=== PATIENT | male | born 1965 | race African-American/Black ===

== ENCOUNTER 2016-10-07 10:36 | Inpatient (IN) | payer OTHER ==
[~2016-10-07] VITALS: Ht 188 cm; Wt 59.9 kg
[~2016-10-07 10:36] MED LIST: CIPRO250 MG ORAL; DOK100 M1 PO; FLUCONAZOLE100 MG ORAL; LANTUS SOL100 UNIT/1 SUBQ; NOVOLIN R100 UNIT/1 SUBQ; NOVOLOG100 UNITS1 SUBQ; OXYBUTYNIN CHLOR5 GM MC; PROTONIX40 MG ORAL; TAMSULOSIN HCL0.4 MG ORAL
[2016-10-07 11:45] LABS: BASOPHILS % (AUTO) 1.2 % (0.0-2.0); EOSINOPHILS % (AUTO) 0.1 % (0.0-3.0); MEAN CORPUSCULAR HEMOGLOBIN 34.8 PG (27.0-31.0); MEAN CORPUSCULAR HGB CONC 32.9 G/DL (32.0-36.0); MEAN CORPUSCULAR VOLUME 106 FL (80-99); MEAN PLATELET VOLUME 8.2 FL (6.5-10.1); NEUTROPHILS % (AUTO) 77.7 % (45.0-75.0); PLATELET COUNT 153 K/UL (150-450); RED BLOOD COUNT 4.58 M/UL (4.70-6.10); RED CELL DISTRIBUTION WIDTH 11.7 % (11.6-14.8); WHITE BLOOD COUNT 10.4 K/UL (4.8-10.8)
[2016-10-07 11:57] LABS: PROTHROMBIN TIME 10.3 SEC (9.30-11.50)
[2016-10-07 11:59] LABS: ALANINE AMINOTRANSFERASE 25 U/L (3-41); ALBUMIN/GLOBULIN RATIO 1.3 (1.0-2.7); ANION GAP 34 (5-15); ASPARTATE AMINO TRANSFERASE 13 U/L (5-40); CALCIUM 9.7 mg/dL (8.6-10.2); CARBON DIOXIDE 11 mEQ/L (20-30); CHLORIDE 87 mEQ/L (98-107); GLOMERULAR FILTRATION RATE > 60 mL/min (>60); HEMOLYSIS 4; LIPASE 12 U/L (< 60); SODIUM 132 mEQ/L (135-145); TOTAL PROTEIN 7.8 g/dL (6.6-8.7); TROPONIN I < 0.30 ng/mL (<=0.30)
[2016-10-07 12:00] VITALS: BP 117/77
[2016-10-07 12:00] LABS: REFLEX LACTIC ACID YES OR NO YES
--- NOTE | 2016-10-07 12:05 | Diagnostic Imaging Report ---
Indication: Chest Pain Comparison: None A single view chest radiograph was obtained. Findings: Ill-defined right basilar density noted. Pneumonia suspected. Heart size is normal. Bones are osteopenic. Impression: Right basilar pneumonia suspected. Please correlate clinically
[2016-10-07 12:10] LABS: CKMB < 1.5 ng/mL (< 6.7)
[2016-10-07] MEDS ORDERED: Albuterol ud Inhalation HHN ONE (12:15)
[2016-10-07] MEDS ORDERED: Ipratropium 0.02% Inh Soln 2.5ml UD HHN ONE (12:15)
[2016-10-07 12:38] LABS: APPEARANCE,URINE CLEAR; KETONES,URINE 4+ (NEGATIVE); LEUKOCYTE ESTERASE ,URINE NEGATIVE (NEGATIVE); NITRITE,URINE NEGATIVE (NEGATIVE); PH,URINE 5 (4.5-8.0); PROTEIN,URINE 2+ (NEGATIVE); UROBILINOGEN,URINE NORMAL MG/DL (0.0-1.0)
[2016-10-07 12:54] LABS: BACTERIA,URINE OCCASIONAL /HPF; SQUAMOUS EPITHELIAL CELL,UR OCCASIONAL /LPF (NONE/OCC); WBC,URINE 0-2 /HPF (0 - 0)
[2016-10-07 12:55] LABS: MUCUS,URINE OCCASIONAL /LPF (NONE/OCC)
--- NOTE | 2016-10-07 14:26 | Emergency Room Report ---
History of Present Illness General Chief Complaint: Dyspnea/Respdistress Source: Patient Present Illness HPI Patient presents with complaints of cough and congestion General weakness questionable low-grade fevers Symptoms ongoing for the past 4 days Denies any diarrhea however he has had increased nausea and vomiting Also has had elevated blood glucose Patient describes the cough is productive Denies any recent travel Denies any neck pain or photophobia Allergies: Coded Allergies: No Known Allergies (Unverified , 12/17/15) Patient History Past Medical History: see triage record Pertinent Family History: none Reviewed Nursing Documentation: PMH: Agreed, PSxH: Agreed Nursing Documentation-PMH Hx Cardiac Problems: No Hx Hypertension: No Hx Pacemaker: No Hx Asthma: No Hx COPD: No Hx Diabetes: No Hx Cancer: No Hx Gastrointestinal Problems: No Hx Dialysis: No History Of Psychiatric Problem: No Hx Neurological Problems: No Hx Cerebrovascular Accident: No Hx Seizures: No Review of Systems All Other Systems: negative except mentioned in HPI Physical Exam Vital Signs Date Time Temp Pulse Resp B/P Pulse Ox O2 Delivery O2 Flow Rate FiO2 10/07/16 10:35 98.1 113 18 128/80 98 Room Air Sp02 EP Interpretation: reviewed, normal General Appearance: no apparent distress Head: normocephalic, atraumatic Eyes: bilateral eye EOMI, bilateral eye PERRL ENT: hearing grossly normal, TMs + canals normal, uvula midline, dry mucus membranes Neck: full range of motion, supple, no meningismus, no bony tend Respiratory: no respiratory distress, no retraction, no accessory muscle use, crackles - Diffusely, and appears tachypnic Cardiovascular #1: normal peripheral pulses, regular rate, rhythm, no edema, no gallop, no JVD, no murmur Gastrointestinal: normal bowel sounds, non tender, soft, no mass, no organomegaly, non-distended, no guarding, no hernia, no pulsatile mass, no rebound Genitourinary: no CVA tenderness Musculoskeletal: normal inspection Neurologic: oriented x3, responsive, automation qa analyst III-XII nml as tested, motor strength/ tone normal, sensory intact Psychiatric: mood/affect normal Skin: warm/dry, palpation normal, other - poor turgor Lymphatic: normal inspection, no adenopathy Medical Decision Making Diagnostic Impression: Primary Impression: Pneumonia Additional Impressions: Dehydration Hyperglycemia ER Course Patient is a fairly complex patient with multiple differential to consideration including but not limited to cardiac cardiopulmonary and vascular emergencies Patient's x-ray imaging shows a right lower lobe infiltrate patient's glucose remains elevated Patient required acute intervention including hydration and antibiotics At this time admitted for further care Labs Test 10/07/16 11:30 10/07/16 12:20 White Blood Count 10.4 K/UL (4.8-10.8) Red Blood Count 4.58 M/UL (4.70-6.10) Hemoglobin 16.0 G/DL (14.2-18.0) Hematocrit 48.5 % (42.0-52.0) Mean Corpuscular Volume 106 FL (80-99) Mean Corpuscular Hemoglobin 34.8 PG (27.0-31.0) Mean Corpuscular Hemoglobin Concent 32.9 G/DL (32.0-36.0) Red Cell Distribution Width 11.7 % (11.6-14.8) Platelet Count 153 K/UL (150-450) Mean Platelet Volume 8.2 FL (6.5-10.1) Neutrophils (%) (Auto) 77.7 % (45.0-75.0) Lymphocytes (%) (Auto) 6.0 % (20.0-45.0) Monocytes (%) (Auto) 15.0 % (1.0-10.0) Eosinophils (%) (Auto) 0.1 % (0.0-3.0) Basophils (%) (Auto) 1.2 % (0.0-2.0) Prothrombin Time 10.3 SEC (9.30-11.50) Prothromb Time International Ratio 1.0 (0.9-1.1) Activated Partial Thromboplast Time 31 SEC (23-33) Sodium Level 132 mEQ/L (135-145) Potassium Level 4.0 mEQ/L (3.4-4.9) Chloride Level 87 mEQ/L (98-107) Carbon Dioxide Level 11 mEQ/L (20-30) Anion Gap 34 (5-15) Blood Urea Nitrogen 4 mg/dL (7-23) Creatinine 1.0 mg/dL (0.7-1.2) Estimat Glomerular Filtration Rate > 60 mL/min (>60) Glucose Level 384 mg/dL (74-106) Lactic Acid Level 2.10 mmol/L (0.66-2.22) Calcium Level 9.7 mg/dL (8.6-10.2) Total Bilirubin 0.4 mg/dL (0.0-1.2) Aspartate Amino Transf (AST/SGOT) 13 U/L (5-40) Alanine Aminotransferase (ALT/SGPT) 25 U/L (3-41) Alkaline Phosphatase 90 U/L (40-129) Total Creatine Kinase 24 U/L (38-174) Creatine Kinase MB < 1.5 ng/mL (< 6.7) Creatine Kinase MB Relative Index Troponin I < 0.30 ng/mL (<=0.30) Pro-B-Type Natriuretic Peptide 407 pg/mL (0-125) Total Protein 7.8 g/dL (6.6-8.7) Albumin 4.5 g/dL (3.5-5.2) Globulin 3.3 g/dL Albumin/Globulin Ratio 1.3 (1.0-2.7) Lipase 12 U/L (< 60) Urine Color Pale yellow Urine Appearance Clear Urine pH 5 (4.5-8.0) Urine Specific [place] 1.020 (1.005-1.035) Urine Protein 2+ (NEGATIVE) Urine Glucose (UA) 4+ (NEGATIVE) Urine Ketones 4+ (NEGATIVE) Urine Occult Blood 1+ (NEGATIVE) Urine Nitrite Negative (NEGATIVE) Urine Bilirubin Negative (NEGATIVE) Urine Urobilinogen Normal MG/DL (0.0-1.0) Urine Leukocyte Esterase Negative (NEGATIVE) Urine RBC 2-4 /HPF (0 - 0) Urine WBC 0-2 /HPF (0 - 0) Urine Squamous Epithelial Cells Occasional /LPF Urine Bacteria Occasional /HPF (NONE) Urine Mucus Occasional /LPF Rhythm Strip Diag. Results EP Interpretation: yes Rate: 105 Rhythm: no PVC's, no ectopy, other - sinus tach Chest X-Ray Diagnostic Results EP Interpretation: Yes Findings: no effusion, no pneumothorax, other - Right lower lobe infiltrate Number of Views: 1 Last Vital Signs Date Time Temp Pulse Resp B/P Pulse Ox O2 Delivery O2 Flow Rate FiO2 10/07/16 12:00 98.1 103 20 117/77 99 Room Air Status: improved Disposition: ADMITTED INPATIENT Condition: Serious Referrals: SUZAN HARMON,REFERRING (PCP) ALONZO ARNOLD D.O. Oct 07, 2016 14:26
[2016-10-07 15:00] VITALS: BP 114/73
[2016-10-07 17:16] VITALS: BP 110/64
--- NOTE | 2016-10-07 18:49 | Cardiology Report ---
APPROVED REPORT EKG Measurement Heart [id number] Sinus tachycardia Possible Left atrial enlargement Cannot rule out Anterior infarct, age undetermined Abnormal ECG
[2016-10-07] MEDS ORDERED: DuoNeb 0.5-3(2.5)mg/3ml neb HHN PRN (19:45)
[2016-10-07] MEDS ORDERED: Miralax 17gm pkt ORAL PRN (19:45)
[2016-10-07] MEDS ORDERED: Nitroglycerin Subl 0.4mg tab (Bottle Of 25) SL PRN (19:45)
[2016-10-07] MEDS ORDERED: Mylanta II UD 30ml ORAL PRN (19:45)
[2016-10-07 20:00] VITALS: BP 120/81
[2016-10-07] MEDS: Heparin 5000 units/ml inj SUBQ SCH (21:00)
[2016-10-07] MEDS: Promethazine/Codeine 5ml UD ORAL PRN (21:01)
[2016-10-07] MEDS: Cefepime HCl 1 GM in D5W 55 ML IV SCH (21:01)
[2016-10-07] MEDS: NovoLOG Insulin Flexpen SUBQ SCH (21:04)
[2016-10-08] VITALS: BP 113/71
[2016-10-08] MEDS: Promethazine/Codeine 5ml UD ORAL PRN (00:57)
[2016-10-08] MEDS ORDERED: Potassium Chloride 40 MEQ in Sodium Chloride 550 ML IV ONE (02:00)
[2016-10-08 04:00] VITALS: BP 103/67
[2016-10-08] MEDS: NovoLOG Insulin Flexpen SUBQ SCH ×4 (05:58→21:42)
[2016-10-08 07:15] LABS: BASOPHILS % (AUTO) 0.8 % (0.0-2.0); LYMPHOCYTES % (AUTO) 8.2 % (20.0-45.0); MEAN CORPUSCULAR HEMOGLOBIN 34.7 PG (27.0-31.0); MEAN CORPUSCULAR HGB CONC 33.9 G/DL (32.0-36.0); MEAN CORPUSCULAR VOLUME 102 FL (80-99); MEAN PLATELET VOLUME 7.8 FL (6.5-10.1); MONOCYTES % (AUTO) 14.6 % (1.0-10.0); NEUTROPHILS % (AUTO) 76.4 % (45.0-75.0); PLATELET COUNT 133 K/UL (150-450); RED BLOOD COUNT 3.61 M/UL (4.70-6.10)
[2016-10-08 07:46] LABS: ANION GAP 18 (5-15); CALCIUM 8.9 mg/dL (8.6-10.2); CARBON DIOXIDE 17 mEQ/L (20-30); CHLORIDE 92 mEQ/L (98-107); CREATININE 0.7 mg/dL (0.7-1.2); GLOMERULAR FILTRATION RATE > 60 mL/min (>60); HEMOLYSIS 0; PHOSPHORUS 1.3 mg/dL (2.5-4.8); POTASSIUM 2.9 mEQ/L (3.4-4.9); SODIUM 127 mEQ/L (135-145)
[2016-10-08 08:00] VITALS: BP 99/60
[2016-10-08] MEDS: Heparin 5000 units/ml inj SUBQ SCH ×2 (08:10→21:41)
--- NOTE | 2016-10-08 08:59 | Consultation ---
Consult Note Consult Note ID CONSULT: Dict# [id number] Assessment/Plan ASSESSMENT: 51 y/o male with: // RLL PNA - SCx, legionella UAg pending - CXR 10/07: Right basilar pneumonia suspected - h/o right empyema SP VATS // Periodontal disease // Acute leukocytosis - mild, afebrile // Unintentional weigh loss / cachexia r/o HIV, TB, SBE, CA, malabsorption - h/o PPD(-) // Hyponatremia / electrolyte imbalance // Chronic pancreatitis // Tobacco abuse // NKDA // Full Code PLAN: - continue cefepime d# 1, add azithromycin atypical coverage - check HIV, PPD, influenza, tumor markers, consider CT imaging - f/u cultures, legionella UAg - monitor CBC, temperatures - monitor BMP - monitor CXR Thanks! Will follow HANH LUGO Oct 08, 2016 08:59
[2016-10-08] MEDS: Cefepime HCl 1 GM in D5W 55 ML IV SCH ×2 (09:24→21:00)
[2016-10-08] MEDS ORDERED: Azithromycin 250mg tab ORAL ONE (10:00)
[2016-10-08] MEDS ORDERED: PPD Tuberculin Skin Test 5TU IDERMAL ONE (11:00)
--- NOTE | 2016-10-08 11:27 | Consultation ---
DATE OF CONSULTATION: 10/08/2016 INFECTIOUS DISEASE CONSULTATION: REQUESTING PHYSICIAN: Pio Stover M.D. REASON FOR CONSULTATION: Pneumonia. HISTORY OF PRESENT ILLNESS: This is a 51-year-old male admitted on 10/07/2016 with productive cough x4 days. Chest x-ray shows suspected right lower lobe pneumonia. He does have a history of right-sided empyema previously requiring VATS. He has associated unintentional weight loss and is cachectic. He is afebrile with mild leukocytosis with left shift. Lactic acidosis, lipase and liver function tests are within normal limits. Sputum cultures and blood cultures are pending. He has been started on empiric cefepime and ID now consulted to assist in management. PAST MEDICAL HISTORY: 1. Chronic pancreatitis. 2. Hiatal hernia. 3. BPH. 4. Right-sided empyema. PAST SURGICAL HISTORY: VATS on the right side. FAMILY HISTORY: Noncontributory. SOCIAL HISTORY: The patient is an active smoker. ALLERGIES: No known drug allergies. MEDICATIONS: 1. Cefepime. 2. Subcutaneous heparin. 3. DuoNebs. REVIEW OF SYSTEMS: As per history of present illness. Ten systems reviewed. All pertinent positives and negatives noted. PHYSICAL EXAMINATION: VITAL SIGNS: Maximum temperature 98.4, blood pressure 103/67, heart rate in the 70s, respiratory rate 20, and saturating 96% on room air. GENERAL: No apparent distress. Nontoxic appearing. CARDIOVASCULAR: Regular rate and rhythm. No murmurs. HEENT EXAM: No thrush. Poor dentition. PULMONARY: Clear to auscultation bilaterally. ABDOMINAL EXAM: Bowel sounds present. Soft, nondistended, and nontender. EXTREMITIES: No edema. SKIN EXAM: No rash. NEUROLOGICAL EXAM: Alert and oriented x3, nonfocal. LABORATORY DATA: White blood cell count of 11 increased from 10.4 with left shift, hemoglobin 12.5, and platelets 133,000. Sodium 127, potassium 2.9, chloride 92, bicarb 17, BUN 6, creatinine 0.7. Lactic acid 2.1 decreased to 1.3. Lipase and liver function tests within normal limits. Troponin negative x1. BNP 407. MICROBIOLOGY: 1. 10/07/2016 sputum culture pending. 2. 10/07/2016 blood culture pending. IMAGIN10/07/2016 right lower lobe pneumonia suspected. ASSESSMENT: 1. Right lower lobe pneumonia. Sputum culture and Legionella antigens are pending. Chest x-ray shows a suspected right basilar pneumonia. He does have a history of right-sided empyema previously requiring VATS. 2. Periodontal disease. 3. Acute leukocytosis, mild and afebrile. 4. Unintentional weight loss and cachexia, rule out human immunodeficiency, tuberculosis, endocarditis, malignancy, or malabsorption. He has a history of a negative PPDs in the past. 5. Hyponatremia ____/electrolyte imbalance. 6. Chronic pancreatitis. 7. Tobacco abuse. 8. No known drug allergies. 9. Full Code. PLAN: 1. Continue cefepime day #1 and add azithromycin day #1, atypical coverage. 2. Check human immunodeficiency virus PPD influenza and tumor markers. Also consider CT imaging. 3. Follow up cultures and Legionella urine antigen. 4. Monitor CBC and temperatures. 5. Monitor BMP. 6. Monitor chest x-ray. Thank you. We will follow. Kareem Maxwell M.D. DR: INDER JOB#: [id number] CC: Pio Stover M.D.; Fax#: [phone] Garcia M.D; Fax#: [phone]
[2016-10-08 12:00] VITALS: BP 104/69
--- NOTE | 2016-10-08 18:13 | History and Physical ---
History of Present Illness General Date patient seen: Oct 08, 2016 Reason for Hospitalization: Dyspnea/Respdistress Present Illness HPI 51 year old male with hx of copd presents with complaints of cough and congestion low-grade fevers for the past 4 days the cough is productive. He has a history of pneumonia and empyema. Looks chronically ill and cachectic. Allergies: Coded Allergies: No Known Allergies (Unverified , 12/17/15) Medication History Scheduled Fluconazole (Fluconazole), 100 MG ORAL DAILY Insulin Aspart (Novolog Flexpen), 12 UNITS SUBQ NOVOTIAC Insulin Glargine (Lantus), 20 UNIT SUBQ BEDTIME Insulin Regular, Human* (Novolin R*), 0 SUBQ .SLIDING SCALE, (Reported) Pantoprazole* (Protonix*), 40 MG ORAL DAILY Miscellaneous Medications Docusate Sodium (Dok), 100 MG PO, (Reported) Patient History Healthcare decision maker Resuscitation status Full Code Advanced Directive on File Past Medical/Surgical History Past Medical/Surgical History: (1) Pneumonia (2) Abdominal pain (3) Hyperglycemia Review of Systems All Other Systems: negative except mentioned in HPI Physical Exam General Appearance: cachetic Lines, tubes and drains: peripheral, central line HEENT: normocephalic, atraumatic Neck: non-tender, normal alignment Respiratory/Chest: chest wall non-tender, lungs clear Abdomen: normal bowel sounds, non tender Genitourinary/Rectal: normal genital exam, normal rectal exam Extremities: normal range of motion, non-tender, non-pitting 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 Lymphatic: anterior cervical Last 24 Hour Vital Signs Date Time Temp Pulse Resp B/P Pulse Ox O2 Delivery O2 Flow Rate FiO2 10/08/16 16:15 90 18 97 Room Air 10/08/16 16:14 90 18 97 Room Air 10/08/16 12:00 98.2 86 20 104/69 97 Room Air 10/08/16 11:42 89 18 98 Room Air 10/08/16 11:41 89 18 98 Room Air 10/08/16 08:49 89 18 98 Room Air 10/08/16 08:43 88 20 Room Air 21 10/08/16 08:43 88 18 98 Room Air 10/08/16 08:00 98.1 76 20 99/60 96 Room Air 10/08/16 06:54 98.1 10/08/16 04:00 98.4 94 18 103/67 100 Room Air 10/08/16 00:00 98.1 106 18 113/71 97 Room Air 10/07/16 21:49 97 18 Room Air 21 10/07/16 20:00 98.1 96 18 120/81 99 Room Air Intake and Output 10/07/16 10/08/16 19:00 07:00 Intake Total 2150 ml 490 ml Output Total 500 ml Balance 2150 ml -10 ml Intake Oral 0 ml 490 ml IV Total 2150 ml Output Urine Total 500 ml # Voids 2 Laboratory Tests Test 10/08/16 05:35 White Blood Count 11.0 K/UL (4.8-10.8) H Red Blood Count 3.61 M/UL (4.70-6.10) L Hemoglobin 12.5 G/DL (14.2-18.0) L Hematocrit 36.9 % (42.0-52.0) L Mean Corpuscular Volume 102 FL (80-99) H Mean Corpuscular Hemoglobin 34.7 PG (27.0-31.0) H Mean Corpuscular Hemoglobin Concent 33.9 G/DL (32.0-36.0) Red Cell Distribution Width 11.0 % (11.6-14.8) L Platelet Count 133 K/UL (150-450) L Mean Platelet Volume 7.8 FL (6.5-10.1) Neutrophils (%) (Auto) 76.4 % (45.0-75.0) H Lymphocytes (%) (Auto) 8.2 % (20.0-45.0) L Monocytes (%) (Auto) 14.6 % (1.0-10.0) H Eosinophils (%) (Auto) 0.0 % (0.0-3.0) Basophils (%) (Auto) 0.8 % (0.0-2.0) Sodium Level 127 mEQ/L (135-145) L Potassium Level 2.9 mEQ/L (3.4-4.9) L Chloride Level 92 mEQ/L (98-107) L Carbon Dioxide Level 17 mEQ/L (20-30) L Anion Gap 18 (5-15) H Blood Urea Nitrogen 6 mg/dL (7-23) L Creatinine 0.7 mg/dL (0.7-1.2) Estimat Glomerular Filtration Rate > 60 mL/min (>60) Glucose Level 432 mg/dL (74-106) H Calcium Level 8.9 mg/dL (8.6-10.2) Phosphorus Level 1.3 mg/dL (2.5-4.8) L Albumin 3.1 g/dL (3.5-5.2) L Height (Feet): 5 Height (Inches): 8.00 Weight (Pounds): 130 Medications Current Medications Medications (Trade) Dose Ordered Sig/Suzette Route PRN Reason Start Time Stop Time Status Last Admin Dose Admin Acetaminophen (Tylenol) 650 mg Q4H PRN ORAL fever 10/07/16 19:45 11/06/16 19:44 10/08/16 14:29 Al Hydroxide/Mg Hydroxide (Mylanta II) 30 ml Q6H PRN ORAL dyspepsia 10/07/16 19:45 11/06/16 19:44 Albuterol/ Ipratropium 3 ml 3 ml Q4H PRN HHN Shortness of Breath 10/07/16 19:45 10/12/16 19:44 Azithromycin 250 mg 250 mg DAILY ORAL 10/09/16 09:00 10/16/16 08:59 Cefepime HCl/ Dextrose (Maxipime/D5W) 55 ml @ 110 mls/hr EVERY 12 HOURS IV 10/07/16 21:00 10/14/16 20:59 10/08/16 09:24 Dextrose (Dextrose 50%) STAT PRN IV Hypoglycemia 10/07/16 19:45 11/06/16 19:44 Heparin Sodium (Porcine) (Heparin 5000 units/ml) 5,000 units EVERY 12 HOURS SUBQ 10/07/16 21:00 11/06/16 20:59 Insulin Aspart (NovoLOG) BEFORE MEALS AND HS SUBQ 10/07/16 21:00 11/06/16 20:59 10/08/16 17:38 Nitroglycerin (Ntg) 0.4 mg Q5MIN X 3 DOSES PRN SL Prn Chest Pain 10/07/16 19:45 11/06/16 19:44 Ondansetron HCl (Zofran) 4 mg Q6H PRN IVP Nausea & Vomiting 10/07/16 19:45 11/06/16 19:44 Polyethylene Glycol (Miralax) 17 gm DAILYPRN PRN ORAL Constipation 10/07/16 19:45 11/06/16 19:44 Potassium Chloride (KCl 20mEq/100ml Premix) 100 ml @ 50 mls/hr ONCE ONCE IVPB 10/08/16 17:30 10/08/16 19:29 Promethazine HCl/ Codeine (Phenergan with Codeine) 5 ml Q4H PRN ORAL For Cough 10/07/16 19:45 11/06/16 19:44 10/08/16 00:57 Temazepam (Restoril) 15 mg HSPRN PRN ORAL Insomnia 10/07/16 19:45 10/14/16 19:44 Assessment/Plan Problem List: (1) Pneumonia ICD Codes: J18.9 - Pneumonia, unspecified organism SNOMED: 998606086 (2) COPD (chronic obstructive pulmonary disease) ICD Codes: J44.9 - Chronic obstructive pulmonary disease, unspecified SNOMED: 51469076 (3) Cachectic ICD Codes: R64 - Cachexia SNOMED: 758482217 Assessment/Plan respiratory treatment check sputum iv steroids iv antibiotics GISSELLE DALY Oct 08, 2016 18:13
[2016-10-08 20:00] VITALS: BP 91/59
[2016-10-08] MEDS: Norco 5mg/325mg tab ORAL PRN (21:55)
[2016-10-09 00:52] VITALS: BP 102/66
[2016-10-09] MEDS: Levemir Flexpen SUBQ SCH ×2 (01:03→21:01)
[2016-10-09] MEDS ORDERED: Potassium Chloride 40 MEQ in Sodium Chloride 550 ML IV ONE (02:00)
[2016-10-09 04:00] VITALS: BP 98/65
[2016-10-09] MEDS: NovoLOG Insulin Flexpen SUBQ SCH ×4 (06:47→21:02)
[2016-10-09 08:00] VITALS: BP 90/65
[2016-10-09] MEDS: Norco 5mg/325mg tab ORAL PRN ×2 (08:21→21:00)
[2016-10-09] MEDS: Azithromycin 250mg tab ORAL SCH (08:21)
[2016-10-09] MEDS: Cefepime HCl 1 GM in D5W 55 ML IV SCH ×2 (08:21→21:01)
[2016-10-09] MEDS: Heparin 5000 units/ml inj SUBQ SCH ×2 (09:00→20:54)
[2016-10-09 09:58] LABS: PSA TOTAL < 0.1 ng/mL (< 3.5)
[2016-10-09 12:00] VITALS: BP 96/64
--- NOTE | 2016-10-09 13:58 | Consultation ---
Consult Note Consult Note HPI 51 y old- Patient presents with complaints of cough and congestion General weakness questionable low-grade fevers Symptoms ongoing for the past 4 days Denies any diarrhea however he has had increased nausea and vomiting Also has had elevated blood glucose Patient describes the cough is productive Denies any recent travel Denies any neck pain or photophobia . Assessment/Plan status: Proteinuria- HypoNatremia- HypoKalemia- HypoPhosphatemia HyperGlycemia Elevated Cancer Markers ( CEA and CA19-9) Pneumonia COPD Cachexia Plan: K and Na and Phos replacement BS control Monitor renal parameters- Urine studies- EMELINA STOVER Oct 09, 2016 13:58
--- NOTE | 2016-10-09 15:17 | Consultation ---
DATE OF CONSULTATION: 10/08/2016 NOTE: POOR AUDIO QUALITY ENDOCRINOLOGY CONSULTATION: CONSULTING PHYSICIAN: Mat Thomas M.D. REFERRING PHYSICIAN: Pio Stover M.D. Reason For Consultation: Acute 00:28 HISTORY OF PRESENT ILLNESS: I was asked to see this 51-year-old Dr. Pio Stover in Endocrinology consultation for evaluation and management of type 2 diabetes mellitus for acute pneumonia. type 2 diabetic with sliding scale Lantus insulin 20 units nightly. PAST MEDICAL HISTORY: PAST SURGICAL HISTORY: . FAMILY HISTORY: Noncontributory. PHYSICAL EXAMINATION: GENERAL: The patient is in no acute distress. VITAL SIGNS: Blood pressure 91/59, pulse 91, respiratory rate 18 . HEENT: Pupils are equal and reactive to light . NECK : No thyroid gland is palpable . RESPIRATORY: . LABORATORY DATA: Glucose of 196 mg% . ASSESSMENT: 1. distress. 2. Hypertension. 3. Pneumonia. 4. . 5. . PLAN: basal insulin is Levemir 20 mg units nightly NovoLog q.i.d. gabapentin. The patient primary physician. Mat Thomas M.D. DR: Nehemiah JOB#: [id number] CC:
[2016-10-09] MEDS ORDERED: Sodium Phosphate 30 MM in NS 275 ML IVPB ONE (15:30)
[2016-10-09 16:02] VITALS: BP 99/70
--- NOTE | 2016-10-09 16:25 | Pulmonology Progress Note ---
Assessment/Plan Problems: (1) Pneumonia (2) COPD (chronic obstructive pulmonary disease) (3) Cachectic Assessment/Plan continue antibiotics respiratory treatment malignancy work up K supplement Subjective ROS Limited/Unobtainable: No Interval Events: still c.o left chest wall pain Allergies: Coded Allergies: No Known Allergies (Unverified , 12/17/15) Objective Last 24 Hour Vital Signs Date Time Temp Pulse Resp B/P Pulse Ox O2 Delivery O2 Flow Rate FiO2 10/09/16 16:02 97.9 80 19 99/70 100 Room Air 10/09/16 15:00 Room Air 21 10/09/16 15:00 Room Air 10/09/16 12:00 97.7 70 20 96/64 97 Room Air 10/09/16 11:45 83 18 98 Room Air 10/09/16 11:45 81 16 98 Room Air 21 10/09/16 09:20 97.9 10/09/16 08:00 98.4 95 20 90/65 98 Room Air 10/09/16 07:07 84 18 Room Air 10/09/16 07:07 Room Air 10/09/16 07:07 Room Air 21 10/09/16 04:00 97.9 68 19 98/65 98 Room Air 10/09/16 02:27 Room Air 10/09/16 02:27 Room Air 10/09/16 00:52 98.6 81 19 102/66 99 Room Air 10/08/16 23:28 Room Air 10/08/16 23:28 Room Air 10/08/16 20:00 97.7 91 18 91/59 98 Room Air 10/08/16 19:20 82 20 Room Air 21 10/08/16 19:15 83 18 95 Room Air 21 10/08/16 19:15 82 18 95 Room Air 21 Intake and Output 10/08/16 10/09/16 19:00 07:00 Intake Total 720 ml 240 ml Output Total 625 ml 0 ml Balance 95 ml 240 ml Intake Oral 720 ml 240 ml Output Urine Total 625 ml 0 ml # Voids 4 2 # Bowel Movements 2 General Appearance: WD/WN HEENT: normocephalic, atraumatic Respiratory/Chest: chest wall non-tender, lungs clear Cardiovascular: normal peripheral pulses, normal rate Abdomen: normal bowel sounds, soft, non tender Skin: no lesions 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 Lymphatic: no neck adenopathy Musculoskeletal: no effusion Microbiology Date/Time Source Procedure Growth Status 10/07/16 11:15 Blood Blood Culture - Preliminary Gram Negative Bacillus 1 Resulted 10/07/16 11:15 Blood Blood Culture - Preliminary NO GROWTH AFTER 24 HOURS Resulted 10/08/16 02:00 Sputum Gram Stain - Final Resulted 10/08/16 02:00 Sputum Sputum Culture Pending Resulted 10/08/16 22:45 Stool Clostridium difficile Toxin Assay - Final Complete Laboratory Tests 10/09/16 09:15: Carcinoembryonic Antigen 10.4H, CA 19-9 Antigen 87.37H, Prostate Specific Antigen < 0.1, HIV (1&2) Antibody Rapid Negative Current Medications Medications (Trade) Dose Ordered Sig/Suzette Route PRN Reason Start Time Stop Time Status Last Admin Dose Admin Acetaminophen (Tylenol) 650 mg Q4H PRN ORAL fever 10/07/16 19:45 11/06/16 19:44 10/08/16 14:29 Acetaminophen/ Hydrocodone Bitart (Orange 5/325) 1 tab Q4H PRN ORAL Moderate Pain (Pain Scale 4-6) 10/08/16 18:15 10/15/16 18:14 10/09/16 08:21 Albuterol/ Ipratropium 3 ml 3 ml Q4H PRN HHN Shortness of Breath 10/07/16 19:45 10/12/16 19:44 Azithromycin (Zithromax) 250 mg DAILY ORAL 10/09/16 09:00 10/16/16 08:59 10/09/16 08:21 Cefepime HCl/ Dextrose (Maxipime/D5W) 55 ml @ 110 mls/hr EVERY 12 HOURS IV 10/07/16 21:00 10/14/16 20:59 10/09/16 08:21 Dextrose (Dextrose 50%) STAT PRN IV Hypoglycemia 10/07/16 19:45 11/06/16 19:44 Heparin Sodium (Porcine) (Heparin 5000 units/ml) 5,000 units EVERY 12 HOURS SUBQ 10/07/16 21:00 11/06/16 20:59 10/08/16 21:41 Insulin Aspart (NovoLOG) BEFORE MEALS AND HS SUBQ 10/07/16 21:00 11/06/16 20:59 10/09/16 12:04 Insulin Detemir 20 units 20 units BEDTIME SUBQ 10/09/16 00:00 11/08/16 00:00 10/09/16 01:03 Nitroglycerin (Ntg) 0.4 mg Q5MIN X 3 DOSES PRN SL Prn Chest Pain 10/07/16 19:45 11/06/16 19:44 Ondansetron HCl (Zofran) 4 mg Q6H PRN IVP Nausea & Vomiting 10/07/16 19:45 11/06/16 19:44 10/09/16 11:57 Pantoprazole (Protonix) 40 mg EVERY 12 HOURS ORAL 10/09/16 21:00 11/08/16 20:59 Polyethylene Glycol (Miralax) 17 gm DAILYPRN PRN ORAL Constipation 10/07/16 19:45 11/06/16 19:44 Promethazine HCl/ Codeine (Phenergan with Codeine) 5 ml Q4H PRN ORAL For Cough 10/07/16 19:45 11/06/16 19:44 10/08/16 00:57 Sodium Phosphate/ Sodium Chloride (NaPO4/Sodium Chloride) 285 ml @ 47.5 mls/hr ONCE ONCE IVPB 10/09/16 15:30 10/09/16 21:29 10/09/16 16:16 Temazepam (Restoril) 15 mg HSPRN PRN ORAL Insomnia 10/07/16 19:45 10/14/16 19:44 GISSELLE DALY Oct 09, 2016 16:25
[2016-10-09] MEDS ORDERED: Promethazine/Codeine 5ml UD ORAL PRN (16:30)
[2016-10-09] MEDS ORDERED: NovoLOG Insulin Flexpen SUBQ SCH (18:00)
--- NOTE | 2016-10-09 19:03 | Infectious Diseases Prog Note ---
Assessment/Plan Assessment/Plan ASSESSMENT: 51 y/o male with: // RLL PNA - SCx, legionella UAg pending - CXR 10/07: Right basilar pneumonia suspected - h/o right empyema SP VATS // Periodontal disease // Acute leukocytosis - mild, afebrile // HIV : Neg // Blood Cx : GNR // Unintentional weigh loss / cachexia r/o HIV, TB, SBE, CA, malabsorption - h/o PPD(-) // Hyponatremia / electrolyte imbalance // Chronic pancreatitis // Tobacco abuse // NKDA // Full Code PLAN: - continue cefepime , azithromycin d# 2 - check , PPD, influenza, tumor markers, consider CT imaging - f/u cultures, legionella UAg - monitor CBC, temperatures - monitor BMP - monitor CXR Subjective Constitutional: Denies: anorexia, chills, drenching sweats, fatigue, fever, no symptoms, other Allergies: Coded Allergies: No Known Allergies (Unverified , 12/17/15) Objective Vital Signs Last 24 Hour Vital Signs Date Time Temp Pulse Resp B/P Pulse Ox O2 Delivery O2 Flow Rate FiO2 10/09/16 16:02 97.9 80 19 99/70 100 Room Air 10/09/16 15:00 Room Air 21 10/09/16 15:00 Room Air 10/09/16 12:00 97.7 70 20 96/64 97 Room Air 10/09/16 11:45 83 18 98 Room Air 21 10/09/16 11:45 81 16 98 Room Air 10/09/16 09:20 97.9 10/09/16 08:00 98.4 95 20 90/65 98 Room Air 10/09/16 07:07 84 18 Room Air 10/09/16 07:07 Room Air 10/09/16 07:07 Room Air 21 10/09/16 04:00 97.9 68 19 98/65 98 Room Air 10/09/16 02:27 Room Air 10/09/16 02:27 Room Air 10/09/16 00:52 98.6 81 19 102/66 99 Room Air 10/08/16 23:28 Room Air 10/08/16 23:28 Room Air 10/08/16 20:00 97.7 91 18 91/59 98 Room Air 10/08/16 19:20 82 20 Room Air 21 10/08/16 19:15 83 18 95 Room Air 21 10/08/16 19:15 82 18 95 Room Air 21 Height (Feet): 5 Height (Inches): 8.00 Weight (Pounds): 130 HEENT: atraumatic Respiratory/Chest: lungs clear Cardiovascular: normal rate Abdomen: soft, non tender Microbiology Date/Time Source Procedure Growth Status 10/07/16 11:15 Blood Blood Culture - Preliminary Gram Negative Bacillus 1 Resulted 10/07/16 11:15 Blood Blood Culture - Preliminary NO GROWTH AFTER 24 HOURS Resulted 10/08/16 02:00 Sputum Gram Stain - Final Resulted 10/08/16 02:00 Sputum Sputum Culture Pending Resulted 10/08/16 22:45 Stool Clostridium difficile Toxin Assay - Final Complete Laboratory Tests Test 10/09/16 09:15 Carcinoembryonic Antigen 10.4 ng/mL H CA 19-9 Antigen 87.37 U/mL (< 37) H Prostate Specific Antigen < 0.1 ng/mL (< 3.5) HIV (1&2) Antibody Rapid Negative (NEGATIVE) Current Medications Medications (Trade) Dose Ordered Sig/Suzette Route PRN Reason Start Time Stop Time Status Last Admin Dose Admin Acetaminophen (Tylenol) 650 mg Q4H PRN ORAL fever 10/07/16 19:45 11/06/16 19:44 10/08/16 14:29 Acetaminophen/ Hydrocodone Bitart ([place] 5/325) 1 tab Q4H PRN ORAL Moderate Pain (Pain Scale 4-6) 10/08/16 18:15 10/15/16 18:14 10/09/16 08:21 Albuterol/ Ipratropium 3 ml 3 ml Q4H PRN HHN Shortness of Breath 10/07/16 19:45 10/12/16 19:44 Azithromycin (Zithromax) 250 mg DAILY ORAL 10/09/16 09:00 10/16/16 08:59 10/09/16 08:21 Cefepime HCl/ Dextrose (Maxipime/D5W) 55 ml @ 110 mls/hr EVERY 12 HOURS IV 10/07/16 21:00 10/14/16 20:59 10/09/16 08:21 Dextrose (Dextrose 50%) STAT PRN IV Hypoglycemia 10/07/16 19:45 11/06/16 19:44 Heparin Sodium (Porcine) (Heparin 5000 units/ml) 5,000 units EVERY 12 HOURS SUBQ 10/07/16 21:00 11/06/16 20:59 10/08/16 21:41 Insulin Aspart (NovoLOG) BEFORE MEALS AND HS SUBQ 10/07/16 21:00 11/06/16 20:59 10/09/16 18:15 Insulin Aspart (NovoLOG) 5 units NOVOTIAC SUBQ 10/09/16 18:00 11/08/16 17:59 10/09/16 18:15 Insulin Detemir 20 units 20 units BEDTIME SUBQ 10/09/16 00:00 11/08/16 00:00 10/09/16 01:03 Nitroglycerin (Ntg) 0.4 mg Q5MIN X 3 DOSES PRN SL Prn Chest Pain 10/07/16 19:45 11/06/16 19:44 Ondansetron HCl (Zofran) 4 mg Q6H PRN IVP Nausea & Vomiting 10/07/16 19:45 11/06/16 19:44 10/09/16 11:57 Pantoprazole (Protonix) 40 mg EVERY 12 HOURS ORAL 10/09/16 21:00 11/08/16 20:59 Polyethylene Glycol (Miralax) 17 gm DAILYPRN PRN ORAL Constipation 10/07/16 19:45 11/06/16 19:44 Promethazine HCl/ Codeine (Phenergan with Codeine) 5 ml Q4H PRN ORAL For Cough 10/09/16 16:30 11/08/16 16:29 Sodium Phosphate/ Sodium Chloride (NaPO4/Sodium Chloride) 285 ml @ 47.5 mls/hr ONCE ONCE IVPB 10/09/16 15:30 10/09/16 21:29 10/09/16 16:16 Temazepam (Restoril) 15 mg HSPRN PRN ORAL Insomnia 10/07/16 19:45 10/14/16 19:44 EDEN RUIZ M.D. Oct 09, 2016 19:03
[2016-10-09 20:00] VITALS: BP 91/66
[2016-10-10] VITALS: BP 90/59
[2016-10-10 04:00] VITALS: BP 93/57
[2016-10-10] MEDS: NovoLOG Insulin Flexpen SUBQ SCH ×7 (06:30→20:36)
[2016-10-10 07:18] LABS: BASOPHILS % (AUTO) 0.6 % (0.0-2.0); EOSINOPHILS % (AUTO) 0.1 % (0.0-3.0); LYMPHOCYTES % (AUTO) 9.4 % (20.0-45.0); MEAN CORPUSCULAR HEMOGLOBIN 34.8 PG (27.0-31.0); MEAN CORPUSCULAR HGB CONC 35.5 G/DL (32.0-36.0); MEAN CORPUSCULAR VOLUME 98 FL (80-99); MONOCYTES % (AUTO) 8.8 % (1.0-10.0); NEUTROPHILS % (AUTO) 81.1 % (45.0-75.0); PLATELET COUNT 161 K/UL (150-450); RED BLOOD COUNT 3.38 M/UL (4.70-6.10); RED CELL DISTRIBUTION WIDTH 10.7 % (11.6-14.8); WHITE BLOOD COUNT 10.6 K/UL (4.8-10.8)
[2016-10-10 07:43] LABS: ALANINE AMINOTRANSFERASE 17 U/L (3-41); ALBUMIN/GLOBULIN RATIO 0.9 (1.0-2.7); ANION GAP 16 (5-15); ASPARTATE AMINO TRANSFERASE 15 U/L (5-40); CALCIUM 8.5 mg/dL (8.6-10.2); CARBON DIOXIDE 25 mEQ/L (20-30); CHLORIDE 96 mEQ/L (98-107); CHOLESTEROL 75 mg/dL (< 200); CHOLESTEROL/HDL RATIO 2.3 (3.3-4.4); CREATININE 0.5 mg/dL (0.7-1.2); CRP QUANT 10.5 mg/dL (< 0.5); GLOMERULAR FILTRATION RATE > 60 mL/min (>60); HEMOLYSIS 3; LDL CHOLESTEROL (CALC.) 29 mg/dL (60-99); LIPASE 29 U/L (< 60); MAGNESIUM 1.7 mg/dL (1.7-2.5); PHOSPHORUS 2.8 mg/dL (2.5-4.8); SODIUM 137 mEQ/L (135-145); TOTAL PROTEIN 5.9 g/dL (6.6-8.7); URIC ACID 1.6 mg/dL (3.0-7.5)
[2016-10-10 07:56] LABS: POTASSIUM 2.4 mEQ/L (3.4-4.9)
[2016-10-10 08:00] VITALS: BP 108/67
[2016-10-10] MEDS: Cefepime HCl 1 GM in D5W 55 ML IV SCH ×2 (08:22→21:00)
[2016-10-10] MEDS: Heparin 5000 units/ml inj SUBQ SCH ×2 (09:00→20:36)
--- NOTE | 2016-10-10 11:35 | General Progress Note ---
Assessment/Plan Status: unchanged Status Narrative K is 2.6 today- Assessment/Plan status; Proteinuria- HypoNatremia- HypoKalemia- HypoPhosphatemia HyperGlycemia Elevated Cancer Markers ( CEA and CA19-9) Pneumonia COPD Cachexia Plan: K and Na and Phos replacement BS control Monitor renal parameters- Urine studies- GI FU per order Subjective ROS Limited/Unobtainable: No Constitutional: Reports: malaise, weakness Allergies: Coded Allergies: No Known Allergies (Unverified , 12/17/15) Objective Last 24 Hour Vital Signs Date Time Temp Pulse Resp B/P Pulse Ox O2 Delivery O2 Flow Rate FiO2 10/10/16 11:11 Room Air 10/10/16 11:11 Room Air 10/10/16 08:00 97.7 70 20 108/67 98 Room Air 10/10/16 07:43 Room Air 10/10/16 07:42 Room Air 10/10/16 07:40 92 18 Room Air 10/10/16 04:00 97.7 71 18 93/57 94 Room Air 10/10/16 03:37 Room Air 21 10/10/16 03:37 Room Air 10/10/16 00:00 97.9 63 18 90/59 98 Room Air 10/09/16 23:20 Room Air 21 10/09/16 23:20 Room Air 10/09/16 21:59 98.6 10/09/16 20:00 98.6 83 18 91/66 99 Room Air 10/09/16 19:07 82 18 96 Room Air 21 10/09/16 19:07 82 18 96 Room Air 21 10/09/16 19:06 86 20 Room Air 21 10/09/16 16:02 97.9 80 19 99/70 100 Room Air 10/09/16 15:00 Room Air 21 10/09/16 15:00 Room Air 10/09/16 12:00 97.7 70 20 96/64 97 Room Air 10/09/16 11:45 83 18 98 Room Air 21 10/09/16 11:45 81 16 98 Room Air 21 Intake and Output 10/09/16 10/10/16 19:00 07:00 Intake Total 870.0 ml 677.5 ml Balance 870.0 ml 677.5 ml Intake Oral 720 ml 480 ml IV Total 150.0 ml 197.5 ml # Voids 3 4 # Bowel Movements 4 3 Laboratory Tests 10/10/16 06:15: White Blood Count 10.6, Red Blood Count 3.38L, Hemoglobin 11.8L, Hematocrit 33.1L, Mean Corpuscular Volume 98, Mean Corpuscular Hemoglobin 34.8H, Mean Corpuscular Hemoglobin Concent 35.5, Red Cell Distribution Width 10.7L, Platelet Count 161, Mean Platelet Volume 8.0, Neutrophils (%) (Auto) 81.1H, Lymphocytes (%) (Auto) 9.4L, Monocytes (%) (Auto) 8.8, Eosinophils (%) (Auto) 0.1, Basophils (%) (Auto) 0.6, Sodium Level 137, Potassium Level 2.4*L, Chloride Level 96L, Carbon Dioxide Level 25, Anion Gap 16H, Blood Urea Nitrogen 5L, Creatinine 0.5L, Estimat Glomerular Filtration Rate > 60, Glucose Level 72L , Uric Acid 1.6L, Calcium Level 8.5L, Phosphorus Level 2.8, Magnesium Level 1.7 , Total Bilirubin 0.3, Gamma Glutamyl Transpeptidase 36, Aspartate Amino Transf (AST/SGOT) 15, Alanine Aminotransferase (ALT/SGPT) 17, Alkaline Phosphatase 89, Total Creatine Kinase 16L, C-Reactive Protein, Quantitative 10.5H, Pro-B-Type Natriuretic Peptide 163H, Total Protein 5.9L, Albumin 2.9L, Globulin 3.0, Albumin/Globulin Ratio 0.9L, Triglycerides Level 68, Cholesterol Level 75, LDL Cholesterol 29L, HDL Cholesterol 32, Cholesterol/HDL Ratio 2.3L, Lipase 29, Vitamin B12 Level > 2000H, Folate [Pending], Thyroid Stimulating Hormone (TSH) 1.250 10/10/16 08:35: Urine Random Sodium 25 Height (Feet): 5 Height (Inches): 8.00 Weight (Pounds): 130 General Appearance: no apparent distress, lethargic Objective other PE not changed EMELINA STOVER Oct 10, 2016 11:35
--- NOTE | 2016-10-10 11:37 | Geriatric Medicine Prog Note ---
DATE: 10/09/2016 NOTE: "POOR AUDIO QUALITY" SUBJECTIVE: Hyperglycemic tonight, is little bit short of breath, hypotension. OBJECTIVE: VITAL SIGNS: Blood pressure 90/59, pulse 63, respirations 18, and temperature 97.9 degrees. RESPIRATORY: Few rhonchi. CARDIOVASCULAR: Regular . ASSESSMENT AND PLAN: Diabetes mellitus type 2. Increase . Increase Levemir to units nightly. Increase NovoLog to 10 units t.i.d. before meals . Mat Thomas M.D. DRWade GARCIA JOB#: [id number] CC:
--- NOTE | 2016-10-10 11:39 | Infectious Diseases Prog Note ---
Assessment/Plan Assessment/Plan ASSESSMENT: 51 y/o male with: // RLL PNA - SCx, : ( Nl Fl and yeast colonizer ) - CXR 10/07: Right basilar pneumonia suspected - h/o right empyema SP VATS // Periodontal disease // Acute leukocytosis - mild, afebrile // HIV : Neg // Blood Cx : PSA // Diarrhea // CA-19. CEA : elevated // Unintentional weigh loss / cachexia - h/o PPD(-) // Chronic pancreatitis // Tobacco abuse // NKDA // Full Code PLAN: - continue cefepime , azithromycin d# 3 ,add Flagyl d# 1 - C/A/P CT :P - f/u cultures ( stool , Ur ) - monitor CBC, temperatures - monitor BMP - monitor CXR - 2DEcho Subjective Allergies: Coded Allergies: No Known Allergies (Unverified , 12/17/15) Subjective no diarrhea Objective Vital Signs Last 24 Hour Vital Signs Date Time Temp Pulse Resp B/P Pulse Ox O2 Delivery O2 Flow Rate FiO2 10/10/16 11:11 Room Air 10/10/16 11:11 Room Air 10/10/16 08:00 97.7 70 20 108/67 98 Room Air 10/10/16 07:43 Room Air 10/10/16 07:42 Room Air 10/10/16 07:40 92 18 Room Air 10/10/16 04:00 97.7 71 18 93/57 94 Room Air 10/10/16 03:37 Room Air 10/10/16 03:37 Room Air 10/10/16 00:00 97.9 63 18 90/59 98 Room Air 10/09/16 23:20 Room Air 21 10/09/16 23:20 Room Air 10/09/16 21:59 98.6 10/09/16 20:00 98.6 83 18 91/66 99 Room Air 10/09/16 19:07 82 18 96 Room Air 21 10/09/16 19:07 82 18 96 Room Air 21 10/09/16 19:06 86 20 Room Air 21 10/09/16 16:02 97.9 80 19 99/70 100 Room Air 10/09/16 15:00 Room Air 10/09/16 15:00 Room Air 10/09/16 12:00 97.7 70 20 96/64 97 Room Air 10/09/16 11:45 83 18 98 Room Air 21 10/09/16 11:45 81 16 98 Room Air 21 Height (Feet): 5 Height (Inches): 8.00 Weight (Pounds): 130 HEENT: anicteric Respiratory/Chest: normal breath sounds Cardiovascular: regular rhythm Abdomen: no organomegaly Neurologic/Psychiatric: alert Microbiology Date/Time Source Procedure Growth Status 10/08/16 02:00 Sputum Gram Stain - Final Complete 10/08/16 02:00 Sputum Culture - Final Kassandra Albicans Usual Upper Respiratory Jeanette Complete 10/08/16 22:45 Stool Clostridium difficile Toxin Assay - Final Complete Laboratory Tests Test 10/10/16 06:15 10/10/16 08:35 White Blood Count 10.6 K/UL (4.8-10.8) Red Blood Count 3.38 M/UL (4.70-6.10) L Hemoglobin 11.8 G/DL (14.2-18.0) L Hematocrit 33.1 % (42.0-52.0) L Mean Corpuscular Volume 98 FL (80-99) Mean Corpuscular Hemoglobin 34.8 PG (27.0-31.0) H Mean Corpuscular Hemoglobin Concent 35.5 G/DL (32.0-36.0) Red Cell Distribution Width 10.7 % (11.6-14.8) L Platelet Count 161 K/UL (150-450) Mean Platelet Volume 8.0 FL (6.5-10.1) Neutrophils (%) (Auto) 81.1 % (45.0-75.0) H Lymphocytes (%) (Auto) 9.4 % (20.0-45.0) L Monocytes (%) (Auto) 8.8 % (1.0-10.0) Eosinophils (%) (Auto) 0.1 % (0.0-3.0) Basophils (%) (Auto) 0.6 % (0.0-2.0) Sodium Level 137 mEQ/L (135-145) Potassium Level 2.4 mEQ/L (3.4-4.9) *L Chloride Level 96 mEQ/L (98-107) L Carbon Dioxide Level 25 mEQ/L (20-30) Anion Gap 16 (5-15) H Blood Urea Nitrogen 5 mg/dL (7-23) L Creatinine 0.5 mg/dL (0.7-1.2) L Estimat Glomerular Filtration Rate > 60 mL/min (>60) Glucose Level 72 mg/dL (74-106) L Uric Acid 1.6 mg/dL (3.0-7.5) L Calcium Level 8.5 mg/dL (8.6-10.2) L Phosphorus Level 2.8 mg/dL (2.5-4.8) Magnesium Level 1.7 mg/dL (1.7-2.5) Total Bilirubin 0.3 mg/dL (0.0-1.2) Gamma Glutamyl Transpeptidase 36 U/L (8-61) Aspartate Amino Transf (AST/SGOT) 15 U/L (5-40) Alanine Aminotransferase (ALT/SGPT) 17 U/L (3-41) Alkaline Phosphatase 89 U/L (40-129) Total Creatine Kinase 16 U/L (38-174) L C-Reactive Protein, Quantitative 10.5 mg/dL (< 0.5) H Pro-B-Type Natriuretic Peptide 163 pg/mL (0-125) H Total Protein 5.9 g/dL (6.6-8.7) L Albumin 2.9 g/dL (3.5-5.2) L Globulin 3.0 g/dL Albumin/Globulin Ratio 0.9 (1.0-2.7) L Triglycerides Level 68 mg/dL (< 150) Cholesterol Level 75 mg/dL (< 200) LDL Cholesterol 29 mg/dL (60-99) L HDL Cholesterol 32 mg/dL (> 60) Cholesterol/HDL Ratio 2.3 (3.3-4.4) L Lipase 29 U/L (< 60) Vitamin B12 Level > 2000 pg/mL (211-946) H Folate Pending Thyroid Stimulating Hormone (TSH) 1.250 uIU/mL (0.300-4.500) Urine Random Sodium 25 mmol/L Current Medications Medications (Trade) Dose Ordered Sig/Suzette Route PRN Reason Start Time Stop Time Status Last Admin Dose Admin Acetaminophen (Tylenol) 650 mg Q4H PRN ORAL fever 10/07/16 19:45 11/06/16 19:44 10/08/16 14:29 Acetaminophen/ Hydrocodone Bitart ([place] 5/325) 1 tab Q4H PRN ORAL Moderate Pain (Pain Scale 4-6) 10/08/16 18:15 10/15/16 18:14 10/09/16 21:00 Albuterol/ Ipratropium 3 ml 3 ml Q4H PRN HHN Shortness of Breath 10/07/16 19:45 10/12/16 19:44 Azithromycin (Zithromax) 250 mg DAILY ORAL 10/09/16 09:00 10/16/16 08:59 10/09/16 08:21 Cefepime HCl/ Dextrose (Maxipime/D5W) 55 ml @ 110 mls/hr EVERY 12 HOURS IV 10/07/16 21:00 10/14/16 20:59 10/10/16 08:22 Dextrose (Dextrose 50%) STAT PRN IV Hypoglycemia 10/07/16 19:45 11/06/16 19:44 Heparin Sodium (Porcine) (Heparin 5000 units/ml) 5,000 units EVERY 12 HOURS SUBQ 10/07/16 21:00 11/06/16 20:59 10/10/16 09:00 Insulin Aspart (NovoLOG) BEFORE MEALS AND HS SUBQ 10/07/16 21:00 11/06/16 20:59 10/09/16 21:02 Insulin Aspart (NovoLOG) 10 units NOVOTIAC SUBQ 10/10/16 06:30 11/09/16 06:29 Insulin Detemir 30 units 30 units BEDTIME SUBQ 10/10/16 21:00 11/09/16 20:59 Nitroglycerin (Ntg) 0.4 mg Q5MIN X 3 DOSES PRN SL Prn Chest Pain 10/07/16 19:45 11/06/16 19:44 Ondansetron HCl (Zofran) 4 mg Q6H PRN IVP Nausea & Vomiting 10/07/16 19:45 11/06/16 19:44 10/09/16 11:57 Pantoprazole (Protonix) 40 mg EVERY 12 HOURS ORAL 10/09/16 21:00 11/08/16 20:59 10/09/16 21:00 Polyethylene Glycol (Miralax) 17 gm DAILYPRN PRN ORAL Constipation 10/07/16 19:45 11/06/16 19:44 Potassium Chloride (K-Dur) 40 meq TWICE A DAY ORAL 10/10/16 10:00 11/09/16 09:59 UNV Potassium Chloride (KCl 10mEq/100ml Premix) 100 ml @ 100 mls/hr Q1H IVPB 10/10/16 09:30 10/10/16 15:29 10/10/16 09:30 Promethazine HCl/ Codeine (Phenergan with Codeine) 5 ml Q4H PRN ORAL For Cough 10/09/16 16:30 11/08/16 16:29 10/09/16 22:28 Temazepam (Restoril) 15 mg HSPRN PRN ORAL Insomnia 10/07/16 19:45 10/14/16 19:44 EDEN RUIZ M.D. Oct 10, 2016 11:39
[2016-10-10 12:00] VITALS: BP 123/73
--- NOTE | 2016-10-10 12:15 | Consultation ---
Consult Note Consult Note Patient seen and examined today in the morning, full consultation note to follow Clinical findings and weight loss concerning for underlying malignancy At this time, patient to have CT CAP completed with IV contrast, have discussed with RN Thank you for this kind referral, MD Sandoval Kaufman Roman L. Oct 10, 2016 12:15
[2016-10-10] MEDS: metroNIDAZOLE 500mg tab ORAL SCH ×2 (12:53→21:05)
[2016-10-10] MEDS: Azithromycin 250mg tab ORAL SCH (12:54)
--- NOTE | 2016-10-10 13:22 | Pulmonology Progress Note ---
Assessment/Plan Problems: (1) Pneumonia (2) COPD (chronic obstructive pulmonary disease) (3) Cachectic (4) Lung mass (5) Dehydration Assessment/Plan continue antibiotics respiratory treatment malignancy work up K supplement ct guided biopsy of RLL mass Subjective ROS Limited/Unobtainable: No Constitutional: Reports: no symptoms HEENT: Repors: no symptoms Respiratory: Reports: no symptoms Cardiovascular: Reports: no symptoms Allergies: Coded Allergies: No Known Allergies (Unverified , 12/17/15) Objective Last 24 Hour Vital Signs Date Time Temp Pulse Resp B/P Pulse Ox O2 Delivery O2 Flow Rate FiO2 10/10/16 12:00 97.7 66 20 123/73 99 Room Air 10/10/16 11:11 Room Air 10/10/16 11:11 Room Air 10/10/16 08:00 97.7 70 20 108/67 98 Room Air 10/10/16 07:43 Room Air 10/10/16 07:42 Room Air 10/10/16 07:40 92 18 Room Air 10/10/16 04:00 97.7 71 18 93/57 94 Room Air 10/10/16 03:37 Room Air 21 10/10/16 03:37 Room Air 10/10/16 00:00 97.9 63 18 90/59 98 Room Air 10/09/16 23:20 Room Air 21 10/09/16 23:20 Room Air 10/09/16 21:59 98.6 10/09/16 20:00 98.6 83 18 91/66 99 Room Air 10/09/16 19:07 82 18 96 Room Air 21 10/09/16 19:07 82 18 96 Room Air 21 10/09/16 19:06 86 20 Room Air 21 10/09/16 16:02 97.9 80 19 99/70 100 Room Air 10/09/16 15:00 Room Air 21 10/09/16 15:00 Room Air Intake and Output 10/09/16 10/10/16 19:00 07:00 Intake Total 870.0 ml 677.5 ml Balance 870.0 ml 677.5 ml Intake Oral 720 ml 480 ml IV Total 150.0 ml 197.5 ml # Voids 3 4 # Bowel Movements 4 3 Objective sightly better, CT chest done K supplement d/w radiologist Dr. Mauricio will do a ct guided biopsy of RLL mass HEENT: normocephalic, atraumatic Respiratory/Chest: chest wall non-tender, lungs clear Microbiology Date/Time Source Procedure Growth Status 10/10/16 11:35 Nasopharynx Influenza Types A,B Antigen (NEGRO) - Final Complete 10/08/16 02:00 Sputum Gram Stain - Final Complete 10/08/16 02:00 Sputum Culture - Final Kassandra Albicans Usual Upper Respiratory Jeanette Complete 10/08/16 22:45 Stool Clostridium difficile Toxin Assay - Final Complete Laboratory Tests 10/10/16 06:15: White Blood Count 10.6, Red Blood Count 3.38L, Hemoglobin 11.8L, Hematocrit 33.1L, Mean Corpuscular Volume 98, Mean Corpuscular Hemoglobin 34.8H, Mean Corpuscular Hemoglobin Concent 35.5, Red Cell Distribution Width 10.7L, Platelet Count 161, Mean Platelet Volume 8.0, Neutrophils (%) (Auto) 81.1H, Lymphocytes (%) (Auto) 9.4L, Monocytes (%) (Auto) 8.8, Eosinophils (%) (Auto) 0.1, Basophils (%) (Auto) 0.6, Sodium Level 137, Potassium Level 2.4*L, Chloride Level 96L, Carbon Dioxide Level 25, Anion Gap 16H, Blood Urea Nitrogen 5L, Creatinine 0.5L, Estimat Glomerular Filtration Rate > 60, Glucose Level 72L , Uric Acid 1.6L, Calcium Level 8.5L, Phosphorus Level 2.8, Magnesium Level 1.7 , Total Bilirubin 0.3, Gamma Glutamyl Transpeptidase 36, Aspartate Amino Transf (AST/SGOT) 15, Alanine Aminotransferase (ALT/SGPT) 17, Alkaline Phosphatase 89, Total Creatine Kinase 16L, C-Reactive Protein, Quantitative 10.5H, Pro-B-Type Natriuretic Peptide 163H, Total Protein 5.9L, Albumin 2.9L, Globulin 3.0, Albumin/Globulin Ratio 0.9L, Triglycerides Level 68, Cholesterol Level 75, LDL Cholesterol 29L, HDL Cholesterol 32, Cholesterol/HDL Ratio 2.3L, Lipase 29, Vitamin B12 Level > 2000H, Folate [Pending], Thyroid Stimulating Hormone (TSH) 1.250 10/10/16 08:35: Urine Random Sodium 25 Current Medications Medications (Trade) Dose Ordered Sig/Suzette Route PRN Reason Start Time Stop Time Status Last Admin Dose Admin Acetaminophen (Tylenol) 650 mg Q4H PRN ORAL fever 10/07/16 19:45 11/06/16 19:44 10/08/16 14:29 Acetaminophen/ Hydrocodone Bitart ([place] 5/325) 1 tab Q4H PRN ORAL Moderate Pain (Pain Scale 4-6) 10/08/16 18:15 10/15/16 18:14 10/09/16 21:00 Albuterol/ Ipratropium 3 ml 3 ml Q4H PRN HHN Shortness of Breath 10/07/16 19:45 10/12/16 19:44 Azithromycin (Zithromax) 250 mg DAILY ORAL 10/09/16 09:00 10/16/16 08:59 10/10/16 12:54 Cefepime HCl/ Dextrose (Maxipime/D5W) 55 ml @ 110 mls/hr EVERY 12 HOURS IV 10/07/16 21:00 10/14/16 20:59 10/10/16 08:22 Dextrose (Dextrose 50%) STAT PRN IV Hypoglycemia 10/07/16 19:45 11/06/16 19:44 Heparin Sodium (Porcine) (Heparin 5000 units/ml) 5,000 units EVERY 12 HOURS SUBQ 10/07/16 21:00 11/06/16 20:59 10/10/16 09:00 Insulin Aspart (NovoLOG) BEFORE MEALS AND HS SUBQ 10/07/16 21:00 11/06/16 20:59 10/09/16 21:02 Insulin Aspart (NovoLOG) 10 units NOVOTIAC SUBQ 10/10/16 06:30 11/09/16 06:29 Insulin Detemir 30 units 30 units BEDTIME SUBQ 10/10/16 21:00 11/09/16 20:59 Metronidazole (Flagyl) 500 mg Q8HR ORAL 10/10/16 14:00 10/17/16 13:59 10/10/16 12:53 Nitroglycerin (Ntg) 0.4 mg Q5MIN X 3 DOSES PRN SL Prn Chest Pain 10/07/16 19:45 11/06/16 19:44 Ondansetron HCl (Zofran) 4 mg Q6H PRN IVP Nausea & Vomiting 10/07/16 19:45 11/06/16 19:44 10/09/16 11:57 Pantoprazole (Protonix) 40 mg EVERY 12 HOURS ORAL 10/09/16 21:00 11/08/16 20:59 10/10/16 12:53 Polyethylene Glycol (Miralax) 17 gm DAILYPRN PRN ORAL Constipation 10/07/16 19:45 11/06/16 19:44 Potassium Chloride (K-Dur) 40 meq TWICE A DAY ORAL 10/10/16 10:00 11/09/16 09:59 UNV Potassium Chloride (KCl 10mEq/100ml Premix) 100 ml @ 100 mls/hr Q1H IVPB 10/10/16 09:30 10/10/16 15:29 10/10/16 12:53 Promethazine HCl/ Codeine (Phenergan with Codeine) 5 ml Q4H PRN ORAL For Cough 10/09/16 16:30 11/08/16 16:29 10/09/16 22:28 Temazepam (Restoril) 15 mg HSPRN PRN ORAL Insomnia 10/07/16 19:45 10/14/16 19:44 GISSELLE DALY Oct 10, 2016 13:22
[2016-10-10 16:00] VITALS: BP 95/65
--- NOTE | 2016-10-10 16:46 | Diagnostic Imaging Report ---
Indication: Reason rapid 25 pound weight loss, nausea, vomiting, cachexia Technique: Patient ingested oral contrast. IV administration nonionic contrast. Spiral acquisitions obtained through the chest, abdomen, and pelvis. Multiplanar reconstructions were generated. Total dose length product 1112 mGycm. CTDIvol(s) 8, 48, 10, 11 mGy. Radiation dose was minimized using automated exposure control Comparison: 12/17/[address] No prior comparison chest CTs Findings: There is diffuse mild edema of the subcutaneous, mediastinal, and intra-abdominal and pelvic fat. Chest: Multiple patchy and reticular opacities are seen scattered throughout both lungs unclear as to whether infiltrative or masslike.. The largest and densest of these is in the posterior inferior right lower lobe, measures 2.8 cm transverse by 2.9 cm AP. Other areas of opacity are seen within the right middle lobe, left upper and lower lobes, predominantly inferiorly. No congestion is demonstrated. There is a small subpleural bleb in the right upper lobe. No effusions There is an enlarged subcarinal node which measures approximately 2.9 cm long axis dimension. Prominent precarinal node measures 2 cm long axis dimension. There is also left and questionably prevascular space lymphadenopathy. The included thyroid is unremarkable. No axillary or chest wall mass or adenopathy is demonstrated. The esophagus demonstrates some retained contrast, is otherwise unremarkable.. Abdomen pelvis: The liver is mildly enlarged. There is some focal fat in the usual location adjacent to the fissure for the ligamentum teres. No other focal abnormalities demonstrated. The gallbladder and bile ducts are unremarkable. The pancreas is diffusely atrophic, with ectasia of the pancreatic duct and extensive calcification. No definite pancreatic mass is demonstrated. The, adrenals, kidneys appear unremarkable. No retroperitoneal or mesenteric mass or adenopathy. No pelvic mass or adenopathy. There are colonic diverticula, predominantly in the right side of the colon. The appendix is normal. No small bowel distention. No free or loculated intraperitoneal air or fluid. The stomach and duodenum are unremarkable. The bones are unremarkable except for degenerative spondylosis changes and mild lumbar scoliotic deformity. When compared to the prior study, the pancreatic atrophy and calcification, pancreatic ductal dilatation is unchanged. The visualized pulmonary parenchyma on the prior study again the above-described findings. Diverticulosis was evident previously. Impression: Bilateral patchy and reticular borderline masslike opacities. While possibly on the basis of infiltrates, presence of mediastinal lymphadenopathy raises concern that one or more of these represents in neoplastic process. If so, multifocal bronchoalveolar carcinoma can certainly have this appearance. Generalized mild soft tissue edema, nonspecific as regards etiology Mild hepatomegaly Pancreatic atrophy with calcification and ectasia of the pancreatic duct, also previously described Colonic diverticulosis number scoliosis and degenerative spondylosis Findings previously discussed by phone with Dr. Stover The CT scanner at [facility] is accredited by the [place] [employer] and the scans are performed using protocols designed to limit radiation exposure to as low as reasonably achievable to attain images of sufficient resolution adequate for diagnostic evaluation.
--- NOTE | 2016-10-10 17:02 | Diagnostic Imaging Report ---
Indication: Abdominal pain, elevated lipase, abnormal renal function tests Technique: [place]-scale and duplex images of the upper abdomen were obtained Comparison: CT scan performed earlier the same day Findings: . Gallbladder is unremarkable, without stones, wall thickening, nor pericholecystic fluid. It is incompletely distended. Sonographic Kenny's sign is negative. Common bile duct measures 3 mm in diameter. No intrahepatic biliary ductal dilatation. Liver demonstrates normal echogenicity, no focal abnormality. It is enlarged but there is no surface nodularity. Portal vein and hepatic veins are patent.. Pancreas is unremarkable. Spleen is unremarkable. Left kidney measures 13.7 cm in length. Right kidney measures 15 cm length. Both kidneys demonstrate normal echogenicity. There is no hydronephrosis. No focal abnormality. . Non-aneurysmal abdominal aorta. Impression: Negative for gallstones or dilated ducts Hepatomegaly
--- NOTE | 2016-10-10 17:57 | Consultation ---
DATE OF CONSULTATION: 10/10/2016 HEMATOLOGY/ONCOLOGY CONSULTATION CONSULTING PHYSICIAN: Sandoval Sweet M.D. REFERRING PHYSICIAN: Pio Stover M.D. REASON FOR CONSULTATION: Evaluation of weight loss, malnourishment. IDENTIFICATION: Dear Dr. Pio Stover, The patient is a pleasant 51-year-old male who is an active smoker at this time presents to [facility] with cough and congestion. He has been complaining of wheezing as well as generalized fatigue, he has been having low-grade fever over the past four to five days. He does not have any diarrhea or subsequent gastrointestinal symptoms, however he does complain of nausea and vomiting. Upon presentation to the ER, he was noted to have an elevated blood sugar as well as pneumonia. ID service was consulted. The patient is currently on antibiotics and currently he is afebrile, initially had leukocytosis. Given the patient's cachexia and history of active smoking use, it was requested the patient be evaluated for systemic malignancy given an elevated CA 99 as well as CEA tumor marker. Ultrasound of the abdomen has been ordered. PAST MEDICAL HISTORY: Chronic pancreatitis, hiatal hernia, BPH, right-sided empyema. PAST SURGICAL HISTORY: VATS on the right side SOCIAL HISTORY: He is an active smoker. No illicit drugs or alcohol use. FAMILY HISTORY: Noncontributory. MEDICATIONS: Cefepime, heparin, DuoNebs. ALLERGIES: No known drug allergies. REVIEW OF SYSTEMS: Constitutional: No fever, chills, or night sweats. Skin: No rash, lumps, or itching. HEENT: No headache, hearing, or vision changes. Breasts: No lumps, pain, or discharge. Pulmonary: No cough, sputum, or shortness of breath. Cardiovascular: No chest pain, tightness, or palpitations. Gastrointestinal: Nausea and vomiting continues to persist. No diarrhea noted. Genitourinary: No dysuria, frequency, or urgency. Musculoskeletal: No joint swelling, muscle pain, or trauma. Neurologic: No dizziness, fainting, or seizures. PHYSICAL EXAMINATION: GENERAL: He is in no distress. VITAL SIGNS: Temperature 98.3 degrees Fahrenheit, pulse 83, respiratory rate of 18, blood pressure 91/66, and pulse oximetry 97% on room air. PULMONARY: Decreased breath sounds. CARDIOVASCULAR: Regular rate. No S3 or S4. ABDOMEN: Soft, nontender, and nondistended. EXTREMITIES: No cyanosis, clubbing, or edema. The patient is generally cachectic. NEUROLOGIC: Nonfocal. Cranial nerves II through XII are intact. LABORATORY DATA: WBC 11, hemoglobin 12.5, hematocrit 37.0, and platelet count 133,000. IMAGING: Reviewed. Chest x-ray on 10/07/2016 shows right basilar pneumonia and CT scan shows chronic calcific pancreatitis. ASSESSMENT: 1. Cachexia, malnourishment, and weight loss. I have reviewed the medical record. The patient lost approximately 25 pounds in just eight months. The patient was recently admitted on December 2015 with 25-pound weight loss, which is concerning for malignancy and/or systemic infection that is currently not been detected at this time with elevated tumor markers. We will obtains ultrasound of the abdomen as well as CAT scan and imaging with contrast. 2. Elevated tumor markers CEA and CA-99. Concerning for potential gastrointestinal source of malignancy, however if not 3. Anemia secondary to chronic disease. 4. Decreased hemoglobin and hematocrit, rule out gastrointestinal bleed. 5. Thrombocytopenia, potentially concerning for infection. 6. Leukocytosis, mild. 7. Pneumonia been treated with antibiotics. 8. Chronic obstructive pulmonary disease. RECOMMENDATIONS: 1. Given elevated CA 99 and CEA, we will obtain ultrasound of the abdomen. 2. Obtain CAT scan of the chest, abdomen, and pelvis given 25-pound weight loss in just eight months, this is a documented weight loss. 3. Gastrointestinal prophylaxis with pantoprazole. 4. Deep vein thrombosis with heparin. 5. Antibiotics as needed. 6. Followup on Endocrinology, Pulmonary, Nephrology recommendations. 7. Blood sugar control. 8. We will evaluate if the patient has any evidence of iron-deficiency anemia. 9. If nothing found on imaging, consider GI followup and evaluation of lower endoscopy. 10. Continue current care and followup closely. 11. Discussed with staff. Thank you Dr. Pio Stover, for this kind referral. Please do not hesitate to contact me at any time. Kee Nick M.D. DR: KAYLEE JOB#: [id number] CC: DARRELL
[2016-10-10] MEDS: Norco 5mg/325mg tab ORAL PRN (19:21)
[2016-10-10] MEDS ORDERED: SODIUM CHLORIDE IV SCH (20:00)
[2016-10-10] MEDS ORDERED: POTASSIUM CHLORIDE IV SCH (20:00)
[2016-10-10 20:23] VITALS: BP 104/66
[2016-10-10] MEDS ORDERED: Levemir Flexpen SUBQ SCH (21:00)
[2016-10-11] VITALS (7 sets, daily range): BP systolic 94–146; BP diastolic 60–85
[2016-10-11] MEDS: metroNIDAZOLE 500mg tab ORAL SCH ×3 (05:44→21:35)
[2016-10-11] MEDS: NovoLOG Insulin Flexpen SUBQ SCH ×7 (06:38→20:45)
[2016-10-11 07:18] LABS: BASOPHILS % (AUTO) 1.3 % (0.0-2.0); EOSINOPHILS % (AUTO) 0.1 % (0.0-3.0); MEAN CORPUSCULAR HEMOGLOBIN 35.3 PG (27.0-31.0); MEAN CORPUSCULAR HGB CONC 34.8 G/DL (32.0-36.0); MEAN CORPUSCULAR VOLUME 101 FL (80-99); MEAN PLATELET VOLUME 8.1 FL (6.5-10.1); MONOCYTES % (AUTO) 13.1 % (1.0-10.0); NEUTROPHILS % (AUTO) 72.6 % (45.0-75.0); PLATELET COUNT 177 K/UL (150-450); RED BLOOD COUNT 3.44 M/UL (4.70-6.10); RED CELL DISTRIBUTION WIDTH 11.3 % (11.6-14.8); WHITE BLOOD COUNT 7.9 K/UL (4.8-10.8)
[2016-10-11 07:33] LABS: ALANINE AMINOTRANSFERASE 18 U/L (3-41); ANION GAP 17 (5-15); ASPARTATE AMINO TRANSFERASE 16 U/L (5-40); CALCIUM 8.5 mg/dL (8.6-10.2); CARBON DIOXIDE 23 mEQ/L (20-30); CHLORIDE 94 mEQ/L (98-107); CREATININE 0.6 mg/dL (0.7-1.2); CRP QUANT 7.7 mg/dL (< 0.5); GLOMERULAR FILTRATION RATE > 60 mL/min (>60); HEMOLYSIS 0; MAGNESIUM 1.8 mg/dL (1.7-2.5); PHOSPHORUS 3.4 mg/dL (2.5-4.8); POTASSIUM 3.1 mEQ/L (3.4-4.9); SODIUM 134 mEQ/L (135-145); TOTAL PROTEIN 5.8 g/dL (6.6-8.7)
[2016-10-11] MEDS: Azithromycin 250mg tab ORAL SCH (08:51)
[2016-10-11] MEDS: Norco 5mg/325mg tab ORAL PRN ×2 (08:51→17:54)
[2016-10-11] MEDS: Cefepime HCl 1 GM in D5W 55 ML IV SCH ×2 (08:52→20:38)
[2016-10-11] MEDS: Heparin 5000 units/ml inj SUBQ SCH ×2 (08:55→20:45)
--- NOTE | 2016-10-11 09:40 | Infectious Diseases Prog Note ---
Assessment/Plan Assessment/Plan ASSESSMENT: 51 y/o male with: // RLL PNA - SCx, : ( Nl Fl and yeast colonizer ) - CXR 10/07: Right basilar pneumonia suspected - h/o right empyema SP VATS // Periodontal disease // Acute leukocytosis - SP // HIV , Flu : Neg // Blood Cx : PSA // Diarrhea // CT: Bilateral patchy and reticular borderline masslike opacities. and mediastinal lymphadenopathy , concern for neoplastic process. // Deep vein thrombosis // CA-19. CEA : elevated // Unintentional weigh loss / cachexia - h/o PPD(-) // Chronic pancreatitis // Tobacco abuse // NKDA // Full Code PLAN: - continue cefepime d# 4 / 10 , azithromycin d# 4 / 5 , Flagyl d# 2 - f/u cultures ( stool , Ur ) - monitor CBC, temperatures - monitor BMP - monitor CXR - 2DEcho Subjective Constitutional: Denies: anorexia, chills, drenching sweats, fatigue, fever, no symptoms, other Allergies: Coded Allergies: No Known Allergies (Unverified , 12/17/15) Subjective no diarrhea Objective Vital Signs Last 24 Hour Vital Signs Date Time Temp Pulse Resp B/P Pulse Ox O2 Delivery O2 Flow Rate FiO2 10/11/16 07:10 84 18 98 Room Air 21 10/11/16 07:05 83 18 98 Room Air 21 10/11/16 07:05 85 18 Room Air 10/11/16 04:00 97.9 64 19 145/85 97 Room Air 10/11/16 03:33 Room Air 10/11/16 03:33 Room Air 10/11/16 00:33 97.9 63 19 96/60 98 Room Air 10/10/16 23:00 Room Air 10/10/16 23:00 Room Air 10/10/16 20:33 Room Air 10/10/16 20:23 97.9 74 18 104/66 93 Room Air 10/10/16 19:20 85 18 Room Air 10/10/16 19:00 Room Air 10/10/16 16:00 97.7 81 18 95/65 100 Room Air 10/10/16 15:01 Room Air 10/10/16 15:01 Room Air 10/10/16 12:00 97.7 66 20 123/73 99 Room Air 10/10/16 11:11 Room Air 10/10/16 11:11 Room Air Height (Feet): 6 Height (Inches): 2.00 Weight (Pounds): 132 HEENT: atraumatic Respiratory/Chest: normal breath sounds Cardiovascular: regular rhythm Abdomen: soft, non tender Microbiology Date/Time Source Procedure Growth Status 10/10/16 11:35 Nasopharynx Influenza Types A,B Antigen (NEGRO) - Final Complete 10/08/16 22:45 Stool Clostridium difficile Toxin Assay - Final Complete Laboratory Tests Test 10/11/16 06:45 White Blood Count 7.9 K/UL (4.8-10.8) Red Blood Count 3.44 M/UL (4.70-6.10) L Hemoglobin 12.1 G/DL (14.2-18.0) L Hematocrit 34.9 % (42.0-52.0) L Mean Corpuscular Volume 101 FL (80-99) H Mean Corpuscular Hemoglobin 35.3 PG (27.0-31.0) H Mean Corpuscular Hemoglobin Concent 34.8 G/DL (32.0-36.0) Red Cell Distribution Width 11.3 % (11.6-14.8) L Platelet Count 177 K/UL (150-450) Mean Platelet Volume 8.1 FL (6.5-10.1) Neutrophils (%) (Auto) 72.6 % (45.0-75.0) Lymphocytes (%) (Auto) 13.0 % (20.0-45.0) L Monocytes (%) (Auto) 13.1 % (1.0-10.0) H Eosinophils (%) (Auto) 0.1 % (0.0-3.0) Basophils (%) (Auto) 1.3 % (0.0-2.0) Sodium Level 134 mEQ/L (135-145) L Potassium Level 3.1 mEQ/L (3.4-4.9) L Chloride Level 94 mEQ/L (98-107) L Carbon Dioxide Level 23 mEQ/L (20-30) Anion Gap 17 (5-15) H Blood Urea Nitrogen 5 mg/dL (7-23) L Creatinine 0.6 mg/dL (0.7-1.2) L Estimat Glomerular Filtration Rate > 60 mL/min (>60) Glucose Level 446 mg/dL (74-106) #H Calcium Level 8.5 mg/dL (8.6-10.2) L Phosphorus Level 3.4 mg/dL (2.5-4.8) Magnesium Level 1.8 mg/dL (1.7-2.5) Total Bilirubin 0.3 mg/dL (0.0-1.2) Gamma Glutamyl Transpeptidase 34 U/L (8-61) Aspartate Amino Transf (AST/SGOT) 16 U/L (5-40) Alanine Aminotransferase (ALT/SGPT) 18 U/L (3-41) Alkaline Phosphatase 103 U/L (40-129) C-Reactive Protein, Quantitative 7.7 mg/dL (< 0.5) H Pro-B-Type Natriuretic Peptide 330 pg/mL (0-125) H Total Protein 5.8 g/dL (6.6-8.7) L Albumin 2.9 g/dL (3.5-5.2) L Globulin 2.9 g/dL Albumin/Globulin Ratio 1.0 (1.0-2.7) Current Medications Medications (Trade) Dose Ordered Sig/Suzette Route PRN Reason Start Time Stop Time Status Last Admin Dose Admin Acetaminophen (Tylenol) 650 mg Q4H PRN ORAL fever 10/07/16 19:45 11/06/16 19:44 10/08/16 14:29 Acetaminophen/ Hydrocodone Bitart ([place] 5/325) 1 tab Q4H PRN ORAL Moderate Pain (Pain Scale 4-6) 10/08/16 18:15 10/15/16 18:14 10/11/16 08:51 Albuterol/ Ipratropium 3 ml 3 ml Q4H PRN HHN Shortness of Breath 10/07/16 19:45 10/12/16 19:44 Azithromycin (Zithromax) 250 mg DAILY ORAL 10/09/16 09:00 10/16/16 08:59 10/11/16 08:51 Cefepime HCl/ Dextrose (Maxipime/D5W) 55 ml @ 110 mls/hr EVERY 12 HOURS IV 10/07/16 21:00 10/14/16 20:59 10/11/16 08:52 Dextrose (Dextrose 50%) STAT PRN IV Hypoglycemia 10/07/16 19:45 11/06/16 19:44 Heparin Sodium (Porcine) (Heparin 5000 units/ml) 5,000 units EVERY 12 HOURS SUBQ 10/07/16 21:00 11/06/16 20:59 10/11/16 08:55 Insulin Aspart (NovoLOG) BEFORE MEALS AND HS SUBQ 10/07/16 21:00 11/06/16 20:59 10/11/16 06:38 Insulin Aspart (NovoLOG) 10 units NOVOTIAC SUBQ 10/10/16 06:30 11/09/16 06:29 10/11/16 06:38 Insulin Detemir (Levemir) 30 units BEDTIME SUBQ 10/10/16 21:00 11/09/16 20:59 10/10/16 20:35 Metronidazole (Flagyl) 500 mg Q8HR ORAL 10/10/16 14:00 10/17/16 13:59 10/11/16 05:44 Nitroglycerin (Ntg) 0.4 mg Q5MIN X 3 DOSES PRN SL Prn Chest Pain 10/07/16 19:45 11/06/16 19:44 Ondansetron HCl (Zofran) 4 mg Q6H PRN IVP Nausea & Vomiting 10/07/16 19:45 11/06/16 19:44 10/09/16 11:57 Pantoprazole (Protonix) 40 mg EVERY 12 HOURS ORAL 10/09/16 21:00 11/08/16 20:59 10/11/16 08:51 Polyethylene Glycol (Miralax) 17 gm DAILYPRN PRN ORAL Constipation 10/07/16 19:45 11/06/16 19:44 Potassium Chloride (K-Dur) 40 meq Q12HR@0600,1800 ORAL 10/11/16 06:00 11/10/16 05:59 10/11/16 05:44 Promethazine HCl/ Codeine (Phenergan with Codeine) 5 ml Q4H PRN ORAL For Cough 10/09/16 16:30 11/08/16 16:29 10/09/16 22:28 Temazepam (Restoril) 15 mg HSPRN PRN ORAL Insomnia 10/07/16 19:45 10/14/16 19:44 EDEN RUIZ M.D. Oct 11, 2016 09:40
--- NOTE | 2016-10-11 12:47 | Pulmonology Progress Note ---
Assessment/Plan Problems: (1) Pneumonia (2) COPD (chronic obstructive pulmonary disease) (3) Cachectic (4) Lung mass (5) Dehydration Assessment/Plan continue antibiotics respiratory treatment malignancy work up K supplement ct guided biopsy of RLL mass d/w Radiology about biopsy Subjective ROS Limited/Unobtainable: No Constitutional: Reports: no symptoms HEENT: Repors: no symptoms Allergies: Coded Allergies: No Known Allergies (Unverified , 12/17/15) Objective Last 24 Hour Vital Signs Date Time Temp Pulse Resp B/P Pulse Ox O2 Delivery O2 Flow Rate FiO2 10/11/16 11:10 65 18 95 Room Air 21 10/11/16 11:10 67 18 98 Room Air 10/11/16 09:50 97.9 10/11/16 08:00 97.6 68 20 119/71 97 Room Air 10/11/16 07:10 84 18 98 Room Air 10/11/16 07:05 83 18 98 Room Air 10/11/16 07:05 85 18 Room Air 10/11/16 04:00 97.9 64 19 145/85 97 Room Air 10/11/16 03:33 Room Air 10/11/16 03:33 Room Air 10/11/16 00:33 97.9 63 19 96/60 98 Room Air 10/10/16 23:00 Room Air 10/10/16 23:00 Room Air 10/10/16 20:33 Room Air 10/10/16 20:23 97.9 74 18 104/66 93 Room Air 10/10/16 19:20 85 18 Room Air 10/10/16 19:00 Room Air 10/10/16 16:00 97.7 81 18 95/65 100 Room Air 10/10/16 15:01 Room Air 10/10/16 15:01 Room Air Intake and Output 10/10/16 10/11/16 19:00 07:00 Intake Total 915 ml 595 ml Output Total 550 ml 500 ml Balance 365 ml 95 ml Intake Oral 660 ml 240 ml IV Total 255 ml 355 ml Output Urine Total 550 ml 500 ml # Voids 4 3 # Bowel Movements 8 1 Objective sightly better, CT chest done K supplement d/w radiologist Dr. Mauricio will do a ct guided biopsy of RLL mass HEENT: normocephalic Respiratory/Chest: chest wall non-tender, normal breath sounds Cardiovascular: normal peripheral pulses, normal rate Abdomen: normal bowel sounds, soft, non tender Genitourinary: normal external genitalia Extremities: no cyanosis Neurologic/Psychiatric: hand bookbinder II-XII grossly normal Microbiology Date/Time Source Procedure Growth Status 10/10/16 11:35 Nasopharynx Influenza Types A,B Antigen (NEGRO) - Final Complete 10/08/16 22:45 Stool Clostridium difficile Toxin Assay - Final Complete Laboratory Tests 10/11/16 06:45: White Blood Count 7.9, Red Blood Count 3.44L, Hemoglobin 12.1L, Hematocrit 34.9L , Mean Corpuscular Volume 101H, Mean Corpuscular Hemoglobin 35.3H, Mean Corpuscular Hemoglobin Concent 34.8, Red Cell Distribution Width 11.3L, Platelet Count 177, Mean Platelet Volume 8.1, Neutrophils (%) (Auto) 72.6, Lymphocytes (%) (Auto) 13.0L, Monocytes (%) (Auto) 13.1H, Eosinophils (%) (Auto ) 0.1, Basophils (%) (Auto) 1.3, Sodium Level 134L, Potassium Level 3.1L, Chloride Level 94L, Carbon Dioxide Level 23, Anion Gap 17H, Blood Urea Nitrogen 5L, Creatinine 0.6L, Estimat Glomerular Filtration Rate > 60, Glucose Level 446# H, Calcium Level 8.5L, Phosphorus Level 3.4, Magnesium Level 1.8, Total Bilirubin 0.3, Gamma Glutamyl Transpeptidase 34, Aspartate Amino Transf (AST/ SGOT) 16, Alanine Aminotransferase (ALT/SGPT) 18, Alkaline Phosphatase 103, C- Reactive Protein, Quantitative 7.7H, Pro-B-Type Natriuretic Peptide 330H, Total Protein 5.8L, Albumin 2.9L, Globulin 2.9, Albumin/Globulin Ratio 1.0 Current Medications Medications (Trade) Dose Ordered Sig/Suzette Route PRN Reason Start Time Stop Time Status Last Admin Dose Admin Acetaminophen (Tylenol) 650 mg Q4H PRN ORAL fever 10/07/16 19:45 11/06/16 19:44 10/08/16 14:29 Acetaminophen/ Hydrocodone Bitart ([place] 5/325) 1 tab Q4H PRN ORAL Moderate Pain (Pain Scale 4-6) 10/08/16 18:15 10/15/16 18:14 10/11/16 08:51 Albuterol/ Ipratropium 3 ml 3 ml Q4H PRN HHN Shortness of Breath 10/07/16 19:45 10/12/16 19:44 Azithromycin (Zithromax) 250 mg DAILY ORAL 10/09/16 09:00 10/16/16 08:59 10/11/16 08:51 Cefepime HCl/ Dextrose (Maxipime/D5W) 55 ml @ 110 mls/hr EVERY 12 HOURS IV 10/07/16 21:00 10/14/16 20:59 10/11/16 08:52 Dextrose (Dextrose 50%) STAT PRN IV Hypoglycemia 10/07/16 19:45 11/06/16 19:44 Heparin Sodium (Porcine) (Heparin 5000 units/ml) 5,000 units EVERY 12 HOURS SUBQ 10/07/16 21:00 11/06/16 20:59 10/11/16 08:55 Insulin Aspart (NovoLOG) BEFORE MEALS AND HS SUBQ 10/07/16 21:00 11/06/16 20:59 10/11/16 11:30 Insulin Aspart (NovoLOG) 10 units NOVOTIAC SUBQ 10/10/16 06:30 11/09/16 06:29 10/11/16 11:50 Insulin Detemir (Levemir) 30 units BEDTIME SUBQ 10/10/16 21:00 11/09/16 20:59 10/10/16 20:35 Metronidazole (Flagyl) 500 mg Q8HR ORAL 10/10/16 14:00 10/17/16 13:59 10/11/16 12:21 Nitroglycerin (Ntg) 0.4 mg Q5MIN X 3 DOSES PRN SL Prn Chest Pain 10/07/16 19:45 11/06/16 19:44 Ondansetron HCl (Zofran) 4 mg Q6H PRN IVP Nausea & Vomiting 10/07/16 19:45 11/06/16 19:44 10/09/16 11:57 Pantoprazole (Protonix) 40 mg EVERY 12 HOURS ORAL 10/09/16 21:00 11/08/16 20:59 10/11/16 08:51 Polyethylene Glycol (Miralax) 17 gm DAILYPRN PRN ORAL Constipation 10/07/16 19:45 11/06/16 19:44 Potassium Chloride (K-Dur) 40 meq Q12HR@0600,1800 ORAL 10/11/16 06:00 11/10/16 05:59 10/11/16 05:44 Promethazine HCl/ Codeine (Phenergan with Codeine) 5 ml Q4H PRN ORAL For Cough 10/09/16 16:30 11/08/16 16:29 10/09/16 22:28 Temazepam (Restoril) 15 mg HSPRN PRN ORAL Insomnia 10/07/16 19:45 10/14/16 19:44 GISSELLE DALY Oct 11, 2016 12:47
--- NOTE | 2016-10-11 13:09 | Cardiology Report ---
APPROVED REPORT EXAM: Two-dimensional and M-mode echocardiogram with Doppler and color Doppler. INDICATION Endocarditis M-Mode DIMENSIONS IVSd1.0 (0.7-1.1cm)Left Atrium (MM)3.4 (1.6-4.0cm) LVDd3.4 (3.5-5.6cm)Aortic Root3.5 (2.0-3.7cm) PWd.6 (0.7-1.1cm)Aortic Cusp Exc.2.3 (1.5-2.0cm) LVDs2.7 (2.5-4.0cm) PWs2.0 cm Normal left ventricular chamber size, systolic function and wall motion. Left ventricular ejection fraction estimated to be 50-55%. No evidence of ventricular hypertrophy. No evidence of pericardial fat or effusion. All other cardiac chamber sizes are within normal limits. Mild focal aortic valve sclerosis with adequate cusp excursion. Mildly thickened mitral valve leaflets with normal excursion. Mild mitral annulus and aortic root calcification. Pulmonic valve not well visualized. Normal tricuspid valve structure. IVC dilated at 1.9cm with physiologic collapse. A color flow and spectral Doppler study was performed and revealed: No aortic regurgitation. Trace mitral regurgitation. Mitral inflow indicate normal left ventricular diastolic function. Trace tricuspid regurgitation. Tricuspid systolic velocities suggests peak right ventricular systolic pressure of 20 mmHg. No pulmonic regurgitation present.
--- NOTE | 2016-10-11 13:46 | General Progress Note ---
Assessment/Plan Status: stable Assessment/Plan status; Proteinuria- HypoNatremia- HypoKalemia- HypoPhosphatemia HyperGlycemia Elevated Cancer Markers ( CEA and CA19-9) Pneumonia COPD Cachexia Plan: K and Na and Phos replacement BS control Monitor renal parameters- Urine studies- GI FU per order Subjective ROS Limited/Unobtainable: No Constitutional: Reports: malaise Allergies: Coded Allergies: No Known Allergies (Unverified , 12/17/15) Objective Last 24 Hour Vital Signs Date Time Temp Pulse Resp B/P Pulse Ox O2 Delivery O2 Flow Rate FiO2 10/11/16 11:10 65 18 95 Room Air 21 10/11/16 11:10 67 18 98 Room Air 10/11/16 09:50 97.9 10/11/16 08:00 97.6 68 20 119/71 97 Room Air 10/11/16 07:10 84 18 98 Room Air 10/11/16 07:05 83 18 98 Room Air 10/11/16 07:05 85 18 Room Air 10/11/16 04:00 97.9 64 19 145/85 97 Room Air 10/11/16 03:33 Room Air 10/11/16 03:33 Room Air 10/11/16 00:33 97.9 63 19 96/60 98 Room Air 10/10/16 23:00 Room Air 10/10/16 23:00 Room Air 10/10/16 20:33 Room Air 10/10/16 20:23 97.9 74 18 104/66 93 Room Air 10/10/16 19:20 85 18 Room Air 10/10/16 19:00 Room Air 10/10/16 16:00 97.7 81 18 95/65 100 Room Air 10/10/16 15:01 Room Air 10/10/16 15:01 Room Air Intake and Output 10/10/16 10/11/16 19:00 07:00 Intake Total 915 ml 595 ml Output Total 550 ml 500 ml Balance 365 ml 95 ml Intake Oral 660 ml 240 ml IV Total 255 ml 355 ml Output Urine Total 550 ml 500 ml # Voids 4 3 # Bowel Movements 8 1 Laboratory Tests 10/11/16 06:45: White Blood Count 7.9, Red Blood Count 3.44L, Hemoglobin 12.1L, Hematocrit 34.9L , Mean Corpuscular Volume 101H, Mean Corpuscular Hemoglobin 35.3H, Mean Corpuscular Hemoglobin Concent 34.8, Red Cell Distribution Width 11.3L, Platelet Count 177, Mean Platelet Volume 8.1, Neutrophils (%) (Auto) 72.6, Lymphocytes (%) (Auto) 13.0L, Monocytes (%) (Auto) 13.1H, Eosinophils (%) (Auto ) 0.1, Basophils (%) (Auto) 1.3, Sodium Level 134L, Potassium Level 3.1L, Chloride Level 94L, Carbon Dioxide Level 23, Anion Gap 17H, Blood Urea Nitrogen 5L, Creatinine 0.6L, Estimat Glomerular Filtration Rate > 60, Glucose Level 446# H, Calcium Level 8.5L, Phosphorus Level 3.4, Magnesium Level 1.8, Total Bilirubin 0.3, Gamma Glutamyl Transpeptidase 34, Aspartate Amino Transf (AST/ SGOT) 16, Alanine Aminotransferase (ALT/SGPT) 18, Alkaline Phosphatase 103, C- Reactive Protein, Quantitative 7.7H, Pro-B-Type Natriuretic Peptide 330H, Total Protein 5.8L, Albumin 2.9L, Globulin 2.9, Albumin/Globulin Ratio 1.0 Height (Feet): 6 Height (Inches): 2.00 Weight (Pounds): 132 General Appearance: no apparent distress Objective other PE not changed EMELINA STOVER Oct 11, 2016 13:46
[2016-10-11 13:59] LABS: PROTHROMBIN TIME 10.3 SEC (9.30-11.50)
--- NOTE | 2016-10-11 16:10 | General Progress Note ---
Assessment/Plan Status Narrative ASSESSMENT: 1. Bilateral pulmonary masses - concerning for malignancy, pending biopsy 2. Elevated tumor markers CEA and CA-99. Likely related to lung process 3. Anemia secondary to chronic disease. 4. Cachexia, malnourishment, and weight loss. 5. Thrombocytopenia, potentially concerning for infection. 6. Leukocytosis, mild. 7. Pneumonia been treated with abx 8. COPD RECOMMENDATIONS: 1. Pending biopsy of lung 2. CAT scan info reviewed 3. GI ppx with pantoprazole. 4. Deep vein thrombosis with heparin. 5. Antibiotics as needed. 6. Followup on Endocrinology, Pulmonary, Nephrology recs 7. Blood sugar control. 8. Ferritin and iron panel pending 9. Staff Thank you, Kee Nick MD Subjective Constitutional: Reports: no symptoms HEENT: Reports: no symptoms Cardiovascular: Reports: no symptoms Respiratory: Reports: no symptoms Gastrointestinal/Abdominal: Reports: poor appetite Genitourinary: Reports: no symptoms Neurologic/Psychiatric: Reports: no symptoms Endocrine: Reports: no symptoms Hematologic/Lymphatic: Reports: anemia Allergies: Coded Allergies: No Known Allergies (Unverified , 12/17/15) Subjective stable, no events overnight, no fevers or chills noted Objective Last 24 Hour Vital Signs Date Time Temp Pulse Resp B/P Pulse Ox O2 Delivery O2 Flow Rate FiO2 10/11/16 15:20 64 18 98 Room Air 10/11/16 15:20 66 18 96 Room Air 10/11/16 12:00 97.8 86 20 146/77 94 Room Air 10/11/16 11:10 65 18 95 Room Air 10/11/16 11:10 67 18 98 Room Air 10/11/16 09:50 97.9 10/11/16 08:00 97.6 68 20 119/71 97 Room Air 10/11/16 07:10 84 18 98 Room Air 10/11/16 07:05 83 18 98 Room Air 10/11/16 07:05 85 18 Room Air 10/11/16 04:00 97.9 64 19 145/85 97 Room Air 10/11/16 03:33 Room Air 10/11/16 03:33 Room Air 10/11/16 00:33 97.9 63 19 96/60 98 Room Air 10/10/16 23:00 Room Air 10/10/16 23:00 Room Air 10/10/16 20:33 Room Air 10/10/16 20:23 97.9 74 18 104/66 93 Room Air 10/10/16 19:20 85 18 Room Air 10/10/16 19:00 Room Air Intake and Output 10/10/16 10/11/16 19:00 07:00 Intake Total 915 ml 595 ml Output Total 550 ml 500 ml Balance 365 ml 95 ml Intake Oral 660 ml 240 ml IV Total 255 ml 355 ml Output Urine Total 550 ml 500 ml # Voids 4 3 # Bowel Movements 8 1 Laboratory Tests 10/11/16 06:45: White Blood Count 7.9, Red Blood Count 3.44L, Hemoglobin 12.1L, Hematocrit 34.9L , Mean Corpuscular Volume 101H, Mean Corpuscular Hemoglobin 35.3H, Mean Corpuscular Hemoglobin Concent 34.8, Red Cell Distribution Width 11.3L, Platelet Count 177, Mean Platelet Volume 8.1, Neutrophils (%) (Auto) 72.6, Lymphocytes (%) (Auto) 13.0L, Monocytes (%) (Auto) 13.1H, Eosinophils (%) (Auto ) 0.1, Basophils (%) (Auto) 1.3, Sodium Level 134L, Potassium Level 3.1L, Chloride Level 94L, Carbon Dioxide Level 23, Anion Gap 17H, Blood Urea Nitrogen 5L, Creatinine 0.6L, Estimat Glomerular Filtration Rate > 60, Glucose Level 446# H, Calcium Level 8.5L, Phosphorus Level 3.4, Magnesium Level 1.8, Total Bilirubin 0.3, Gamma Glutamyl Transpeptidase 34, Aspartate Amino Transf (AST/ SGOT) 16, Alanine Aminotransferase (ALT/SGPT) 18, Alkaline Phosphatase 103, C- Reactive Protein, Quantitative 7.7H, Pro-B-Type Natriuretic Peptide 330H, Total Protein 5.8L, Albumin 2.9L, Globulin 2.9, Albumin/Globulin Ratio 1.0 10/11/16 13:30: Prothrombin Time 10.3, Prothromb Time International Ratio 1.0 Height (Feet): 6 Height (Inches): 2.00 Weight (Pounds): 132 General Appearance: no apparent distress EENT: TMs normal Neck: supple Cardiovascular: regular rhythm Respiratory/Chest: lungs clear Abdomen: soft Extremities: non-tender Edema: 1+ Leg (L), 1+ Leg (R) Edema: mild edema Neurologic: alert Skin: warm/dry Kee Nick Oct 11, 2016 16:10
[2016-10-11 17:45] LABS: HEMOLYSIS 20; IRON 76 ug/dL (59-158); TOTAL IRON BINDING CAPACITY 163 ug/dL (250-400)
[2016-10-11 17:55] LABS: FERRITIN 428 ng/mL (10-230)
[2016-10-11] MEDS: Levemir Flexpen SUBQ SCH (20:44)
[2016-10-12 04:00] VITALS: BP 103/70
[2016-10-12] MEDS: metroNIDAZOLE 500mg tab ORAL SCH ×3 (05:38→21:33)
[2016-10-12] MEDS: NovoLOG Insulin Flexpen SUBQ SCH ×7 (06:26→20:29)
[2016-10-12 08:00] VITALS: BP 105/72
[2016-10-12] MEDS: Cefepime HCl 1 GM in D5W 55 ML IV SCH ×2 (09:22→21:09)
[2016-10-12] MEDS: Azithromycin 250mg tab ORAL SCH (09:23)
[2016-10-12] MEDS: Heparin 5000 units/ml inj SUBQ SCH ×2 (09:24→20:28)
[2016-10-12] MEDS: Levemir Flexpen SUBQ SCH ×2 (09:25→20:30)
[2016-10-12] MEDS ORDERED: LOMOTIL ORAL PRN (10:15)
--- NOTE | 2016-10-12 10:15 | General Progress Note ---
Assessment/Plan Status: stable - from renal stand Status Narrative watery diarrhea persists \C dif negative on 10/08 Assessment/Plan status; Proteinuria- HypoNatremia- HypoKalemia- HypoPhosphatemia HyperGlycemia Elevated Cancer Markers ( CEA and CA19-9) Pneumonia COPD Cachexia Plan: resume IV NS +KCL K and Na and Phos replacement as needed BS control Monitor renal parameters- Urine studies- GI FU - Lomotil prn per order Subjective ROS Limited/Unobtainable: No Constitutional: Reports: malaise Gastrointestinal/Abdominal: Reports: diarrhea Allergies: Coded Allergies: No Known Allergies (Unverified , 12/17/15) Objective Last 24 Hour Vital Signs Date Time Temp Pulse Resp B/P Pulse Ox O2 Delivery O2 Flow Rate FiO2 10/12/16 08:00 98.2 85 20 105/72 99 Room Air 10/12/16 06:40 72 18 97 Room Air 10/12/16 06:40 76 18 97 Room Air 10/12/16 06:40 72 18 Room Air 10/12/16 04:00 98.2 71 18 103/70 96 Room Air 10/12/16 03:15 Room Air 10/12/16 03:15 Room Air 10/11/16 23:51 98.1 74 18 98/66 99 Room Air 10/11/16 23:18 Room Air 10/11/16 23:18 Room Air 10/11/16 20:00 98.1 81 18 99/68 99 Room Air 10/11/16 19:47 72 18 96 Room Air 10/11/16 19:46 89 18 Room Air 10/11/16 19:46 72 18 96 Room Air 10/11/16 16:00 97.7 67 20 94/65 99 Room Air 10/11/16 15:20 64 18 98 Room Air 21 10/11/16 15:20 66 18 96 Room Air 10/11/16 12:00 97.8 86 20 146/77 94 Room Air 10/11/16 11:10 65 18 95 Room Air 10/11/16 11:10 67 18 98 Room Air 21 Intake and Output 10/11/16 10/12/16 19:00 07:00 Intake Total 360 ml 955 ml Balance 360 ml 955 ml Intake Oral 360 ml 900 ml IV Total 55 ml # Voids 2 4 # Bowel Movements 1 Laboratory Tests 10/11/16 13:30: Prothrombin Time 10.3, Prothromb Time International Ratio 1.0, Iron Level 76, Total Iron Binding Capacity 163L, Percent Iron Saturation 47, Unsaturated Iron Binding 87L, Ferritin 428H Height (Feet): 6 Height (Inches): 2.00 Weight (Pounds): 132 General Appearance: no apparent distress Cardiovascular: regular rhythm Abdomen: soft Objective other PE not changed EMELINA STOVER Oct 12, 2016 10:15
[2016-10-12] MEDS ORDERED: Lomotil 2.5mg tab ORAL ONE (10:30)
--- NOTE | 2016-10-12 10:49 | General Progress Note ---
Assessment/Plan Assessment/Plan ASSESSMENT: 1. Bilateral pulmonary masses/opacities - concerning for malignancy, pending a biopsy 2. Elevated tumor markers CEA and CA-99. Likely related to lung metastatic dz 3. Anemia secondary to chronic disease. Ferritin is elevated 4. Cachexia, malnourishment, and weight loss. 5. Thrombocytopenia, potentially concerning for infection. 6. Leukocytosis, mild. 7. Pneumonia been treated with abx 8. COPD RECOMMENDATIONS: 1. Pending biopsy of lung 2. CAT scan imaging reviewed 3. GI ppx with ppi 4. Deep vein thrombosis with heparin. 5. Antibiotics as needed. 6. Followup on Endocrinology, Pulmonary, Nephrology recs 7. Blood sugar control. 8. Staff Thank you, Lety Nick MD Subjective Constitutional: Reports: no symptoms HEENT: Reports: no symptoms Cardiovascular: Reports: no symptoms Respiratory: Reports: no symptoms Gastrointestinal/Abdominal: Reports: poor appetite Genitourinary: Reports: no symptoms Neurologic/Psychiatric: Reports: no symptoms Endocrine: Reports: no symptoms Hematologic/Lymphatic: Reports: anemia Allergies: Coded Allergies: No Known Allergies (Unverified , 12/17/15) Subjective no hematochezia or hematemesis, no fevers or chills Objective Last 24 Hour Vital Signs Date Time Temp Pulse Resp B/P Pulse Ox O2 Delivery O2 Flow Rate FiO2 10/12/16 08:00 98.2 85 20 105/72 99 Room Air 10/12/16 06:40 72 18 97 Room Air 10/12/16 06:40 76 18 97 Room Air 10/12/16 06:40 72 18 Room Air 10/12/16 04:00 98.2 71 18 103/70 96 Room Air 10/12/16 03:15 Room Air 10/12/16 03:15 Room Air 10/11/16 23:51 98.1 74 18 98/66 99 Room Air 10/11/16 23:18 Room Air 10/11/16 23:18 Room Air 10/11/16 20:00 98.1 81 18 99/68 99 Room Air 10/11/16 19:47 72 18 96 Room Air 10/11/16 19:46 89 18 Room Air 10/11/16 19:46 72 18 96 Room Air 10/11/16 16:00 97.7 67 20 94/65 99 Room Air 10/11/16 15:20 64 18 98 Room Air 21 10/11/16 15:20 66 18 96 Room Air 21 10/11/16 12:00 97.8 86 20 146/77 94 Room Air 10/11/16 11:10 65 18 95 Room Air 21 10/11/16 11:10 67 18 98 Room Air 21 Intake and Output 10/11/16 10/12/16 19:00 07:00 Intake Total 360 ml 955 ml Balance 360 ml 955 ml Intake Oral 360 ml 900 ml IV Total 55 ml # Voids 2 4 # Bowel Movements 1 Laboratory Tests 10/11/16 13:30: Prothrombin Time 10.3, Prothromb Time International Ratio 1.0, Iron Level 76, Total Iron Binding Capacity 163L, Percent Iron Saturation 47, Unsaturated Iron Binding 87L, Ferritin 428H Height (Feet): 6 Height (Inches): 2.00 Weight (Pounds): 132 General Appearance: no apparent distress EENT: TMs normal Neck: supple Cardiovascular: normal rate Respiratory/Chest: normal breath sounds Abdomen: non tender, soft Extremities: non-tender Edema: 1+ Leg (L), 1+ Leg (R) Neurologic: alert Skin: warm/dry LETY NICK Oct 12, 2016 10:49
[2016-10-12 12:00] VITALS: BP 107/70
[2016-10-12] MEDS ORDERED: LOMOTIL ORAL ONE (12:00)
--- NOTE | 2016-10-12 12:30 | Pulmonology Progress Note ---
Assessment/Plan Problems: (1) Pneumonia (2) COPD (chronic obstructive pulmonary disease) (3) Cachectic (4) Lung mass (5) Dehydration Assessment/Plan continue antibiotics respiratory treatment malignancy work up K supplement ct guided biopsy of RLL mass d/w Radiology about biopsy Subjective ROS Limited/Unobtainable: No Interval Events: improving, CT guided biopsy not done Allergies: Coded Allergies: No Known Allergies (Unverified , 12/17/15) Objective Last 24 Hour Vital Signs Date Time Temp Pulse Resp B/P Pulse Ox O2 Delivery O2 Flow Rate FiO2 10/12/16 12:00 98.1 73 20 107/70 99 Room Air 10/12/16 11:25 64 18 95 Room Air 21 10/12/16 11:20 61 18 91 Room Air 21 10/12/16 08:00 98.2 85 20 105/72 99 Room Air 10/12/16 06:40 72 18 97 Room Air 21 10/12/16 06:40 76 18 97 Room Air 21 10/12/16 06:40 72 18 Room Air 10/12/16 04:00 98.2 71 18 103/70 96 Room Air 10/12/16 03:15 Room Air 10/12/16 03:15 Room Air 10/11/16 23:51 98.1 74 18 98/66 99 Room Air 10/11/16 23:18 Room Air 10/11/16 23:18 Room Air 10/11/16 20:00 98.1 81 18 99/68 99 Room Air 10/11/16 19:47 72 18 96 Room Air 21 10/11/16 19:46 89 18 Room Air 10/11/16 19:46 72 18 96 Room Air 21 10/11/16 16:00 97.7 67 20 94/65 99 Room Air 10/11/16 15:20 64 18 98 Room Air 21 10/11/16 15:20 66 18 96 Room Air 21 Intake and Output 10/11/16 10/12/16 19:00 07:00 Intake Total 360 ml 955 ml Balance 360 ml 955 ml Intake Oral 360 ml 900 ml IV Total 55 ml # Voids 2 4 # Bowel Movements 1 Objective sightly better, CT chest done K supplement d/w radiologist Dr. Mauricio will do a ct guided biopsy of RLL mass General Appearance: WD/WN HEENT: normocephalic Respiratory/Chest: chest wall non-tender, lungs clear Cardiovascular: normal peripheral pulses, normal rate Abdomen: normal bowel sounds, soft, non tender Genitourinary: normal external genitalia Skin: no rash Microbiology Date/Time Source Procedure Growth Status 10/10/16 11:35 Nasopharynx Influenza Types A,B Antigen (NEGRO) - Final Complete 10/10/16 23:00 Urine,Clean Catch Urine Culture - Preliminary NO GROWTH AFTER 24 HOURS Resulted Laboratory Tests 10/11/16 13:30: Prothrombin Time 10.3, Prothromb Time International Ratio 1.0, Iron Level 76, Total Iron Binding Capacity 163L, Percent Iron Saturation 47, Unsaturated Iron Binding 87L, Ferritin 428H Current Medications Medications (Trade) Dose Ordered Sig/Suzette Route PRN Reason Start Time Stop Time Status Last Admin Dose Admin Acetaminophen (Tylenol) 650 mg Q4H PRN ORAL fever 10/07/16 19:45 11/06/16 19:44 10/08/16 14:29 Acetaminophen/ Hydrocodone Bitart ([place] 5/325) 1 tab Q4H PRN ORAL Moderate Pain (Pain Scale 4-6) 10/08/16 18:15 10/15/16 18:14 10/11/16 17:54 Albuterol/ Ipratropium 3 ml 3 ml Q4H PRN HHN Shortness of Breath 10/07/16 19:45 10/12/16 19:44 Azithromycin (Zithromax) 250 mg DAILY ORAL 10/09/16 09:00 10/16/16 08:59 10/12/16 09:23 Cefepime HCl/ Dextrose (Maxipime/D5W) 55 ml @ 110 mls/hr EVERY 12 HOURS IV 10/07/16 21:00 10/14/16 20:59 10/12/16 09:22 Dextrose (Dextrose 50%) STAT PRN IV Hypoglycemia 10/07/16 19:45 11/06/16 19:44 Diphenoxylate HCl/ Atropine (Lomotil) 2.5 mg Q4H PRN ORAL Diarrhea 10/12/16 10:30 10/19/16 10:29 Heparin Sodium (Porcine) (Heparin 5000 units/ml) 5,000 units EVERY 12 HOURS SUBQ 10/07/16 21:00 11/06/16 20:59 10/12/16 09:24 Insulin Aspart (NovoLOG) BEFORE MEALS AND HS SUBQ 10/07/16 21:00 11/06/16 20:59 10/11/16 20:45 Insulin Aspart (NovoLOG) 10 units NOVOTIAC SUBQ 10/10/16 06:30 11/09/16 06:29 10/11/16 17:15 Insulin Detemir 30 units 30 units Q12HR SUBQ 10/11/16 21:00 11/10/16 20:59 10/12/16 09:25 Metronidazole (Flagyl) 500 mg Q8HR ORAL 10/10/16 14:00 10/17/16 13:59 10/12/16 05:38 Nitroglycerin (Ntg) 0.4 mg Q5MIN X 3 DOSES PRN SL Prn Chest Pain 10/07/16 19:45 11/06/16 19:44 Ondansetron HCl (Zofran) 4 mg Q6H PRN IVP Nausea & Vomiting 10/07/16 19:45 11/06/16 19:44 10/09/16 11:57 Pantoprazole (Protonix) 40 mg EVERY 12 HOURS ORAL 10/09/16 21:00 11/08/16 20:59 10/12/16 09:23 Polyethylene Glycol (Miralax) 17 gm DAILYPRN PRN ORAL Constipation 10/07/16 19:45 11/06/16 19:44 Potassium Chloride/Sodium Chloride (KCl/Sodium Chloride 1000ml bag) 1,015 ml @ 75 mls/hr [id number] IV 10/12/16 12:00 11/11/16 11:59 Potassium Chloride (K-Dur) 40 meq Q12HR@0600,1800 ORAL 10/11/16 06:00 11/10/16 05:59 10/12/16 05:38 Promethazine HCl/ Codeine (Phenergan with Codeine) 5 ml Q4H PRN ORAL For Cough 10/09/16 16:30 11/08/16 16:29 10/09/16 22:28 Temazepam (Restoril) 15 mg HSPRN PRN ORAL Insomnia 10/07/16 19:45 10/14/16 19:44 GISSELLE DALY Oct 12, 2016 12:30
[2016-10-12] MEDS ORDERED: Tubing IV Secondary IV ONE (13:37)
[2016-10-12] MEDS ORDERED: NS 275ml ONE (13:37)
[2016-10-12] MEDS ORDERED: NS 550ML IV ONE (13:37)
[2016-10-12] MEDS: Norco 5mg/325mg tab ORAL PRN (14:31)
[2016-10-12 16:00] VITALS: BP 104/63
[2016-10-12 20:00] VITALS: BP 100/66
[2016-10-12] MEDS: DuoNeb 0.5-3(2.5)mg/3ml neb HHN SCH (23:59)
[2016-10-13 00:50] VITALS: BP 105/63
[2016-10-13] MEDS: DuoNeb 0.5-3(2.5)mg/3ml neb HHN SCH ×6 (03:00→23:00)
[2016-10-13 04:00] VITALS: BP 109/74
[2016-10-13] MEDS: metroNIDAZOLE 500mg tab ORAL SCH ×3 (05:40→21:15)
[2016-10-13] MEDS: NovoLOG Insulin Flexpen SUBQ SCH ×7 (05:47→21:00)
[2016-10-13 08:20] VITALS: BP 101/67
[2016-10-13] MEDS: Levemir Flexpen SUBQ SCH ×2 (08:38→21:00)
[2016-10-13] MEDS: Heparin 5000 units/ml inj SUBQ SCH ×2 (08:39→21:18)
[2016-10-13] MEDS: Cefepime HCl 1 GM in D5W 55 ML IV SCH ×2 (08:52→21:19)
--- NOTE | 2016-10-13 09:00 | General Progress Note ---
Assessment/Plan Problem List: (1) Diabetes mellitus out of control ICD Codes: E11.65 - Type 2 diabetes mellitus with hyperglycemia SNOMED: 375992708 (2) Lung mass ICD Codes: R91.8 - Other nonspecific abnormal finding of lung field SNOMED: 559075307 (3) Cachectic ICD Codes: R64 - Cachexia SNOMED: 062545487 (4) COPD (chronic obstructive pulmonary disease) ICD Codes: J44.9 - Chronic obstructive pulmonary disease, unspecified SNOMED: 67749504 Assessment/Plan change Levemir to 20 units bid change Novolog to 8 units ac tid check A1c Subjective Allergies: Coded Allergies: No Known Allergies (Unverified , 12/17/15) All Systems: reviewed and negative except above Subjective events noted - interval notes reviewed Objective Last 24 Hour Vital Signs Date Time Temp Pulse Resp B/P Pulse Ox O2 Delivery O2 Flow Rate FiO2 10/13/16 07:05 67 14 99 Room Air 10/13/16 06:57 61 16 100 Room Air 10/13/16 06:57 61 14 Room Air 10/13/16 04:00 98.4 80 21 109/74 95 Room Air 10/13/16 03:06 Room Air 10/13/16 03:05 Room Air 10/13/16 00:50 97.9 96 20 105/63 97 Room Air 10/13/16 00:10 88 14 99 Room Air 10/13/16 00:00 80 16 98 Room Air 10/12/16 20:00 77 16 99 Room Air 10/12/16 20:00 98.5 71 20 100/66 97 Room Air 10/12/16 19:58 77 16 97 Room Air 10/12/16 19:58 77 14 Room Air 10/12/16 16:00 98.4 78 20 104/63 98 Room Air 10/12/16 15:57 66 18 97 Room Air 21 10/12/16 15:50 66 18 94 Room Air 10/12/16 15:30 98.1 10/12/16 12:00 98.1 73 20 107/70 99 Room Air 10/12/16 11:25 64 18 95 Room Air 21 10/12/16 11:20 61 18 91 Room Air 21 Intake and Output 10/12/16 10/13/16 19:00 07:00 Intake Total 1455 ml 1120 ml Output Total 1 ml 0 ml Balance 1454 ml 1120 ml Intake Oral 1080 ml 840 ml IV Total 375 ml 280 ml Output Urine Total 0 ml Emesis 1 ml # Voids 5 3 # Bowel Movements 8 Height (Feet): 6 Height (Inches): 2.00 Weight (Pounds): 132 General Appearance: no apparent distress Neck: normal alignment Cardiovascular: normal peripheral pulses Respiratory/Chest: decreased breath sounds Abdomen: normal bowel sounds Pelvis: normal external exam Edema: no edema noted Arm (L), no edema noted Arm (R), no edema noted Leg (L), no edema noted Leg (R), no edema noted Pedal (L), no edema noted Pedal (R), no edema noted Generalized Objective Current Medications Medications (Trade) Dose Ordered Sig/Suzette Route PRN Reason Start Time Stop Time Status Last Admin Dose Admin Acetaminophen (Tylenol) 650 mg Q4H PRN ORAL fever 10/07/16 19:45 11/06/16 19:44 10/08/16 14:29 Acetaminophen/ Hydrocodone Bitart ([place] 5/325) 1 tab Q4H PRN ORAL Moderate Pain (Pain Scale 4-6) 10/08/16 18:15 10/15/16 18:14 10/12/16 14:31 Albuterol/ Ipratropium (DuoNeb 0.5-3(2.5)mg/3ml) 3 ml Q4HRT HHN 10/12/16 23:00 10/17/16 22:59 10/13/16 06:56 Cefepime HCl/ Dextrose (Maxipime/D5W) 55 ml @ 110 mls/hr EVERY 12 HOURS IV 10/07/16 21:00 10/14/16 20:59 10/13/16 08:52 Dextrose (Dextrose 50%) STAT PRN IV Hypoglycemia 10/07/16 19:45 11/06/16 19:44 10/12/16 17:13 Diphenoxylate HCl/ Atropine (Lomotil) 2.5 mg Q4H PRN ORAL Diarrhea 10/12/16 10:30 10/19/16 10:29 Heparin Sodium (Porcine) (Heparin 5000 units/ml) 5,000 units EVERY 12 HOURS SUBQ 10/07/16 21:00 11/06/16 20:59 10/13/16 08:39 Insulin Aspart (NovoLOG) BEFORE MEALS AND HS SUBQ 10/07/16 21:00 11/06/16 20:59 10/13/16 05:47 Insulin Aspart (NovoLOG) 10 units NOVOTIAC SUBQ 10/10/16 06:30 11/09/16 06:29 10/12/16 12:47 Insulin Detemir 30 units 30 units Q12HR SUBQ 10/11/16 21:00 11/10/16 20:59 10/13/16 08:38 Metronidazole (Flagyl) 500 mg Q8HR ORAL 10/10/16 14:00 10/17/16 13:59 10/13/16 05:40 Nitroglycerin (Ntg) 0.4 mg Q5MIN X 3 DOSES PRN SL Prn Chest Pain 10/07/16 19:45 11/06/16 19:44 Ondansetron HCl (Zofran) 4 mg Q6H PRN IVP Nausea & Vomiting 10/07/16 19:45 11/06/16 19:44 10/12/16 16:56 Pantoprazole (Protonix) 40 mg EVERY 12 HOURS ORAL 10/09/16 21:00 11/08/16 20:59 10/13/16 08:39 Polyethylene Glycol (Miralax) 17 gm DAILYPRN PRN ORAL Constipation 10/07/16 19:45 11/06/16 19:44 Potassium Chloride/Sodium Chloride (KCl/Sodium Chloride 1000ml bag) 1,015 ml @ 75 mls/hr [id number] IV 10/12/16 12:00 11/11/16 11:59 10/13/16 01:44 Potassium Chloride (K-Dur) 40 meq Q12HR@0600,1800 ORAL 10/11/16 06:00 11/10/16 05:59 10/13/16 05:40 Promethazine HCl/ Codeine (Phenergan with Codeine) 5 ml Q4H PRN ORAL For Cough 10/09/16 16:30 11/08/16 16:29 10/09/16 22:28 Temazepam (Restoril) 15 mg HSPRN PRN ORAL Insomnia 10/07/16 19:45 10/14/16 19:44 Item Value Date Time Bedside Blood Glucose 311 mg/dl H 10/13/16 0838 Bedside Blood Glucose 248 mg/dl H 10/13/16 0630 Bedside Blood Glucose 112 mg/dl 10/12/16 2100 Bedside Blood Glucose 117 mg/dl 10/12/16 1828 Bedside Blood Glucose 256 mg/dl H 10/12/16 1247 Bedside Blood Glucose 125 mg/dl H 10/12/16 0925 CIPRIANO SILVER Oct 13, 2016 09:00
[2016-10-13 11:27] LABS: BASOPHILS % (AUTO) 1.4 % (0.0-2.0); EOSINOPHILS % (AUTO) 0.2 % (0.0-3.0); LYMPHOCYTES % (AUTO) 26.2 % (20.0-45.0); MEAN CORPUSCULAR HGB CONC 33.2 G/DL (32.0-36.0); MEAN CORPUSCULAR VOLUME 106 FL (80-99); MEAN PLATELET VOLUME 7.2 FL (6.5-10.1); MONOCYTES % (AUTO) 11.7 % (1.0-10.0); NEUTROPHILS % (AUTO) 60.5 % (45.0-75.0); PLATELET COUNT 221 K/UL (150-450); RED BLOOD COUNT 3.31 M/UL (4.70-6.10); RED CELL DISTRIBUTION WIDTH 11.6 % (11.6-14.8); WHITE BLOOD COUNT 8.6 K/UL (4.8-10.8)
--- NOTE | 2016-10-13 11:33 | General Progress Note ---
Assessment/Plan Assessment/Plan ASSESSMENT: 1. Bilateral pulmonary masses/opacities - concerning for malignancy, pending a ct-guided biopsy 2. Elevated tumor markers CEA and CA-99. Likely related to lung metastatic dz 3. Anemia secondary to chronic disease. Ferritin is elevated 4. Cachexia, malnourishment, and weight loss. 5. Thrombocytopenia, potentially concerning for infection. 6. Leukocytosis, mild. 7. Pneumonia been treated with abx 8. COPD RECOMMENDATIONS: 1. Pending biopsy of lung 2. CAT scan imaging reviewed 3. GI ppx with ppi 4. Deep vein ppx with heparin sq 5. Antibiotics as needed. 6. Followup on Endocrinology, Pulmonary, Nephrology recs 7. Blood sugar control. 8. Staff Thank you, Lety Nick MD Subjective Constitutional: Reports: no symptoms HEENT: Reports: mouth pain Respiratory: Reports: no symptoms Gastrointestinal/Abdominal: Reports: poor appetite Genitourinary: Reports: no symptoms Neurologic/Psychiatric: Reports: no symptoms Endocrine: Reports: no symptoms Hematologic/Lymphatic: Reports: anemia Allergies: Coded Allergies: No Known Allergies (Unverified , 12/17/15) Subjective no hematochezia or hematemesis, did not get bx yet Objective Last 24 Hour Vital Signs Date Time Temp Pulse Resp B/P Pulse Ox O2 Delivery O2 Flow Rate FiO2 10/13/16 08:20 98.6 69 20 101/67 98 Room Air 10/13/16 07:05 67 14 99 Room Air 10/13/16 06:57 61 16 100 Room Air 10/13/16 06:57 61 14 Room Air 10/13/16 04:00 98.4 80 21 109/74 95 Room Air 10/13/16 03:06 Room Air 10/13/16 03:05 Room Air 10/13/16 00:50 97.9 96 20 105/63 97 Room Air 10/13/16 00:10 88 14 99 Room Air 10/13/16 00:00 80 16 98 Room Air 10/12/16 20:00 77 16 99 Room Air 10/12/16 20:00 98.5 71 20 100/66 97 Room Air 10/12/16 19:58 77 16 97 Room Air 10/12/16 19:58 77 14 Room Air 10/12/16 16:00 98.4 78 20 104/63 98 Room Air 10/12/16 15:57 66 18 97 Room Air 21 10/12/16 15:50 66 18 94 Room Air 21 10/12/16 15:30 98.1 10/12/16 12:00 98.1 73 20 107/70 99 Room Air Intake and Output 10/12/16 10/13/16 19:00 07:00 Intake Total 1455 ml 1120 ml Output Total 1 ml 0 ml Balance 1454 ml 1120 ml Intake Oral 1080 ml 840 ml IV Total 375 ml 280 ml Output Urine Total 0 ml Emesis 1 ml # Voids 5 3 # Bowel Movements 8 Laboratory Tests 10/13/16 11:15: White Blood Count 8.6, Red Blood Count 3.31L, Hemoglobin 11.6L, Hematocrit 35.0L , Mean Corpuscular Volume 106H, Mean Corpuscular Hemoglobin 35.0H, Mean Corpuscular Hemoglobin Concent 33.2, Red Cell Distribution Width 11.6, Platelet Count 221, Mean Platelet Volume 7.2, Neutrophils (%) (Auto) 60.5, Lymphocytes (% ) (Auto) 26.2, Monocytes (%) (Auto) 11.7H, Eosinophils (%) (Auto) 0.2, Basophils (%) (Auto) 1.4, Sodium Level [Pending], Potassium Level [Pending], Chloride Level [Pending], Carbon Dioxide Level [Pending], Blood Urea Nitrogen [ Pending], Creatinine [Pending], Estimat Glomerular Filtration Rate [Pending], Glucose Level [Pending], Calcium Level [Pending], Phosphorus Level [Pending], Magnesium Level [Pending], Total Bilirubin [Pending], Aspartate Amino Transf ( AST/SGOT) [Pending], Alanine Aminotransferase (ALT/SGPT) [Pending], Alkaline Phosphatase [Pending], Total Protein [Pending], Albumin [Pending], Globulin [ Pending] Height (Feet): 6 Height (Inches): 2.00 Weight (Pounds): 132 General Appearance: no apparent distress EENT: normal ENT inspection Neck: supple Cardiovascular: regular rhythm Respiratory/Chest: lungs clear Abdomen: no organomegaly Extremities: non-tender Edema: no edema noted Leg (L), no edema noted Leg (R) Neurologic: alert Skin: warm/dry LEYT NICK Oct 13, 2016 11:33
[2016-10-13 11:44] LABS: ANION GAP 18 (5-15); ASPARTATE AMINO TRANSFERASE 18 U/L (5-40); CALCIUM 8.9 mg/dL (8.6-10.2); CARBON DIOXIDE 22 mEQ/L (20-30); CHLORIDE 95 mEQ/L (98-107); CREATININE 0.6 mg/dL (0.7-1.2); GLOMERULAR FILTRATION RATE > 60 mL/min (>60); HEMOLYSIS 4; MAGNESIUM 1.6 mg/dL (1.7-2.5); PHOSPHORUS 3.9 mg/dL (2.5-4.8); SODIUM 135 mEQ/L (135-145); TOTAL PROTEIN 6.4 g/dL (6.6-8.7)
[2016-10-13 11:54] LABS: ALANINE AMINOTRANSFERASE 18 U/L (3-41)
[2016-10-13 12:37] VITALS: BP 111/76
--- NOTE | 2016-10-13 12:57 | Pulmonology Progress Note ---
Assessment/Plan Problems: (1) Pneumonia (2) COPD (chronic obstructive pulmonary disease) (3) Cachectic (4) Lung mass (5) Dehydration Assessment/Plan continue antibiotics respiratory treatment malignancy work up K supplement ct guided biopsy of RLL mass d/w Radiology about biopsy Subjective ROS Limited/Unobtainable: No Constitutional: Reports: no symptoms HEENT: Repors: no symptoms Cardiovascular: Reports: no symptoms Allergies: Coded Allergies: No Known Allergies (Unverified , 12/17/15) Objective Last 24 Hour Vital Signs Date Time Temp Pulse Resp B/P Pulse Ox O2 Delivery O2 Flow Rate FiO2 10/13/16 12:37 98.2 69 20 111/76 100 Room Air 10/13/16 11:46 70 14 99 Room Air 10/13/16 11:39 65 16 100 Room Air 10/13/16 08:20 98.6 69 20 101/67 98 Room Air 10/13/16 07:05 67 14 99 Room Air 10/13/16 06:57 61 16 100 Room Air 10/13/16 06:57 61 14 Room Air 10/13/16 04:00 98.4 80 21 109/74 95 Room Air 10/13/16 03:06 Room Air 10/13/16 03:05 Room Air 10/13/16 00:50 97.9 96 20 105/63 97 Room Air 10/13/16 00:10 88 14 99 Room Air 10/13/16 00:00 80 16 98 Room Air 10/12/16 20:00 77 16 99 Room Air 10/12/16 20:00 98.5 71 20 100/66 97 Room Air 10/12/16 19:58 77 16 97 Room Air 10/12/16 19:58 77 14 Room Air 10/12/16 16:00 98.4 78 20 104/63 98 Room Air 10/12/16 15:57 66 18 97 Room Air 10/12/16 15:50 66 18 94 Room Air 10/12/16 15:30 98.1 Intake and Output 10/12/16 10/13/16 19:00 07:00 Intake Total 1455 ml 1120 ml Output Total 1 ml 0 ml Balance 1454 ml 1120 ml Intake Oral 1080 ml 840 ml IV Total 375 ml 280 ml Output Urine Total 0 ml Emesis 1 ml # Voids 5 3 # Bowel Movements 8 Objective sightly better, CT chest done K supplement d/w radiologist Dr. Mauricio will do a ct guided biopsy of RLL mass HEENT: normocephalic, atraumatic Respiratory/Chest: chest wall non-tender, lungs clear Cardiovascular: normal peripheral pulses, normal rate Abdomen: normal bowel sounds, soft, non tender Extremities: no cyanosis Skin: no rash Microbiology Date/Time Source Procedure Growth Status 10/10/16 23:00 Stool Stool Culture - Preliminary NO SALMONELLA,SHIGELLA,OR CAMPYLOBACT... Resulted 10/10/16 23:00 Urine,Clean Catch Urine Culture - Final NO GROWTH AFTER 48 HOURS Complete Laboratory Tests 10/13/16 11:15: White Blood Count 8.6, Red Blood Count 3.31L, Hemoglobin 11.6L, Hematocrit 35.0L , Mean Corpuscular Volume 106H, Mean Corpuscular Hemoglobin 35.0H, Mean Corpuscular Hemoglobin Concent 33.2, Red Cell Distribution Width 11.6, Platelet Count 221, Mean Platelet Volume 7.2, Neutrophils (%) (Auto) 60.5, Lymphocytes (% ) (Auto) 26.2, Monocytes (%) (Auto) 11.7H, Eosinophils (%) (Auto) 0.2, Basophils (%) (Auto) 1.4, Sodium Level 135, Potassium Level 5.0H, Chloride Level 95L, Carbon Dioxide Level 22, Anion Gap 18H, Blood Urea Nitrogen 5L, Creatinine 0.6L, Estimat Glomerular Filtration Rate > 60, Glucose Level 325H, Calcium Level 8.9, Phosphorus Level 3.9, Magnesium Level 1.6L, Total Bilirubin 0.2, Aspartate Amino Transf (AST/SGOT) 18, Alanine Aminotransferase (ALT/SGPT) 18, Alkaline Phosphatase 136H, Total Protein 6.4L, Albumin 3.2L, Globulin 3.2, Albumin/Globulin Ratio 1.0 Current Medications Medications (Trade) Dose Ordered Sig/Suzette Route PRN Reason Start Time Stop Time Status Last Admin Dose Admin Acetaminophen (Tylenol) 650 mg Q4H PRN ORAL fever 10/07/16 19:45 11/06/16 19:44 10/08/16 14:29 Acetaminophen/ Hydrocodone Bitart ([place] 5/325) 1 tab Q4H PRN ORAL Moderate Pain (Pain Scale 4-6) 10/08/16 18:15 10/15/16 18:14 10/12/16 14:31 Albuterol/ Ipratropium (DuoNeb 0.5-3(2.5)mg/3ml) 3 ml Q4HRT HHN 10/12/16 23:00 10/17/16 22:59 10/13/16 11:38 Cefepime HCl/ Dextrose (Maxipime/D5W) 55 ml @ 110 mls/hr EVERY 12 HOURS IV 10/07/16 21:00 10/14/16 20:59 10/13/16 08:52 Dextrose (Dextrose 50%) STAT PRN IV Hypoglycemia 10/07/16 19:45 11/06/16 19:44 10/12/16 17:13 Diphenoxylate HCl/ Atropine (Lomotil) 2.5 mg Q4H PRN ORAL Diarrhea 10/12/16 10:30 10/19/16 10:29 Heparin Sodium (Porcine) (Heparin 5000 units/ml) 5,000 units EVERY 12 HOURS SUBQ 10/07/16 21:00 11/06/16 20:59 10/13/16 08:39 Insulin Aspart (NovoLOG) BEFORE MEALS AND HS SUBQ 10/07/16 21:00 11/06/16 20:59 10/13/16 12:09 Insulin Aspart (NovoLOG) 8 units NOVOTIAC SUBQ 10/13/16 11:50 11/12/16 11:49 10/13/16 12:08 Insulin Detemir (Levemir) 20 units Q12HR SUBQ 10/13/16 21:00 11/12/16 20:59 Metronidazole (Flagyl) 500 mg Q8HR ORAL 10/10/16 14:00 10/17/16 13:59 10/13/16 05:40 Nitroglycerin (Ntg) 0.4 mg Q5MIN X 3 DOSES PRN SL Prn Chest Pain 10/07/16 19:45 11/06/16 19:44 Ondansetron HCl (Zofran) 4 mg Q6H PRN IVP Nausea & Vomiting 10/07/16 19:45 11/06/16 19:44 10/12/16 16:56 Pantoprazole (Protonix) 40 mg EVERY 12 HOURS ORAL 10/09/16 21:00 11/08/16 20:59 10/13/16 08:39 Polyethylene Glycol (Miralax) 17 gm DAILYPRN PRN ORAL Constipation 10/07/16 19:45 11/06/16 19:44 Potassium Chloride 40 meq 40 meq Q12HR@0600,1800 ORAL 10/11/16 06:00 11/10/16 05:59 10/13/16 05:40 Potassium Chloride/Sodium Chloride (KCl/Sodium Chloride 1000ml bag) 1,015 ml @ 75 mls/hr [id number] IV 10/12/16 12:00 11/11/16 11:59 10/13/16 01:44 Promethazine HCl/ Codeine (Phenergan with Codeine) 5 ml Q4H PRN ORAL For Cough 10/09/16 16:30 11/08/16 16:29 10/09/16 22:28 Temazepam (Restoril) 15 mg HSPRN PRN ORAL Insomnia 10/07/16 19:45 10/14/16 19:44 GISSELLE DALY Oct 13, 2016 12:56
--- NOTE | 2016-10-13 13:05 | General Progress Note ---
Assessment/Plan Status: stable - from renal stand Assessment/Plan status; Proteinuria- HypoNatremia- HypoKalemia- HypoPhosphatemia HyperGlycemia Elevated Cancer Markers ( CEA and CA19-9) Pneumonia COPD Cachexia Plan: resume IV NS +KCL K and Na and Phos replacement as needed BS control Monitor renal parameters- Urine studies- GI FU - Lomotil prn per order Subjective ROS Limited/Unobtainable: No Allergies: Coded Allergies: No Known Allergies (Unverified , 12/17/15) Objective Last 24 Hour Vital Signs Date Time Temp Pulse Resp B/P Pulse Ox O2 Delivery O2 Flow Rate FiO2 10/13/16 12:37 98.2 69 20 111/76 100 Room Air 10/13/16 11:46 70 14 99 Room Air 10/13/16 11:39 65 16 100 Room Air 10/13/16 08:20 98.6 69 20 101/67 98 Room Air 10/13/16 07:05 67 14 99 Room Air 10/13/16 06:57 61 16 100 Room Air 10/13/16 06:57 61 14 Room Air 10/13/16 04:00 98.4 80 21 109/74 95 Room Air 10/13/16 03:06 Room Air 10/13/16 03:05 Room Air 10/13/16 00:50 97.9 96 20 105/63 97 Room Air 10/13/16 00:10 88 14 99 Room Air 10/13/16 00:00 80 16 98 Room Air 10/12/16 20:00 77 16 99 Room Air 10/12/16 20:00 98.5 71 20 100/66 97 Room Air 10/12/16 19:58 77 16 97 Room Air 10/12/16 19:58 77 14 Room Air 10/12/16 16:00 98.4 78 20 104/63 98 Room Air 10/12/16 15:57 66 18 97 Room Air 10/12/16 15:50 66 18 94 Room Air 10/12/16 15:30 98.1 Intake and Output 10/12/16 10/13/16 19:00 07:00 Intake Total 1455 ml 1120 ml Output Total 1 ml 0 ml Balance 1454 ml 1120 ml Intake Oral 1080 ml 840 ml IV Total 375 ml 280 ml Output Urine Total 0 ml Emesis 1 ml # Voids 5 3 # Bowel Movements 8 Laboratory Tests 10/13/16 11:15: White Blood Count 8.6, Red Blood Count 3.31L, Hemoglobin 11.6L, Hematocrit 35.0L , Mean Corpuscular Volume 106H, Mean Corpuscular Hemoglobin 35.0H, Mean Corpuscular Hemoglobin Concent 33.2, Red Cell Distribution Width 11.6, Platelet Count 221, Mean Platelet Volume 7.2, Neutrophils (%) (Auto) 60.5, Lymphocytes (% ) (Auto) 26.2, Monocytes (%) (Auto) 11.7H, Eosinophils (%) (Auto) 0.2, Basophils (%) (Auto) 1.4, Sodium Level 135, Potassium Level 5.0H, Chloride Level 95L, Carbon Dioxide Level 22, Anion Gap 18H, Blood Urea Nitrogen 5L, Creatinine 0.6L, Estimat Glomerular Filtration Rate > 60, Glucose Level 325H, Calcium Level 8.9, Phosphorus Level 3.9, Magnesium Level 1.6L, Total Bilirubin 0.2, Aspartate Amino Transf (AST/SGOT) 18, Alanine Aminotransferase (ALT/SGPT) 18, Alkaline Phosphatase 136H, Total Protein 6.4L, Albumin 3.2L, Globulin 3.2, Albumin/Globulin Ratio 1.0 Height (Feet): 6 Height (Inches): 2.00 Weight (Pounds): 132 General Appearance: no apparent distress Objective other PE not changed EMELINA STOVER Oct 13, 2016 13:05
--- NOTE | 2016-10-13 14:31 | Infectious Diseases Prog Note ---
Assessment/Plan Assessment/Plan ASSESSMENT: 51 y/o male with: // RLL PNA - SCx, : ( Nl Fl and yeast colonizer ) - CXR 10/07: Right basilar pneumonia suspected - h/o right empyema SP VATS // Periodontal disease // Acute leukocytosis - SP // HIV , Flu : Neg // Blood Cx : PSA // Diarrhea // CT: Bilateral patchy and reticular borderline masslike opacities. and mediastinal lymphadenopathy , concern for neoplastic process. // Deep vein thrombosis // CA-19. CEA : elevated // Unintentional weigh loss / cachexia - h/o PPD(-) // Chronic pancreatitis // Tobacco abuse // NKDA // Full Code PLAN: - continue cefepime d# 6 / 10 , Flagyl d# 5 ,DC azithromycin d# 5 / 5 - f/u cultures ( stool ) - monitor CBC, temperatures - monitor BMP - monitor CXR Subjective Constitutional: Denies: anorexia, chills, drenching sweats, fatigue, fever, no symptoms, other Allergies: Coded Allergies: No Known Allergies (Unverified , 12/17/15) Subjective no diarrhea Objective Vital Signs Last 24 Hour Vital Signs Date Time Temp Pulse Resp B/P Pulse Ox O2 Delivery O2 Flow Rate FiO2 10/13/16 12:37 98.2 69 20 111/76 100 Room Air 10/13/16 11:46 70 14 99 Room Air 10/13/16 11:39 65 16 100 Room Air 10/13/16 08:20 98.6 69 20 101/67 98 Room Air 10/13/16 07:05 67 14 99 Room Air 10/13/16 06:57 61 16 100 Room Air 10/13/16 06:57 61 14 Room Air 10/13/16 04:00 98.4 80 21 109/74 95 Room Air 10/13/16 03:06 Room Air 10/13/16 03:05 Room Air 10/13/16 00:50 97.9 96 20 105/63 97 Room Air 10/13/16 00:10 88 14 99 Room Air 10/13/16 00:00 80 16 98 Room Air 21 10/12/16 20:00 77 16 99 Room Air 10/12/16 20:00 98.5 71 20 100/66 97 Room Air 10/12/16 19:58 77 16 97 Room Air 21 10/12/16 19:58 77 14 Room Air 10/12/16 16:00 98.4 78 20 104/63 98 Room Air 10/12/16 15:57 66 18 97 Room Air 21 10/12/16 15:50 66 18 94 Room Air 21 10/12/16 15:30 98.1 Height (Feet): 6 Height (Inches): 2.00 Weight (Pounds): 132 HEENT: atraumatic Respiratory/Chest: lungs clear, normal breath sounds Cardiovascular: normal rate, regular rhythm Abdomen: soft, non tender, no organomegaly Microbiology Date/Time Source Procedure Growth Status 10/10/16 23:00 Stool Stool Culture - Preliminary NO SALMONELLA,SHIGELLA,OR CAMPYLOBACT... Resulted 10/10/16 23:00 Urine,Clean Catch Urine Culture - Final NO GROWTH AFTER 48 HOURS Complete Laboratory Tests Test 10/13/16 11:15 White Blood Count 8.6 K/UL (4.8-10.8) Red Blood Count 3.31 M/UL (4.70-6.10) L Hemoglobin 11.6 G/DL (14.2-18.0) L Hematocrit 35.0 % (42.0-52.0) L Mean Corpuscular Volume 106 FL (80-99) H Mean Corpuscular Hemoglobin 35.0 PG (27.0-31.0) H Mean Corpuscular Hemoglobin Concent 33.2 G/DL (32.0-36.0) Red Cell Distribution Width 11.6 % (11.6-14.8) Platelet Count 221 K/UL (150-450) Mean Platelet Volume 7.2 FL (6.5-10.1) Neutrophils (%) (Auto) 60.5 % (45.0-75.0) Lymphocytes (%) (Auto) 26.2 % (20.0-45.0) Monocytes (%) (Auto) 11.7 % (1.0-10.0) H Eosinophils (%) (Auto) 0.2 % (0.0-3.0) Basophils (%) (Auto) 1.4 % (0.0-2.0) Sodium Level 135 mEQ/L (135-145) Potassium Level 5.0 mEQ/L (3.4-4.9) H Chloride Level 95 mEQ/L (98-107) L Carbon Dioxide Level 22 mEQ/L (20-30) Anion Gap 18 (5-15) H Blood Urea Nitrogen 5 mg/dL (7-23) L Creatinine 0.6 mg/dL (0.7-1.2) L Estimat Glomerular Filtration Rate > 60 mL/min (>60) Glucose Level 325 mg/dL (74-106) H Calcium Level 8.9 mg/dL (8.6-10.2) Phosphorus Level 3.9 mg/dL (2.5-4.8) Magnesium Level 1.6 mg/dL (1.7-2.5) L Total Bilirubin 0.2 mg/dL (0.0-1.2) Aspartate Amino Transf (AST/SGOT) 18 U/L (5-40) Alanine Aminotransferase (ALT/SGPT) 18 U/L (3-41) Alkaline Phosphatase 136 U/L (40-129) H Total Protein 6.4 g/dL (6.6-8.7) L Albumin 3.2 g/dL (3.5-5.2) L Globulin 3.2 g/dL Albumin/Globulin Ratio 1.0 (1.0-2.7) Current Medications Medications (Trade) Dose Ordered Sig/Suzette Route PRN Reason Start Time Stop Time Status Last Admin Dose Admin Acetaminophen (Tylenol) 650 mg Q4H PRN ORAL fever 10/07/16 19:45 11/06/16 19:44 10/08/16 14:29 Acetaminophen/ Hydrocodone Bitart ([place] 5/325) 1 tab Q4H PRN ORAL Moderate Pain (Pain Scale 4-6) 10/08/16 18:15 10/15/16 18:14 10/12/16 14:31 Albuterol/ Ipratropium (DuoNeb 0.5-3(2.5)mg/3ml) 3 ml Q4HRT HHN 10/12/16 23:00 10/17/16 22:59 10/13/16 11:38 Cefepime HCl/ Dextrose (Maxipime/D5W) 55 ml @ 110 mls/hr EVERY 12 HOURS IV 10/07/16 21:00 10/14/16 20:59 10/13/16 08:52 Dextrose (Dextrose 50%) STAT PRN IV Hypoglycemia 10/07/16 19:45 11/06/16 19:44 10/12/16 17:13 Diphenoxylate HCl/ Atropine (Lomotil) 2.5 mg Q4H PRN ORAL Diarrhea 10/12/16 10:30 10/19/16 10:29 Heparin Sodium (Porcine) (Heparin 5000 units/ml) 5,000 units EVERY 12 HOURS SUBQ 10/07/16 21:00 11/06/16 20:59 10/13/16 08:39 Insulin Aspart (NovoLOG) BEFORE MEALS AND HS SUBQ 10/07/16 21:00 11/06/16 20:59 10/13/16 12:09 Insulin Aspart (NovoLOG) 8 units NOVOTIAC SUBQ 10/13/16 11:50 11/12/16 11:49 10/13/16 12:08 Insulin Detemir 20 units 20 units Q12HR SUBQ 10/13/16 21:00 11/12/16 20:59 Magnesium Sulfate (Magnesium Sulfate 1gm/100ml) 100 ml @ 100 mls/hr Q1H IVPB 10/13/16 14:00 10/13/16 15:59 10/13/16 13:45 Metronidazole 500 mg 500 mg Q8HR ORAL 10/10/16 14:00 10/17/16 13:59 10/13/16 13:00 Nitroglycerin (Ntg) 0.4 mg Q5MIN X 3 DOSES PRN SL Prn Chest Pain 10/07/16 19:45 11/06/16 19:44 Ondansetron HCl (Zofran) 4 mg Q6H PRN IVP Nausea & Vomiting 10/07/16 19:45 11/06/16 19:44 10/12/16 16:56 Pantoprazole (Protonix) 40 mg EVERY 12 HOURS ORAL 10/09/16 21:00 11/08/16 20:59 10/13/16 08:39 Polyethylene Glycol (Miralax) 17 gm DAILYPRN PRN ORAL Constipation 10/07/16 19:45 11/06/16 19:44 Potassium Chloride/Sodium Chloride (KCl/Sodium Chloride 1000ml bag) 1,015 ml @ 75 mls/hr [id number] IV 10/12/16 12:00 11/11/16 11:59 10/13/16 01:44 Promethazine HCl/ Codeine (Phenergan with Codeine) 5 ml Q4H PRN ORAL For Cough 10/09/16 16:30 11/08/16 16:29 10/09/16 22:28 Temazepam (Restoril) 15 mg HSPRN PRN ORAL Insomnia 10/07/16 19:45 10/14/16 19:44 EDEN RUIZ M.D. Oct 13, 2016 14:31
[2016-10-13 16:07] VITALS: BP 105/63
[2016-10-13] MEDS: Norco 5mg/325mg tab ORAL PRN (16:14)
[2016-10-13 20:33] VITALS: BP 93/57
[2016-10-14] VITALS: BP 101/65
[2016-10-14] MEDS: DuoNeb 0.5-3(2.5)mg/3ml neb HHN SCH ×6 (03:00→22:48)
[2016-10-14 04:00] VITALS: BP 116/66
[2016-10-14] MEDS: metroNIDAZOLE 500mg tab ORAL SCH ×3 (06:08→21:21)
[2016-10-14] MEDS: Norco 5mg/325mg tab ORAL PRN ×2 (06:11→11:59)
[2016-10-14] MEDS: NovoLOG Insulin Flexpen SUBQ SCH ×8 (06:12→20:48)
--- NOTE | 2016-10-14 07:11 | General Progress Note ---
Assessment/Plan Problem List: (1) Diabetes mellitus out of control ICD Codes: E11.65 - Type 2 diabetes mellitus with hyperglycemia SNOMED: 397477987 (2) Lung mass ICD Codes: R91.8 - Other nonspecific abnormal finding of lung field SNOMED: 928741325 (3) Cachectic ICD Codes: R64 - Cachexia SNOMED: 032204414 (4) COPD (chronic obstructive pulmonary disease) ICD Codes: J44.9 - Chronic obstructive pulmonary disease, unspecified SNOMED: 71852453 Assessment/Plan patient refused Levemir 20 units last night => this morning glucose is elevated A1c is extremely elevated at 14.7% => proves poorly controlled diabetes as OP continue Levemir 20 units bid continue Novolog 8 units ac tid Subjective Allergies: Coded Allergies: No Known Allergies (Unverified , 12/17/15) All Systems: reviewed and negative except above Subjective events noted - interval notes reviewed Objective Last 24 Hour Vital Signs Date Time Temp Pulse Resp B/P Pulse Ox O2 Delivery O2 Flow Rate FiO2 10/14/16 06:41 62 18 100 Room Air 10/14/16 06:36 60 18 96 Room Air 10/14/16 04:00 97.9 69 18 116/66 99 Room Air 10/14/16 03:29 Room Air 10/14/16 03:28 Room Air 10/14/16 00:00 97.9 86 18 101/65 96 Room Air 10/13/16 23:18 Room Air 10/13/16 23:18 Room Air 10/13/16 20:33 97.7 88 18 93/57 98 Room Air 10/13/16 19:28 85 18 99 Room Air 10/13/16 19:09 83 18 96 Room Air 10/13/16 19:09 86 14 Room Air 10/13/16 17:13 97.7 10/13/16 16:07 97.7 73 19 105/63 99 Room Air 10/13/16 15:45 69 18 98 Room Air 10/13/16 15:36 67 18 97 Room Air 10/13/16 12:37 98.2 69 20 111/76 100 Room Air 10/13/16 11:46 70 14 99 Room Air 10/13/16 11:39 65 16 100 Room Air 10/13/16 08:20 98.6 69 20 101/67 98 Room Air Intake and Output 10/13/16 10/14/16 19:00 07:00 Intake Total 730 ml 1845 ml Balance 730 ml 1845 ml Intake Oral 480 ml 1040 ml IV Total 250 ml 805 ml # Voids 2 6 Laboratory Tests 10/13/16 11:15: White Blood Count 8.6, Red Blood Count 3.31L, Hemoglobin 11.6L, Hematocrit 35.0L , Mean Corpuscular Volume 106H, Mean Corpuscular Hemoglobin 35.0H, Mean Corpuscular Hemoglobin Concent 33.2, Red Cell Distribution Width 11.6, Platelet Count 221, Mean Platelet Volume 7.2, Neutrophils (%) (Auto) 60.5, Lymphocytes (% ) (Auto) 26.2, Monocytes (%) (Auto) 11.7H, Eosinophils (%) (Auto) 0.2, Basophils (%) (Auto) 1.4, Sodium Level 135, Potassium Level 5.0H, Chloride Level 95L, Carbon Dioxide Level 22, Anion Gap 18H, Blood Urea Nitrogen 5L, Creatinine 0.6L, Estimat Glomerular Filtration Rate > 60, Glucose Level 325H, Hemoglobin A1c 14.7H, Calcium Level 8.9, Phosphorus Level 3.9, Magnesium Level 1.6L, Total Bilirubin 0.2, Aspartate Amino Transf (AST/SGOT) 18, Alanine Aminotransferase (ALT/SGPT) 18, Alkaline Phosphatase 136H, Total Protein 6.4L, Albumin 3.2L, Globulin 3.2, Albumin/Globulin Ratio 1.0 Height (Feet): 6 Height (Inches): 2.00 Weight (Pounds): 132 General Appearance: no apparent distress EENT: pale conjunctivae Neck: normal alignment Cardiovascular: normal rate Respiratory/Chest: normal breath sounds Abdomen: normal bowel sounds Edema: no edema noted Arm (L), no edema noted Arm (R), no edema noted Leg (L), no edema noted Leg (R), no edema noted Pedal (L), no edema noted Pedal (R), no edema noted Generalized Objective Current Medications Medications (Trade) Dose Ordered Sig/Suzette Route PRN Reason Start Time Stop Time Status Last Admin Dose Admin Acetaminophen (Tylenol) 650 mg Q4H PRN ORAL fever 10/07/16 19:45 11/06/16 19:44 10/08/16 14:29 Acetaminophen/ Hydrocodone Bitart ([place] 5/325) 1 tab Q4H PRN ORAL Moderate Pain (Pain Scale 4-6) 10/08/16 18:15 10/15/16 18:14 10/14/16 06:11 Albuterol/ Ipratropium (DuoNeb 0.5-3(2.5)mg/3ml) 3 ml Q4HRT HHN 10/12/16 23:00 10/17/16 22:59 10/14/16 06:55 Cefepime HCl/ Dextrose (Maxipime/D5W) 55 ml @ 110 mls/hr EVERY 12 HOURS IV 10/07/16 21:00 10/14/16 20:59 10/13/16 21:19 Dextrose (Dextrose 50%) STAT PRN IV Hypoglycemia 10/07/16 19:45 11/06/16 19:44 10/12/16 17:13 Diphenoxylate HCl/ Atropine (Lomotil) 2.5 mg Q4H PRN ORAL Diarrhea 10/12/16 10:30 10/19/16 10:29 Heparin Sodium (Porcine) (Heparin 5000 units/ml) 5,000 units EVERY 12 HOURS SUBQ 10/07/16 21:00 11/06/16 20:59 10/13/16 21:18 Insulin Aspart (NovoLOG) BEFORE MEALS AND HS SUBQ 10/07/16 21:00 11/06/16 20:59 10/14/16 06:16 Insulin Aspart (NovoLOG) 8 units NOVOTIAC SUBQ 10/13/16 11:50 11/12/16 11:49 10/14/16 06:12 Insulin Detemir (Levemir) 20 units Q12HR SUBQ 10/13/16 21:00 11/12/16 20:59 Metronidazole 500 mg 500 mg Q8HR ORAL 10/10/16 14:00 10/17/16 13:59 10/14/16 06:08 Nitroglycerin (Ntg) 0.4 mg Q5MIN X 3 DOSES PRN SL Prn Chest Pain 10/07/16 19:45 11/06/16 19:44 Ondansetron HCl (Zofran) 4 mg Q6H PRN IVP Nausea & Vomiting 10/07/16 19:45 11/06/16 19:44 10/13/16 20:13 Pantoprazole (Protonix) 40 mg EVERY 12 HOURS ORAL 10/09/16 21:00 11/08/16 20:59 10/13/16 21:15 Polyethylene Glycol (Miralax) 17 gm DAILYPRN PRN ORAL Constipation 10/07/16 19:45 11/06/16 19:44 Potassium Chloride/Sodium Chloride (KCl/Sodium Chloride 1000ml bag) 1,015 ml @ 75 mls/hr [id number] IV 10/12/16 12:00 11/11/16 11:59 10/14/16 06:08 Promethazine HCl/ Codeine (Phenergan with Codeine) 5 ml Q4H PRN ORAL For Cough 10/09/16 16:30 11/08/16 16:29 10/09/16 22:28 Temazepam (Restoril) 15 mg HSPRN PRN ORAL Insomnia 10/07/16 19:45 10/14/16 19:44 Item Value Date Time Bedside Blood Glucose 301 mg/dl H 10/14/16 0623 Bedside Blood Glucose 135 mg/dl H 10/13/16 2134 Bedside Blood Glucose 271 mg/dl H 10/13/16 1635 Bedside Blood Glucose 311 mg/dl H 10/13/16 1209 Bedside Blood Glucose 311 mg/dl H 10/13/16 0838 Bedside Blood Glucose 248 mg/dl H 10/13/16 0630 CIPRIANO SILVER Oct 14, 2016 07:11
[2016-10-14 08:19] VITALS: BP 121/74
[2016-10-14] MEDS: Cefepime HCl 1 GM in D5W 55 ML IV SCH ×2 (08:52→21:00)
[2016-10-14] MEDS: Heparin 5000 units/ml inj SUBQ SCH ×2 (08:58→20:38)
[2016-10-14] MEDS: Levemir Flexpen SUBQ SCH ×3 (08:59→20:45)
[2016-10-14] MEDS ORDERED: Lidocaine 1% Plain 30 ml INJ PRN (11:15)
[2016-10-14 11:59] VITALS: BP 96/55
[2016-10-14] MEDS: Lomotil 2.5mg tab ORAL PRN ×2 (11:59→20:36)
--- NOTE | 2016-10-14 13:01 | Brief Operative Note ---
Immediate Post Operative Note Operative Note Chief Complaint: pneumonia Pre-op Diagnosis: lung masses Procedure: CT guided lung bx Post-op Diagnosis: same as pre-op Findings: consistent w/pre-op dx studies Surgeon: Rachel AGUILAR Anesthesia: local Specimen: yes - 4 18 G cores Complications: none Condition: stable Implant(s) used?: No BABAR AGUILAR M.D. Oct 14, 2016 13:01
--- NOTE | 2016-10-14 13:34 | General Progress Note ---
Assessment/Plan Status: stable Assessment/Plan status; Proteinuria- HypoNatremia- HypoKalemia- HypoPhosphatemia HyperGlycemia Elevated Cancer Markers ( CEA and CA19-9) Pneumonia COPD Cachexia Plan: resume IV NS +KCL K and Na and Phos replacement as needed BS control Monitor renal parameters- Urine studies- GI FU - Lomotil prn per order Subjective ROS Limited/Unobtainable: No Constitutional: Reports: malaise Gastrointestinal/Abdominal: Reports: diarrhea Allergies: Coded Allergies: No Known Allergies (Unverified , 12/17/15) Objective Last 24 Hour Vital Signs Date Time Temp Pulse Resp B/P Pulse Ox O2 Delivery O2 Flow Rate FiO2 10/14/16 11:59 97.5 64 20 96/55 100 Room Air 10/14/16 11:12 74 18 100 Room Air 10/14/16 11:06 73 18 96 Room Air 21 10/14/16 08:19 98.0 73 20 121/74 95 Room Air 10/14/16 07:16 97.9 10/14/16 06:41 62 18 100 Room Air 21 10/14/16 06:36 60 18 96 Room Air 21 10/14/16 04:00 97.9 69 18 116/66 99 Room Air 10/14/16 03:29 Room Air 10/14/16 03:28 Room Air 10/14/16 00:00 97.9 86 18 101/65 96 Room Air 10/13/16 23:18 Room Air 10/13/16 23:18 Room Air 10/13/16 20:33 97.7 88 18 93/57 98 Room Air 10/13/16 19:28 85 18 99 Room Air 21 10/13/16 19:09 83 18 96 Room Air 21 10/13/16 19:09 86 14 Room Air 10/13/16 16:07 97.7 73 19 105/63 99 Room Air 10/13/16 15:45 69 18 98 Room Air 10/13/16 15:36 67 18 97 Room Air 21 Intake and Output 10/13/16 10/14/16 19:00 07:00 Intake Total 730 ml 1920 ml Balance 730 ml 1920 ml Intake Oral 480 ml 1040 ml IV Total 250 ml 880 ml # Voids 2 6 Height (Feet): 6 Height (Inches): 2.00 Weight (Pounds): 132 General Appearance: no apparent distress Cardiovascular: regular rhythm Respiratory/Chest: decreased breath sounds Abdomen: soft Objective other PE not changed EMELINA STOVER Oct 14, 2016 13:34
[2016-10-14 16:04] VITALS: BP 127/78
--- NOTE | 2016-10-14 18:37 | Infectious Diseases Prog Note ---
Assessment/Plan Assessment/Plan ASSESSMENT: 51 y/o male with: // RLL PNA - SCx, : ( Nl Fl and yeast colonizer ) - CXR 10/07: Right basilar pneumonia suspected - h/o right empyema SP VATS // Periodontal disease // Acute leukocytosis - SP // HIV , Flu : Neg // Blood Cx : PSA // Diarrhea // CT: Bilateral patchy and reticular borderline masslike opacities. and mediastinal lymphadenopathy , concern for neoplastic process. SP CT guided lung bx 10/14 // Deep vein thrombosis // CA-19. CEA : elevated // Unintentional weigh loss / cachexia - h/o PPD(-) // Chronic pancreatitis // Tobacco abuse // NKDA // Full Code PLAN: - continue cefepime d# 7 / , Flagyl d# 6 , ( 10/13 SP azithromycin d# 5 / ) - f/u cultures ( stool ) - monitor CBC, temperatures - monitor BMP - monitor CXR Subjective Constitutional: Denies: anorexia, chills, drenching sweats, fatigue, fever, no symptoms, other Allergies: Coded Allergies: No Known Allergies (Unverified , 12/17/15) Objective Vital Signs Last 24 Hour Vital Signs Date Time Temp Pulse Resp B/P Pulse Ox O2 Delivery O2 Flow Rate FiO2 10/14/16 16:04 97.9 80 18 127/78 98 Room Air 10/14/16 14:55 76 18 100 Room Air 10/14/16 14:50 74 18 96 Room Air 21 10/14/16 11:59 97.5 64 20 96/55 100 Room Air 10/14/16 11:12 74 18 100 Room Air 21 10/14/16 11:06 73 18 96 Room Air 21 10/14/16 08:19 98.0 73 20 121/74 95 Room Air 10/14/16 07:16 97.9 10/14/16 06:41 62 18 100 Room Air 21 10/14/16 06:36 60 18 96 Room Air 21 10/14/16 04:00 97.9 69 18 116/66 99 Room Air 10/14/16 03:29 Room Air 10/14/16 03:28 Room Air 10/14/16 00:00 97.9 86 18 101/65 96 Room Air 10/13/16 23:18 Room Air 10/13/16 23:18 Room Air 10/13/16 20:33 97.7 88 18 93/57 98 Room Air 10/13/16 19:28 85 18 99 Room Air 21 10/13/16 19:09 83 18 96 Room Air 21 10/13/16 19:09 86 14 Room Air Height (Feet): 6 Height (Inches): 2.00 Weight (Pounds): 132 HEENT: atraumatic Respiratory/Chest: lungs clear, no respiratory distress Cardiovascular: regular rhythm Abdomen: non distended Current Medications Medications (Trade) Dose Ordered Sig/Suzette Route PRN Reason Start Time Stop Time Status Last Admin Dose Admin Acetaminophen (Tylenol) 650 mg Q4H PRN ORAL fever 10/07/16 19:45 11/06/16 19:44 10/08/16 14:29 Acetaminophen/ Hydrocodone Bitart ([place] 5/325) 1 tab Q4H PRN ORAL Moderate Pain (Pain Scale 4-6) 10/08/16 18:15 10/15/16 18:14 10/14/16 11:59 Albuterol/ Ipratropium (DuoNeb 0.5-3(2.5)mg/3ml) 3 ml Q4HRT HHN 10/12/16 23:00 10/17/16 22:59 10/14/16 14:59 Cefepime HCl/ Dextrose (Maxipime/D5W) 55 ml @ 110 mls/hr EVERY 12 HOURS IV 10/07/16 21:00 10/18/16 08:59 10/14/16 08:52 Dextrose (Dextrose 50%) STAT PRN IV Hypoglycemia 10/07/16 19:45 11/06/16 19:44 10/12/16 17:13 Diphenoxylate HCl/ Atropine (Lomotil) 2.5 mg Q4H PRN ORAL Diarrhea 10/12/16 10:30 10/19/16 10:29 10/14/16 11:59 Heparin Sodium (Porcine) (Heparin 5000 units/ml) 5,000 units EVERY 12 HOURS SUBQ 10/07/16 21:00 11/06/16 20:59 10/14/16 08:58 Insulin Aspart (NovoLOG) BEFORE MEALS AND HS SUBQ 10/07/16 21:00 11/06/16 20:59 10/14/16 16:39 Insulin Aspart (NovoLOG) 8 units NOVOTIAC SUBQ 10/13/16 11:50 11/12/16 11:49 10/14/16 16:39 Insulin Detemir (Levemir) 20 units Q12HR SUBQ 10/13/16 21:00 11/12/16 20:59 10/14/16 08:59 Metronidazole 500 mg 500 mg Q8HR ORAL 10/10/16 14:00 10/17/16 13:59 10/14/16 13:39 Nitroglycerin (Ntg) 0.4 mg Q5MIN X 3 DOSES PRN SL Prn Chest Pain 10/07/16 19:45 11/06/16 19:44 Ondansetron HCl (Zofran) 4 mg Q6H PRN IVP Nausea & Vomiting 10/07/16 19:45 11/06/16 19:44 10/13/16 20:13 Pantoprazole (Protonix) 40 mg EVERY 12 HOURS ORAL 10/09/16 21:00 11/08/16 20:59 10/14/16 08:52 Polyethylene Glycol (Miralax) 17 gm DAILYPRN PRN ORAL Constipation 10/07/16 19:45 11/06/16 19:44 Potassium Chloride/Sodium Chloride (KCl/Sodium Chloride 1000ml bag) 1,015 ml @ 75 mls/hr [id number] IV 10/12/16 12:00 11/11/16 11:59 10/14/16 06:08 Promethazine HCl/ Codeine (Phenergan with Codeine) 5 ml Q4H PRN ORAL For Cough 10/09/16 16:30 11/08/16 16:29 10/09/16 22:28 Temazepam (Restoril) 15 mg HSPRN PRN ORAL Insomnia 10/07/16 19:45 10/14/16 19:44 EDEN RUIZ M.D. Oct 14, 2016 18:37
--- NOTE | 2016-10-14 19:10 | General Progress Note ---
Assessment/Plan Assessment/Plan ASSESSMENT: 1. Bilateral pulmonary masses/opacities - concerning for malignancy, s/p ct- guided biopsy 2. Elevated tumor markers CEA and CA-99. Likely related to lung metastatic dz 3. Anemia secondary to chronic disease. Ferritin is elevated 4. Cachexia, malnourishment, and weight loss. 5. Thrombocytopenia, potentially concerning for infection. 6. Leukocytosis, mild. 7. Pneumonia been treated with abx 8. COPD RECOMMENDATIONS: 1. s/p lung biopsy 10/14/16 2. CAT scan imaging reviewed 3. GI ppx with ppi 4. DVT px with heparin sq 5. Antibiotics as needed. 6. Followup on Endocrinology, Pulmonary, Nephrology recs 7. Blood sugar control. 8. Staff Thank you, Kee Nick MD Subjective Constitutional: Reports: no symptoms HEENT: Reports: no symptoms Cardiovascular: Reports: no symptoms Respiratory: Reports: no symptoms Gastrointestinal/Abdominal: Reports: poor appetite Genitourinary: Reports: no symptoms Neurologic/Psychiatric: Reports: no symptoms Endocrine: Reports: no symptoms Hematologic/Lymphatic: Reports: anemia Allergies: Coded Allergies: No Known Allergies (Unverified , 12/17/15) Subjective stable, no events overnight, no fevers reported, is somewhat unhappy in the am, wants to eat breakfast Objective Last 24 Hour Vital Signs Date Time Temp Pulse Resp B/P Pulse Ox O2 Delivery O2 Flow Rate FiO2 10/14/16 16:04 97.9 80 18 127/78 98 Room Air 10/14/16 14:55 76 18 100 Room Air 10/14/16 14:50 74 18 96 Room Air 10/14/16 11:59 97.5 64 20 96/55 100 Room Air 10/14/16 11:12 74 18 100 Room Air 10/14/16 11:06 73 18 96 Room Air 21 10/14/16 08:19 98.0 73 20 121/74 95 Room Air 10/14/16 07:16 97.9 10/14/16 06:41 62 18 100 Room Air 10/14/16 06:36 60 18 96 Room Air 10/14/16 04:00 97.9 69 18 116/66 99 Room Air 10/14/16 03:29 Room Air 10/14/16 03:28 Room Air 10/14/16 00:00 97.9 86 18 101/65 96 Room Air 10/13/16 23:18 Room Air 10/13/16 23:18 Room Air 10/13/16 20:33 97.7 88 18 93/57 98 Room Air 10/13/16 19:28 85 18 99 Room Air 21 10/13/16 19:09 83 18 96 Room Air 21 10/13/16 19:09 86 14 Room Air Intake and Output 10/13/16 10/14/16 19:00 07:00 Intake Total 730 ml 1920 ml Balance 730 ml 1920 ml Intake Oral 480 ml 1040 ml IV Total 250 ml 880 ml # Voids 2 6 Height (Feet): 6 Height (Inches): 2.00 Weight (Pounds): 132 General Appearance: no apparent distress EENT: normal ENT inspection Neck: normal alignment Cardiovascular: normal rate Respiratory/Chest: normal breath sounds Abdomen: soft Extremities: non-tender Edema: no edema noted Leg (L), no edema noted Leg (R) Edema: mild edema Neurologic: abnormal gait Skin: normal pigmentation Kee Nick Oct 14, 2016 19:10
[2016-10-14 20:00] VITALS: BP 121/77
--- NOTE | 2016-10-14 22:52 | Pulmonology Progress Note ---
Assessment/Plan Problems: (1) Pneumonia (2) COPD (chronic obstructive pulmonary disease) (3) Cachectic (4) Lung mass (5) Dehydration Assessment/Plan continue antibiotics respiratory treatment malignancy work up K supplement ct guided biopsy of RLL mass was done , awaiting pathology results Subjective ROS Limited/Unobtainable: No Constitutional: Reports: no symptoms Allergies: Coded Allergies: No Known Allergies (Unverified , 12/17/15) Objective Last 24 Hour Vital Signs Date Time Temp Pulse Resp B/P Pulse Ox O2 Delivery O2 Flow Rate FiO2 10/14/16 20:02 72 18 100 Room Air 21 10/14/16 20:00 97.0 103 19 121/77 98 Room Air 10/14/16 19:58 70 18 97 Room Air 10/14/16 16:04 97.9 80 18 127/78 98 Room Air 10/14/16 14:55 76 18 100 Room Air 21 10/14/16 14:50 74 18 96 Room Air 21 10/14/16 11:59 97.5 64 20 96/55 100 Room Air 10/14/16 11:12 74 18 100 Room Air 21 10/14/16 11:06 73 18 96 Room Air 21 10/14/16 08:19 98.0 73 20 121/74 95 Room Air 10/14/16 07:16 97.9 10/14/16 06:41 62 18 100 Room Air 10/14/16 06:36 60 18 96 Room Air 21 10/14/16 04:00 97.9 69 18 116/66 99 Room Air 10/14/16 03:29 Room Air 10/14/16 03:28 Room Air 10/14/16 00:00 97.9 86 18 101/65 96 Room Air 10/13/16 23:18 Room Air 10/13/16 23:18 Room Air Intake and Output 10/13/16 10/14/16 19:00 07:00 Intake Total 730 ml 1920 ml Balance 730 ml 1920 ml Intake Oral 480 ml 1040 ml IV Total 250 ml 880 ml # Voids 2 6 Objective sightly better, CT chest done K supplement d/w radiologist Dr. Mauricio will do a ct guided biopsy of RLL mass General Appearance: WD/WN HEENT: normocephalic Respiratory/Chest: chest wall non-tender, lungs clear Cardiovascular: normal peripheral pulses, regular rhythm Abdomen: normal bowel sounds Current Medications Medications (Trade) Dose Ordered Sig/Suzette Route PRN Reason Start Time Stop Time Status Last Admin Dose Admin Acetaminophen (Tylenol) 650 mg Q4H PRN ORAL fever 10/07/16 19:45 11/06/16 19:44 10/08/16 14:29 Acetaminophen/ Hydrocodone Bitart ([place] 5/325) 1 tab Q4H PRN ORAL Moderate Pain (Pain Scale 4-6) 10/08/16 18:15 10/15/16 18:14 10/14/16 11:59 Albuterol/ Ipratropium (DuoNeb 0.5-3(2.5)mg/3ml) 3 ml Q4HRT HHN 10/12/16 23:00 10/17/16 22:59 10/14/16 22:48 Cefepime HCl/ Dextrose (Maxipime/D5W) 55 ml @ 110 mls/hr EVERY 12 HOURS IV 10/07/16 21:00 10/18/16 08:59 10/14/16 21:00 Dextrose (Dextrose 50%) STAT PRN IV Hypoglycemia 10/07/16 19:45 11/06/16 19:44 10/12/16 17:13 Diphenoxylate HCl/ Atropine (Lomotil) 2.5 mg Q4H PRN ORAL Diarrhea 10/12/16 10:30 10/19/16 10:29 10/14/16 20:36 Heparin Sodium (Porcine) (Heparin 5000 units/ml) 5,000 units EVERY 12 HOURS SUBQ 10/07/16 21:00 11/06/16 20:59 10/14/16 20:38 Insulin Aspart (NovoLOG) BEFORE MEALS AND HS SUBQ 10/07/16 21:00 11/06/16 20:59 10/14/16 16:39 Insulin Aspart (NovoLOG) 8 units NOVOTIAC SUBQ 10/13/16 11:50 11/12/16 11:49 10/14/16 16:39 Insulin Detemir (Levemir) 20 units Q12HR SUBQ 10/13/16 21:00 11/12/16 20:59 10/14/16 20:45 Metronidazole 500 mg 500 mg Q8HR ORAL 10/10/16 14:00 10/17/16 13:59 10/14/16 21:21 Nitroglycerin (Ntg) 0.4 mg Q5MIN X 3 DOSES PRN SL Prn Chest Pain 10/07/16 19:45 11/06/16 19:44 Ondansetron HCl (Zofran) 4 mg Q6H PRN IVP Nausea & Vomiting 10/07/16 19:45 11/06/16 19:44 10/13/16 20:13 Pantoprazole (Protonix) 40 mg EVERY 12 HOURS ORAL 10/09/16 21:00 11/08/16 20:59 10/14/16 20:36 Polyethylene Glycol (Miralax) 17 gm DAILYPRN PRN ORAL Constipation 10/07/16 19:45 11/06/16 19:44 Potassium Chloride/Sodium Chloride (KCl/Sodium Chloride 1000ml bag) 1,015 ml @ 75 mls/hr [id number] IV 10/12/16 12:00 11/11/16 11:59 10/14/16 06:08 Promethazine HCl/ Codeine (Phenergan with Codeine) 5 ml Q4H PRN ORAL For Cough 10/09/16 16:30 11/08/16 16:29 10/09/16 22:28 GISSELLE DALY Oct 14, 2016 22:52
[2016-10-15] VITALS: BP 105/70
[2016-10-15] MEDS: Lomotil 2.5mg tab ORAL PRN ×3 (02:37→20:02)
[2016-10-15] MEDS: Norco 5mg/325mg tab ORAL PRN ×2 (02:39→06:53)
[2016-10-15] MEDS: DuoNeb 0.5-3(2.5)mg/3ml neb HHN SCH ×6 (03:47→23:15)
[2016-10-15 04:00] VITALS: BP 138/86
[2016-10-15] MEDS: metroNIDAZOLE 500mg tab ORAL SCH (06:00)
[2016-10-15] MEDS: NovoLOG Insulin Flexpen SUBQ SCH ×7 (06:40→20:06)
--- NOTE | 2016-10-15 07:17 | General Progress Note ---
Assessment/Plan Problem List: (1) Diabetes mellitus out of control ICD Codes: E11.65 - Type 2 diabetes mellitus with hyperglycemia SNOMED: 734184823 (2) Lung mass ICD Codes: R91.8 - Other nonspecific abnormal finding of lung field SNOMED: 442106605 (3) Cachectic ICD Codes: R64 - Cachexia SNOMED: 411755678 (4) COPD (chronic obstructive pulmonary disease) ICD Codes: J44.9 - Chronic obstructive pulmonary disease, unspecified SNOMED: 75744895 Assessment/Plan glycemic control improved continue Levemir 20 units bid continue Novolog 8 units ac tid Subjective Allergies: Coded Allergies: No Known Allergies (Unverified , 12/17/15) All Systems: reviewed and negative except above Subjective events noted - interval notes reviewed Objective Last 24 Hour Vital Signs Date Time Temp Pulse Resp B/P Pulse Ox O2 Delivery O2 Flow Rate FiO2 10/15/16 06:30 71 18 99 Room Air 10/15/16 06:25 70 18 99 Room Air 10/15/16 04:00 98.2 69 18 138/86 98 Room Air 10/15/16 03:49 94 20 99 Room Air 10/15/16 03:47 88 20 97 Room Air 10/15/16 00:00 98.4 91 18 105/70 97 Room Air 10/14/16 22:54 87 18 100 Room Air 10/14/16 22:54 91 18 99 Room Air 10/14/16 20:02 72 18 100 Room Air 10/14/16 20:00 97.0 103 19 121/77 98 Room Air 10/14/16 19:58 70 18 97 Room Air 10/14/16 16:04 97.9 80 18 127/78 98 Room Air 10/14/16 14:55 76 18 100 Room Air 10/14/16 14:50 74 18 96 Room Air 10/14/16 11:59 97.5 64 20 96/55 100 Room Air 10/14/16 11:12 74 18 100 Room Air 10/14/16 11:06 73 18 96 Room Air 10/14/16 08:19 98.0 73 20 121/74 95 Room Air Intake and Output 10/14/16 10/15/16 19:00 07:00 Intake Total 1475 ml 1685 ml Balance 1475 ml 1685 ml Intake Oral 1100 ml 1480 ml IV Total 375 ml 205 ml # Voids 4 8 # Bowel Movements 5 Height (Feet): 6 Height (Inches): 2.00 Weight (Pounds): 132 General Appearance: no apparent distress EENT: pale conjunctivae Neck: normal alignment Cardiovascular: normal rate Respiratory/Chest: decreased breath sounds Abdomen: normal bowel sounds Objective Current Medications Medications (Trade) Dose Ordered Sig/Suzette Route PRN Reason Start Time Stop Time Status Last Admin Dose Admin Acetaminophen (Tylenol) 650 mg Q4H PRN ORAL fever 10/07/16 19:45 11/06/16 19:44 10/08/16 14:29 Acetaminophen/ Hydrocodone Bitart ([place] 5/325) 1 tab Q4H PRN ORAL Moderate Pain (Pain Scale 4-6) 10/08/16 18:15 10/15/16 18:14 10/15/16 06:53 Albuterol/ Ipratropium (DuoNeb 0.5-3(2.5)mg/3ml) 3 ml Q4HRT HHN 10/12/16 23:00 10/17/16 22:59 10/15/16 06:52 Cefepime HCl/ Dextrose (Maxipime/D5W) 55 ml @ 110 mls/hr EVERY 12 HOURS IV 10/07/16 21:00 10/18/16 08:59 10/14/16 21:00 Dextrose (Dextrose 50%) STAT PRN IV Hypoglycemia 10/07/16 19:45 11/06/16 19:44 10/12/16 17:13 Diphenoxylate HCl/ Atropine (Lomotil) 2.5 mg Q4H PRN ORAL Diarrhea 10/12/16 10:30 10/19/16 10:29 10/15/16 06:52 Heparin Sodium (Porcine) (Heparin 5000 units/ml) 5,000 units EVERY 12 HOURS SUBQ 10/07/16 21:00 11/06/16 20:59 10/14/16 20:38 Insulin Aspart (NovoLOG) BEFORE MEALS AND HS SUBQ 10/07/16 21:00 11/06/16 20:59 10/15/16 06:41 Insulin Aspart (NovoLOG) 8 units NOVOTIAC SUBQ 10/13/16 11:50 11/12/16 11:49 10/15/16 06:40 Insulin Detemir (Levemir) 20 units Q12HR SUBQ 10/13/16 21:00 11/12/16 20:59 10/14/16 20:45 Metronidazole 500 mg 500 mg Q8HR ORAL 10/10/16 14:00 10/17/16 13:59 10/15/16 06:00 Nitroglycerin (Ntg) 0.4 mg Q5MIN X 3 DOSES PRN SL Prn Chest Pain 10/07/16 19:45 11/06/16 19:44 Ondansetron HCl (Zofran) 4 mg Q6H PRN IVP Nausea & Vomiting 10/07/16 19:45 11/06/16 19:44 10/13/16 20:13 Pantoprazole (Protonix) 40 mg EVERY 12 HOURS ORAL 10/09/16 21:00 11/08/16 20:59 10/14/16 20:36 Polyethylene Glycol (Miralax) 17 gm DAILYPRN PRN ORAL Constipation 10/07/16 19:45 11/06/16 19:44 Potassium Chloride/Sodium Chloride (KCl/Sodium Chloride 1000ml bag) 1,015 ml @ 75 mls/hr [id number] IV 10/12/16 12:00 11/11/16 11:59 10/15/16 01:39 Promethazine HCl/ Codeine (Phenergan with Codeine) 5 ml Q4H PRN ORAL For Cough 10/09/16 16:30 11/08/16 16:29 10/09/16 22:28 Item Value Date Time Bedside Blood Glucose 260 mg/dl H 10/15/16 0641 Bedside Blood Glucose 144 mg/dl H 10/14/16 2100 Bedside Blood Glucose 188 mg/dl H 10/14/16 1639 Bedside Blood Glucose 179 mg/dl H 10/14/16 1144 Bedside Blood Glucose 250 mg/dl H 10/14/16 0859 Bedside Blood Glucose 301 mg/dl H 10/14/16 0623 CIPRIANO SILVER Oct 15, 2016 07:17
[2016-10-15 08:00] VITALS: BP 106/73
[2016-10-15] MEDS: Cefepime HCl 1 GM in D5W 55 ML IV SCH ×2 (08:33→20:02)
[2016-10-15] MEDS: Heparin 5000 units/ml inj SUBQ SCH ×2 (08:34→20:03)
[2016-10-15] MEDS: Levemir Flexpen SUBQ SCH ×2 (08:45→20:05)
--- NOTE | 2016-10-15 10:06 | Infectious Diseases Prog Note ---
Assessment/Plan Assessment/Plan ASSESSMENT: 51 y/o male with: // RLL PNA - SCx, : ( Nl Fl and yeast colonizer ) - CXR 10/07: Right basilar pneumonia suspected - h/o right empyema SP VATS // Periodontal disease // Acute leukocytosis - SP // HIV , Flu : Neg // Blood Cx : PSA // Diarrhea improved on Lomotil Stool Cx: neg // CT: Bilateral patchy and reticular borderline masslike opacities. and mediastinal lymphadenopathy , concern for neoplastic process. SP CT guided lung bx 10/14 // Deep vein thrombosis // CA-19. CEA : elevated // Unintentional weigh loss / cachexia - h/o PPD(-) // Chronic pancreatitis // Tobacco abuse // NKDA // Full Code PLAN: - continue cefepime d# 8 / 10 , DC Flagyl d# 7 ( 10/13 SP azithromycin d# 5 / ) - f/u cultures ( stool ) - monitor CBC, temperatures - monitor BMP - monitor CXR - lung Bx : P Subjective Constitutional: Denies: anorexia, chills, drenching sweats, fatigue, fever, no symptoms, other Allergies: Coded Allergies: No Known Allergies (Unverified , 12/17/15) Objective Vital Signs Last 24 Hour Vital Signs Date Time Temp Pulse Resp B/P Pulse Ox O2 Delivery O2 Flow Rate FiO2 10/15/16 08:00 98.2 75 18 106/73 98 Room Air 10/15/16 06:30 71 18 99 Room Air 10/15/16 06:25 70 18 99 Room Air 10/15/16 04:00 98.2 69 18 138/86 98 Room Air 10/15/16 03:49 94 20 99 Room Air 10/15/16 03:47 88 20 97 Room Air 10/15/16 00:00 98.4 91 18 105/70 97 Room Air 10/14/16 22:54 87 18 100 Room Air 10/14/16 22:54 91 18 99 Room Air 10/14/16 20:02 72 18 100 Room Air 10/14/16 20:00 97.0 103 19 121/77 98 Room Air 10/14/16 19:58 70 18 97 Room Air 10/14/16 16:04 97.9 80 18 127/78 98 Room Air 10/14/16 14:55 76 18 100 Room Air 21 10/14/16 14:50 74 18 96 Room Air 21 10/14/16 11:59 97.5 64 20 96/55 100 Room Air 10/14/16 11:12 74 18 100 Room Air 21 10/14/16 11:06 73 18 96 Room Air 21 Height (Feet): 6 Height (Inches): 2.00 Weight (Pounds): 132 HEENT: anicteric Respiratory/Chest: normal breath sounds Cardiovascular: regular rhythm Abdomen: non distended Current Medications Medications (Trade) Dose Ordered Sig/Suzette Route PRN Reason Start Time Stop Time Status Last Admin Dose Admin Acetaminophen (Tylenol) 650 mg Q4H PRN ORAL fever 10/07/16 19:45 11/06/16 19:44 10/08/16 14:29 Acetaminophen/ Hydrocodone Bitart ([place] 5/325) 1 tab Q4H PRN ORAL Moderate Pain (Pain Scale 4-6) 10/08/16 18:15 10/15/16 18:14 10/15/16 06:53 Albuterol/ Ipratropium (DuoNeb 0.5-3(2.5)mg/3ml) 3 ml Q4HRT HHN 10/12/16 23:00 10/17/16 22:59 10/15/16 06:52 Cefepime HCl/ Dextrose (Maxipime/D5W) 55 ml @ 110 mls/hr EVERY 12 HOURS IV 10/07/16 21:00 10/18/16 08:59 10/15/16 08:33 Dextrose (Dextrose 50%) STAT PRN IV Hypoglycemia 10/07/16 19:45 11/06/16 19:44 10/12/16 17:13 Diphenoxylate HCl/ Atropine (Lomotil) 2.5 mg Q4H PRN ORAL Diarrhea 10/12/16 10:30 10/19/16 10:29 10/15/16 06:52 Heparin Sodium (Porcine) (Heparin 5000 units/ml) 5,000 units EVERY 12 HOURS SUBQ 10/07/16 21:00 11/06/16 20:59 10/15/16 08:34 Insulin Aspart (NovoLOG) BEFORE MEALS AND HS SUBQ 10/07/16 21:00 11/06/16 20:59 10/15/16 06:41 Insulin Aspart (NovoLOG) 8 units NOVOTIAC SUBQ 10/13/16 11:50 11/12/16 11:49 10/15/16 06:40 Insulin Detemir (Levemir) 20 units Q12HR SUBQ 10/13/16 21:00 11/12/16 20:59 10/15/16 08:45 Metronidazole 500 mg 500 mg Q8HR ORAL 10/10/16 14:00 10/17/16 13:59 10/15/16 06:00 Nitroglycerin (Ntg) 0.4 mg Q5MIN X 3 DOSES PRN SL Prn Chest Pain 10/07/16 19:45 11/06/16 19:44 Ondansetron HCl (Zofran) 4 mg Q6H PRN IVP Nausea & Vomiting 10/07/16 19:45 11/06/16 19:44 10/13/16 20:13 Pantoprazole (Protonix) 40 mg EVERY 12 HOURS ORAL 10/09/16 21:00 11/08/16 20:59 10/15/16 08:33 Polyethylene Glycol (Miralax) 17 gm DAILYPRN PRN ORAL Constipation 10/07/16 19:45 11/06/16 19:44 Potassium Chloride/Sodium Chloride (KCl/Sodium Chloride 1000ml bag) 1,015 ml @ 75 mls/hr [id number] IV 10/12/16 12:00 11/11/16 11:59 10/15/16 01:39 Promethazine HCl/ Codeine (Phenergan with Codeine) 5 ml Q4H PRN ORAL For Cough 10/09/16 16:30 11/08/16 16:29 10/09/16 22:28 EDEN RUIZ M.D. Oct 15, 2016 10:06
[2016-10-15 12:17] VITALS: BP 110/69
--- NOTE | 2016-10-15 13:37 | General Progress Note ---
Assessment/Plan Status: stable Assessment/Plan status; Proteinuria- HypoNatremia- HypoKalemia- HypoPhosphatemia HyperGlycemia Elevated Cancer Markers ( CEA and CA19-9) Pneumonia COPD Cachexia Plan: no labs today, will order resume IV NS +KCL K and Na and Phos replacement as needed BS control Monitor renal parameters- Urine studies- GI FU - Lomotil prn per order Subjective ROS Limited/Unobtainable: No Allergies: Coded Allergies: No Known Allergies (Unverified , 12/17/15) Objective Last 24 Hour Vital Signs Date Time Temp Pulse Resp B/P Pulse Ox O2 Delivery O2 Flow Rate FiO2 10/15/16 12:17 98.0 68 18 110/69 97 Room Air 10/15/16 10:41 78 18 99 Room Air 21 10/15/16 10:37 77 18 97 Room Air 21 10/15/16 08:00 98.2 75 18 106/73 98 Room Air 10/15/16 06:30 71 18 99 Room Air 21 10/15/16 06:25 70 18 99 Room Air 21 10/15/16 04:00 98.2 69 18 138/86 98 Room Air 10/15/16 03:49 94 20 99 Room Air 21 10/15/16 03:47 88 20 97 Room Air 21 10/15/16 00:00 98.4 91 18 105/70 97 Room Air 10/14/16 22:54 87 18 100 Room Air 21 10/14/16 22:54 91 18 99 Room Air 21 10/14/16 20:02 72 18 100 Room Air 21 10/14/16 20:00 97.0 103 19 121/77 98 Room Air 10/14/16 19:58 70 18 97 Room Air 21 10/14/16 16:04 97.9 80 18 127/78 98 Room Air 10/14/16 14:55 76 18 100 Room Air 21 10/14/16 14:50 74 18 96 Room Air 21 Intake and Output 10/14/16 10/15/16 19:00 07:00 Intake Total 1475 ml 2210 ml Balance 1475 ml 2210 ml Intake Oral 1100 ml 1480 ml IV Total 375 ml 730 ml # Voids 4 8 # Bowel Movements 5 Height (Feet): 6 Height (Inches): 2.00 Weight (Pounds): 132 General Appearance: no apparent distress Objective other PE not changed FOULADIAN,EMELINA Oct 15, 2016 13:37
[2016-10-15 16:05] VITALS: BP 103/78
[2016-10-15 20:30] VITALS: BP 126/65
--- NOTE | 2016-10-15 21:53 | General Progress Note ---
Assessment/Plan Assessment/Plan ASSESSMENT: 1. Bilateral pulmonary masses/opacities - concerning for malignancy, s/p ct- guided biopsy --> results pending 2. Elevated tumor markers CEA and CA-99. Likely related to lung metastatic dz 3. Anemia secondary to chronic disease. Ferritin is elevated 4. Cachexia, malnourishment, and weight loss. 5. Thrombocytopenia, potentially concerning for infection. 6. Leukocytosis, mild. 7. Pneumonia been treated with abx 8. COPD RECOMMENDATIONS: 1. s/p lung biopsy 10/14/16 --> await results 2. CAT scan imaging reviewed 3. GI ppx with ppi 4. DVT px with heparin sq 5. Antibiotics as needed. 6. Followup on Endocrinology, Pulmonary, Renal recs 7. Blood sugar control. 8. Staff Thank you, Kee Nick MD Subjective Constitutional: Reports: no symptoms HEENT: Reports: no symptoms Cardiovascular: Reports: no symptoms Respiratory: Reports: no symptoms Gastrointestinal/Abdominal: Reports: poor appetite Genitourinary: Reports: no symptoms Neurologic/Psychiatric: Reports: no symptoms Endocrine: Reports: no symptoms Hematologic/Lymphatic: Reports: anemia Allergies: Coded Allergies: No Known Allergies (Unverified , 12/17/15) Subjective stable, no events overnight, no fevers reported, awaiting pathology report still Objective Last 24 Hour Vital Signs Date Time Temp Pulse Resp B/P Pulse Ox O2 Delivery O2 Flow Rate FiO2 10/15/16 20:30 97.5 81 18 126/65 97 Room Air 10/15/16 19:28 79 18 97 Room Air 10/15/16 19:27 87 18 96 Room Air 10/15/16 16:05 97.3 79 19 103/78 95 10/15/16 14:35 72 18 99 Room Air 10/15/16 14:30 70 18 97 Room Air 10/15/16 12:17 98.0 68 18 110/69 97 Room Air 10/15/16 10:41 78 18 99 Room Air 10/15/16 10:37 77 18 97 Room Air 10/15/16 08:00 98.2 75 18 106/73 98 Room Air 10/15/16 06:30 71 18 99 Room Air 10/15/16 06:25 70 18 99 Room Air 10/15/16 04:00 98.2 69 18 138/86 98 Room Air 10/15/16 03:49 94 20 99 Room Air 21 10/15/16 03:47 88 20 97 Room Air 21 10/15/16 00:00 98.4 91 18 105/70 97 Room Air 10/14/16 22:54 87 18 100 Room Air 21 10/14/16 22:54 91 18 99 Room Air 21 Intake and Output 10/14/16 10/15/16 19:00 07:00 Intake Total 1475 ml 2210 ml Balance 1475 ml 2210 ml Intake Oral 1100 ml 1480 ml IV Total 375 ml 730 ml # Voids 4 8 # Bowel Movements 5 Height (Feet): 6 Height (Inches): 2.00 Weight (Pounds): 132 General Appearance: no apparent distress EENT: normal ENT inspection Neck: normal inspection Cardiovascular: regular rhythm Respiratory/Chest: normal breath sounds Abdomen: no organomegaly Extremities: non-tender Edema: 1+ Leg (L), 1+ Leg (R) Edema: mild edema Neurologic: alert Skin: warm/dry Kee Nick Oct 15, 2016 21:53
--- NOTE | 2016-10-15 23:29 | Pulmonology Progress Note ---
Assessment/Plan Problems: (1) Pneumonia (2) COPD (chronic obstructive pulmonary disease) (3) Cachectic (4) Lung mass (5) Dehydration Assessment/Plan continue antibiotics respiratory treatment malignancy work up K supplement ct guided biopsy of RLL mass was done , awaiting pathology results Subjective ROS Limited/Unobtainable: No Constitutional: Reports: no symptoms HEENT: Repors: no symptoms Respiratory: Reports: wheezing Allergies: Coded Allergies: No Known Allergies (Unverified , 12/17/15) Objective Last 24 Hour Vital Signs Date Time Temp Pulse Resp B/P Pulse Ox O2 Delivery O2 Flow Rate FiO2 10/15/16 23:17 84 18 99 Room Air 21 10/15/16 23:17 84 18 99 Room Air 21 10/15/16 20:30 97.5 81 18 126/65 97 Room Air 10/15/16 19:28 79 18 97 Room Air 10/15/16 19:27 87 18 96 Room Air 10/15/16 16:05 97.3 79 19 103/78 95 10/15/16 14:35 72 18 99 Room Air 21 10/15/16 14:30 70 18 97 Room Air 21 10/15/16 12:17 98.0 68 18 110/69 97 Room Air 10/15/16 10:41 78 18 99 Room Air 21 10/15/16 10:37 77 18 97 Room Air 10/15/16 08:00 98.2 75 18 106/73 98 Room Air 10/15/16 06:30 71 18 99 Room Air 10/15/16 06:25 70 18 99 Room Air 21 10/15/16 04:00 98.2 69 18 138/86 98 Room Air 10/15/16 03:49 94 20 99 Room Air 21 10/15/16 03:47 88 20 97 Room Air 21 10/15/16 00:00 98.4 91 18 105/70 97 Room Air Intake and Output 10/14/16 10/15/16 19:00 07:00 Intake Total 1475 ml 2210 ml Balance 1475 ml 2210 ml Intake Oral 1100 ml 1480 ml IV Total 375 ml 730 ml # Voids 4 8 # Bowel Movements 5 Objective sightly better, CT chest done K supplement d/w radiologist Dr. Mauricio will do a ct guided biopsy of RLL mass HEENT: normocephalic Respiratory/Chest: chest wall non-tender, lungs clear Cardiovascular: normal peripheral pulses, normal rate Abdomen: normal bowel sounds, soft, non tender Microbiology Date/Time Source Procedure Growth Status 10/14/16 15:00 Lung Right Gram Stain - Final Resulted 10/14/16 15:00 Lung Right Aerobic Culture Pending Resulted Current Medications Medications (Trade) Dose Ordered Sig/Suzette Route PRN Reason Start Time Stop Time Status Last Admin Dose Admin Acetaminophen (Tylenol) 650 mg Q4H PRN ORAL fever 10/07/16 19:45 11/06/16 19:44 10/08/16 14:29 Albuterol/ Ipratropium (DuoNeb 0.5-3(2.5)mg/3ml) 3 ml Q4HRT HHN 10/12/16 23:00 10/17/16 22:59 10/15/16 23:15 Cefepime HCl/ Dextrose (Maxipime/D5W) 55 ml @ 110 mls/hr EVERY 12 HOURS IV 10/07/16 21:00 10/18/16 08:59 10/15/16 20:02 Dextrose (Dextrose 50%) STAT PRN IV Hypoglycemia 10/07/16 19:45 11/06/16 19:44 10/12/16 17:13 Diphenoxylate HCl/ Atropine (Lomotil) 2.5 mg Q4H PRN ORAL Diarrhea 10/12/16 10:30 10/19/16 10:29 10/15/16 20:02 Heparin Sodium (Porcine) (Heparin 5000 units/ml) 5,000 units EVERY 12 HOURS SUBQ 10/07/16 21:00 11/06/16 20:59 10/15/16 20:03 Insulin Aspart (NovoLOG) BEFORE MEALS AND HS SUBQ 10/07/16 21:00 11/06/16 20:59 10/15/16 20:06 Insulin Aspart (NovoLOG) 8 units NOVOTIAC SUBQ 10/13/16 11:50 11/12/16 11:49 10/15/16 17:30 Insulin Detemir (Levemir) 20 units Q12HR SUBQ 10/13/16 21:00 11/12/16 20:59 10/15/16 20:05 Nitroglycerin (Ntg) 0.4 mg Q5MIN X 3 DOSES PRN SL Prn Chest Pain 10/07/16 19:45 11/06/16 19:44 Ondansetron HCl (Zofran) 4 mg Q6H PRN IVP Nausea & Vomiting 10/07/16 19:45 11/06/16 19:44 10/13/16 20:13 Pantoprazole (Protonix) 40 mg EVERY 12 HOURS ORAL 10/09/16 21:00 11/08/16 20:59 10/15/16 20:02 Polyethylene Glycol (Miralax) 17 gm DAILYPRN PRN ORAL Constipation 10/07/16 19:45 11/06/16 19:44 Promethazine HCl/ Codeine (Phenergan with Codeine) 5 ml Q4H PRN ORAL For Cough 10/09/16 16:30 11/08/16 16:29 10/09/16 22:28 GISSELLE DALY Oct 15, 2016 23:29
[2016-10-16 00:33] VITALS: BP 133/73
[2016-10-16] MEDS: DuoNeb 0.5-3(2.5)mg/3ml neb HHN SCH ×5 (03:00→19:00)
[2016-10-16 04:00] VITALS: BP 114/71
[2016-10-16] MEDS: NovoLOG Insulin Flexpen SUBQ SCH ×6 (07:23→17:18)
[2016-10-16 08:18] VITALS: BP 125/84
[2016-10-16 08:18] LABS: BASOPHILS % (AUTO) 0.5 % (0.0-2.0); EOSINOPHILS % (AUTO) 0.3 % (0.0-3.0); LYMPHOCYTES % (AUTO) 27.1 % (20.0-45.0); MEAN CORPUSCULAR HEMOGLOBIN 36.4 PG (27.0-31.0); MEAN CORPUSCULAR HGB CONC 33.8 G/DL (32.0-36.0); MEAN CORPUSCULAR VOLUME 108 FL (80-99); MEAN PLATELET VOLUME 6.9 FL (6.5-10.1); MONOCYTES % (AUTO) 5.6 % (1.0-10.0); NEUTROPHILS % (AUTO) 66.4 % (45.0-75.0); PLATELET COUNT 275 K/UL (150-450); RED BLOOD COUNT 2.97 M/UL (4.70-6.10); RED CELL DISTRIBUTION WIDTH 12.2 % (11.6-14.8); WHITE BLOOD COUNT 8.6 K/UL (4.8-10.8)
[2016-10-16] MEDS: Cefepime HCl 1 GM in D5W 55 ML IV SCH (08:31)
[2016-10-16 08:37] LABS: ALANINE AMINOTRANSFERASE 17 U/L (3-41); ALBUMIN/GLOBULIN RATIO 0.9 (1.0-2.7); ANION GAP 12 (5-15); ASPARTATE AMINO TRANSFERASE 20 U/L (5-40); CARBON DIOXIDE 29 mEQ/L (20-30); CHLORIDE 95 mEQ/L (98-107); CREATININE 0.7 mg/dL (0.7-1.2); GLOMERULAR FILTRATION RATE > 60 mL/min (>60); HEMOLYSIS 2; MAGNESIUM 1.5 mg/dL (1.7-2.5); PHOSPHORUS 4.5 mg/dL (2.5-4.8); POTASSIUM 4.6 mEQ/L (3.4-4.9); SODIUM 136 mEQ/L (135-145)
[2016-10-16] MEDS: Heparin 5000 units/ml inj SUBQ SCH (08:39)
[2016-10-16] MEDS: Levemir Flexpen SUBQ SCH (08:45)
--- NOTE | 2016-10-16 09:32 | Diagnostic Imaging Report ---
Indication: Status post lung biopsy Technique: One view of the chest Comparison: 10/07/2016 Findings: No pneumothorax is demonstrated. Bilateral parenchymal opacities appear overall similar to the prior study, although that in the left midlung periphery appears somewhat more conspicuous than on the prior exam. The pleural spaces remain clear. Heart size. Impression: No evidence of post biopsy pneumothorax Findings as noted
--- NOTE | 2016-10-16 09:45 | Infectious Diseases Prog Note ---
Assessment/Plan Assessment/Plan ASSESSMENT: 51 y/o male with: // RLL PNA - SCx, : ( Nl Fl and yeast colonizer ) - CXR 10/07: Right basilar pneumonia suspected - h/o right empyema SP VATS // Periodontal disease // Acute leukocytosis - SP // HIV , Flu : Neg // Blood Cx : PSA // Diarrhea improved on Lomotil Stool Cx: neg // CT: Bilateral patchy and reticular borderline masslike opacities. and mediastinal lymphadenopathy , concern for neoplastic process. SP CT guided lung bx 10/14 // Deep vein thrombosis // CA-19. CEA : elevated // Unintentional weigh loss / cachexia - h/o PPD(-) // Chronic pancreatitis // Tobacco abuse // NKDA // Full Code PLAN: - continue cefepime d# 9 / 10 , ( 10/16 SP Flagyl d# 7 ) ( 10/13 SP azithromycin d# 5 / 5 ) - f/u cultures ( stool ) - monitor CBC, temperatures - monitor BMP - monitor CXR - lung Bx : P Subjective Constitutional: Denies: anorexia, chills, drenching sweats, fatigue, fever, no symptoms, other Allergies: Coded Allergies: No Known Allergies (Unverified , 12/17/15) Objective Vital Signs Last 24 Hour Vital Signs Date Time Temp Pulse Resp B/P Pulse Ox O2 Delivery O2 Flow Rate FiO2 10/16/16 08:18 97.4 88 20 125/84 98 Room Air 10/16/16 07:16 72 18 99 Room Air 10/16/16 07:08 65 16 99 Room Air 10/16/16 04:00 98.2 74 19 114/71 95 Room Air 10/16/16 03:14 Room Air 10/16/16 03:13 Room Air 21 10/16/16 00:33 98.2 74 21 133/73 94 Room Air 10/15/16 23:17 84 18 99 Room Air 21 10/15/16 23:17 84 18 99 Room Air 10/15/16 20:30 97.5 81 18 126/65 97 Room Air 10/15/16 19:28 79 18 97 Room Air 21 10/15/16 19:27 87 18 96 Room Air 21 10/15/16 16:05 97.3 79 19 103/78 95 10/15/16 14:35 72 18 99 Room Air 21 10/15/16 14:30 70 18 97 Room Air 21 10/15/16 12:17 98.0 68 18 110/69 97 Room Air 10/15/16 10:41 78 18 99 Room Air 21 10/15/16 10:37 77 18 97 Room Air 21 Height (Feet): 6 Height (Inches): 2.00 Weight (Pounds): 132 HEENT: atraumatic Respiratory/Chest: normal breath sounds Cardiovascular: normal rate Abdomen: non distended Microbiology Date/Time Source Procedure Growth Status 10/14/16 15:00 Lung Right Gram Stain - Final Resulted 10/14/16 15:00 Lung Right Aerobic Culture Pending Resulted Laboratory Tests Test 10/16/16 07:35 White Blood Count 8.6 K/UL (4.8-10.8) Red Blood Count 2.97 M/UL (4.70-6.10) L Hemoglobin 10.8 G/DL (14.2-18.0) L Hematocrit 32.0 % (42.0-52.0) L Mean Corpuscular Volume 108 FL (80-99) H Mean Corpuscular Hemoglobin 36.4 PG (27.0-31.0) H Mean Corpuscular Hemoglobin Concent 33.8 G/DL (32.0-36.0) Red Cell Distribution Width 12.2 % (11.6-14.8) Platelet Count 275 K/UL (150-450) Mean Platelet Volume 6.9 FL (6.5-10.1) Neutrophils (%) (Auto) 66.4 % (45.0-75.0) Lymphocytes (%) (Auto) 27.1 % (20.0-45.0) Monocytes (%) (Auto) 5.6 % (1.0-10.0) Eosinophils (%) (Auto) 0.3 % (0.0-3.0) Basophils (%) (Auto) 0.5 % (0.0-2.0) Sodium Level 136 mEQ/L (135-145) Potassium Level 4.6 mEQ/L (3.4-4.9) Chloride Level 95 mEQ/L (98-107) L Carbon Dioxide Level 29 mEQ/L (20-30) Anion Gap 12 (5-15) Blood Urea Nitrogen 7 mg/dL (7-23) Creatinine 0.7 mg/dL (0.7-1.2) Estimat Glomerular Filtration Rate > 60 mL/min (>60) Glucose Level 271 mg/dL (74-106) H Uric Acid Pending Calcium Level 9.0 mg/dL (8.6-10.2) Phosphorus Level 4.5 mg/dL (2.5-4.8) Magnesium Level 1.5 mg/dL (1.7-2.5) L Total Bilirubin < 0.2 mg/dL (0.0-1.2) Aspartate Amino Transf (AST/SGOT) 20 U/L (5-40) Alanine Aminotransferase (ALT/SGPT) 17 U/L (3-41) Alkaline Phosphatase 125 U/L (40-129) C-Reactive Protein, Quantitative Pending Pro-B-Type Natriuretic Peptide Pending Total Protein 6.0 g/dL (6.6-8.7) L Albumin 2.9 g/dL (3.5-5.2) L Globulin 3.1 g/dL Albumin/Globulin Ratio 0.9 (1.0-2.7) L Current Medications Medications (Trade) Dose Ordered Sig/Suzette Route PRN Reason Start Time Stop Time Status Last Admin Dose Admin Acetaminophen (Tylenol) 650 mg Q4H PRN ORAL fever 10/07/16 19:45 11/06/16 19:44 10/08/16 14:29 Albuterol/ Ipratropium (DuoNeb 0.5-3(2.5)mg/3ml) 3 ml Q4HRT HHN 10/12/16 23:00 10/17/16 22:59 10/16/16 07:08 Cefepime HCl/ Dextrose (Maxipime/D5W) 55 ml @ 110 mls/hr EVERY 12 HOURS IV 10/07/16 21:00 10/18/16 08:59 10/16/16 08:31 Dextrose (Dextrose 50%) STAT PRN IV Hypoglycemia 10/07/16 19:45 11/06/16 19:44 10/12/16 17:13 Diphenoxylate HCl/ Atropine (Lomotil) 2.5 mg Q4H PRN ORAL Diarrhea 10/12/16 10:30 10/19/16 10:29 10/15/16 20:02 Heparin Sodium (Porcine) (Heparin 5000 units/ml) 5,000 units EVERY 12 HOURS SUBQ 10/07/16 21:00 11/06/16 20:59 10/16/16 08:39 Insulin Aspart (NovoLOG) BEFORE MEALS AND HS SUBQ 10/07/16 21:00 11/06/16 20:59 10/16/16 07:24 Insulin Aspart (NovoLOG) 8 units NOVOTIAC SUBQ 10/13/16 11:50 11/12/16 11:49 10/16/16 07:23 Insulin Detemir (Levemir) 20 units Q12HR SUBQ 10/13/16 21:00 11/12/16 20:59 10/16/16 08:45 Nitroglycerin (Ntg) 0.4 mg Q5MIN X 3 DOSES PRN SL Prn Chest Pain 10/07/16 19:45 11/06/16 19:44 Ondansetron HCl (Zofran) 4 mg Q6H PRN IVP Nausea & Vomiting 10/07/16 19:45 11/06/16 19:44 10/13/16 20:13 Pantoprazole (Protonix) 40 mg EVERY 12 HOURS ORAL 10/09/16 21:00 11/08/16 20:59 10/16/16 08:31 Polyethylene Glycol (Miralax) 17 gm DAILYPRN PRN ORAL Constipation 10/07/16 19:45 11/06/16 19:44 Promethazine HCl/ Codeine (Phenergan with Codeine) 5 ml Q4H PRN ORAL For Cough 10/09/16 16:30 11/08/16 16:29 10/09/16 22:28 EDEN RUIZ M.D. Oct 16, 2016 09:45
[2016-10-16 11:35] VITALS: BP 112/74
--- NOTE | 2016-10-16 11:57 | General Progress Note ---
Assessment/Plan Assessment/Plan ASSESSMENT: 1. Bilateral pulmonary masses/opacities - s/p ct-guided biopsy --> discussed with pathologist --> atypical appearing tissue on microscope, per pathologist does not appear to be malignancy, query alveolar proteinosis v atypical infection for which the pathologist will stain biopsy tissue 2. Elevated tumor markers CEA and CA 19.9. Could be 2/2 inflammation, will still f/u on final path report 3. Anemia secondary to chronic disease. Ferritin is elevated 4. Cachexia, malnourishment, and weight loss. 5. Thrombocytopenia, potentially concerning for infection. 6. Leukocytosis, mild. 7. Pneumonia been treated with abx 8. COPD RECOMMENDATIONS: 1. s/p lung biopsy 10/14/16 --> await final tissue results 2. CAT scan imaging reviewed 3. GI ppx with ppi 4. DVT px with heparin sq 5. Antibiotics as needed. 6. Followup on Endocrinology, Pulmonary, Renal recs 7. Staff Thank you, Kee Nick MD Subjective Constitutional: Reports: no symptoms HEENT: Reports: no symptoms Cardiovascular: Reports: no symptoms Respiratory: Reports: no symptoms Gastrointestinal/Abdominal: Reports: poor appetite Genitourinary: Reports: no symptoms Neurologic/Psychiatric: Reports: no symptoms Endocrine: Reports: no symptoms Hematologic/Lymphatic: Reports: anemia Allergies: Coded Allergies: No Known Allergies (Unverified , 12/17/15) Subjective stable, no events overnight, no fevers reported, eating well Objective Last 24 Hour Vital Signs Date Time Temp Pulse Resp B/P Pulse Ox O2 Delivery O2 Flow Rate FiO2 10/16/16 11:38 68 18 100 Room Air 10/16/16 11:35 98.1 78 20 112/74 97 Room Air 10/16/16 11:28 63 16 100 Room Air 10/16/16 08:18 97.4 88 20 125/84 98 Room Air 10/16/16 07:16 72 18 99 Room Air 10/16/16 07:08 65 16 99 Room Air 10/16/16 04:00 98.2 74 19 114/71 95 Room Air 10/16/16 03:14 Room Air 10/16/16 03:13 Room Air 10/16/16 00:33 98.2 74 21 133/73 94 Room Air 10/15/16 23:17 84 18 99 Room Air 10/15/16 23:17 84 18 99 Room Air 21 10/15/16 20:30 97.5 81 18 126/65 97 Room Air 10/15/16 19:28 79 18 97 Room Air 21 10/15/16 19:27 87 18 96 Room Air 21 10/15/16 16:05 97.3 79 19 103/78 95 10/15/16 14:35 72 18 99 Room Air 21 10/15/16 14:30 70 18 97 Room Air 21 10/15/16 12:17 98.0 68 18 110/69 97 Room Air Intake and Output 10/15/16 10/16/16 19:00 07:00 Intake Total 720 ml 600 ml Balance 720 ml 600 ml Intake Oral 720 ml 600 ml # Voids 3 6 # Bowel Movements 2 Laboratory Tests 10/16/16 07:35: White Blood Count 8.6, Red Blood Count 2.97L, Hemoglobin 10.8L, Hematocrit 32.0L , Mean Corpuscular Volume 108H, Mean Corpuscular Hemoglobin 36.4H, Mean Corpuscular Hemoglobin Concent 33.8, Red Cell Distribution Width 12.2, Platelet Count 275, Mean Platelet Volume 6.9, Neutrophils (%) (Auto) 66.4, Lymphocytes (% ) (Auto) 27.1, Monocytes (%) (Auto) 5.6, Eosinophils (%) (Auto) 0.3, Basophils ( %) (Auto) 0.5, Sodium Level 136, Potassium Level 4.6, Chloride Level 95L, Carbon Dioxide Level 29, Anion Gap 12, Blood Urea Nitrogen 7, Creatinine 0.7, Estimat Glomerular Filtration Rate > 60, Glucose Level 271H, Uric Acid [Pending] , Calcium Level 9.0, Phosphorus Level 4.5, Magnesium Level 1.5L, Total Bilirubin < 0.2, Aspartate Amino Transf (AST/SGOT) 20, Alanine Aminotransferase (ALT/SGPT) 17, Alkaline Phosphatase 125, C-Reactive Protein, Quantitative [ Pending], Pro-B-Type Natriuretic Peptide 557H, Total Protein 6.0L, Albumin 2.9L , Globulin 3.1, Albumin/Globulin Ratio 0.9L Height (Feet): 6 Height (Inches): 2.00 Weight (Pounds): 132 General Appearance: no apparent distress EENT: TMs normal Neck: supple Cardiovascular: regular rhythm Respiratory/Chest: normal breath sounds Abdomen: no organomegaly Extremities: non-tender Edema: 1+ Leg (L), 1+ Leg (R) Edema: mild edema Neurologic: no motor/sensory deficits Skin: warm/dry Kee Nick Oct 16, 2016 11:57
--- NOTE | 2016-10-16 13:30 | Pulmonology Progress Note ---
Assessment/Plan Problems: (1) Pneumonia (2) COPD (chronic obstructive pulmonary disease) (3) Cachectic (4) Lung mass (5) Dehydration Assessment/Plan lung biopsy shows no malignancy pt was told to repeat CT chest in a few weeks to make sure that it has totally resolved D/w Lizeth, he thinks that pt got enough antibiotics and can go home without any abx. Subjective ROS Limited/Unobtainable: No Interval Events: no new complains Allergies: Coded Allergies: No Known Allergies (Unverified , 12/17/15) Objective Last 24 Hour Vital Signs Date Time Temp Pulse Resp B/P Pulse Ox O2 Delivery O2 Flow Rate FiO2 10/16/16 11:38 68 18 100 Room Air 21 10/16/16 11:35 98.1 78 20 112/74 97 Room Air 10/16/16 11:28 63 16 100 Room Air 21 10/16/16 08:18 97.4 88 20 125/84 98 Room Air 10/16/16 07:16 72 18 99 Room Air 21 10/16/16 07:08 65 16 99 Room Air 21 10/16/16 04:00 98.2 74 19 114/71 95 Room Air 10/16/16 03:14 Room Air 10/16/16 03:13 Room Air 21 10/16/16 00:33 98.2 74 21 133/73 94 Room Air 10/15/16 23:17 84 18 99 Room Air 21 10/15/16 23:17 84 18 99 Room Air 21 10/15/16 20:30 97.5 81 18 126/65 97 Room Air 10/15/16 19:28 79 18 97 Room Air 21 10/15/16 19:27 87 18 96 Room Air 21 10/15/16 16:05 97.3 79 19 103/78 95 10/15/16 14:35 72 18 99 Room Air 21 10/15/16 14:30 70 18 97 Room Air 21 Intake and Output 10/15/16 10/16/16 19:00 07:00 Intake Total 720 ml 600 ml Balance 720 ml 600 ml Intake Oral 720 ml 600 ml # Voids 3 6 # Bowel Movements 2 Objective sightly better, CT chest done K supplement d/w radiologist Dr. 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, no motor/sensory deficits Microbiology Date/Time Source Procedure Growth Status 10/14/16 15:00 Lung Right Gram Stain - Final Resulted 10/14/16 15:00 Lung Right Aerobic Culture - Preliminary NO GROWTH AFTER 24 HOURS Resulted Laboratory Tests 10/16/16 07:35: White Blood Count 8.6, Red Blood Count 2.97L, Hemoglobin 10.8L, Hematocrit 32.0L , Mean Corpuscular Volume 108H, Mean Corpuscular Hemoglobin 36.4H, Mean Corpuscular Hemoglobin Concent 33.8, Red Cell Distribution Width 12.2, Platelet Count 275, Mean Platelet Volume 6.9, Neutrophils (%) (Auto) 66.4, Lymphocytes (% ) (Auto) 27.1, Monocytes (%) (Auto) 5.6, Eosinophils (%) (Auto) 0.3, Basophils ( %) (Auto) 0.5, Sodium Level 136, Potassium Level 4.6, Chloride Level 95L, Carbon Dioxide Level 29, Anion Gap 12, Blood Urea Nitrogen 7, Creatinine 0.7, Estimat Glomerular Filtration Rate > 60, Glucose Level 271H, Uric Acid [Pending] , Calcium Level 9.0, Phosphorus Level 4.5, Magnesium Level 1.5L, Total Bilirubin < 0.2, Aspartate Amino Transf (AST/SGOT) 20, Alanine Aminotransferase (ALT/SGPT) 17, Alkaline Phosphatase 125, C-Reactive Protein, Quantitative [ Pending], Pro-B-Type Natriuretic Peptide 557H, Total Protein 6.0L, Albumin 2.9L , Globulin 3.1, Albumin/Globulin Ratio 0.9L Current Medications Medications (Trade) Dose Ordered Sig/Suzette Route PRN Reason Start Time Stop Time Status Last Admin Dose Admin Acetaminophen (Tylenol) 650 mg Q4H PRN ORAL fever 10/07/16 19:45 11/06/16 19:44 10/08/16 14:29 Albuterol/ Ipratropium (DuoNeb 0.5-3(2.5)mg/3ml) 3 ml Q4HRT HHN 10/12/16 23:00 10/17/16 22:59 10/16/16 11:28 Cefepime HCl/ Dextrose (Maxipime/D5W) 55 ml @ 110 mls/hr EVERY 12 HOURS IV 10/07/16 21:00 10/18/16 08:59 10/16/16 08:31 Dextrose (Dextrose 50%) STAT PRN IV Hypoglycemia 10/07/16 19:45 11/06/16 19:44 10/12/16 17:13 Diphenoxylate HCl/ Atropine (Lomotil) 2.5 mg Q4H PRN ORAL Diarrhea 10/12/16 10:30 10/19/16 10:29 10/15/16 20:02 Heparin Sodium (Porcine) (Heparin 5000 units/ml) 5,000 units EVERY 12 HOURS SUBQ 10/07/16 21:00 11/06/16 20:59 10/16/16 08:39 Insulin Aspart (NovoLOG) BEFORE MEALS AND HS SUBQ 10/07/16 21:00 11/06/16 20:59 10/16/16 11:43 Insulin Aspart (NovoLOG) 8 units NOVOTIAC SUBQ 10/13/16 11:50 11/12/16 11:49 10/16/16 11:43 Insulin Detemir (Levemir) 20 units Q12HR SUBQ 10/13/16 21:00 11/12/16 20:59 10/16/16 08:45 Nitroglycerin (Ntg) 0.4 mg Q5MIN X 3 DOSES PRN SL Prn Chest Pain 10/07/16 19:45 11/06/16 19:44 Ondansetron HCl (Zofran) 4 mg Q6H PRN IVP Nausea & Vomiting 10/07/16 19:45 11/06/16 19:44 10/13/16 20:13 Pantoprazole (Protonix) 40 mg EVERY 12 HOURS ORAL 10/09/16 21:00 11/08/16 20:59 10/16/16 08:31 Polyethylene Glycol (Miralax) 17 gm DAILYPRN PRN ORAL Constipation 10/07/16 19:45 11/06/16 19:44 Promethazine HCl/ Codeine (Phenergan with Codeine) 5 ml Q4H PRN ORAL For Cough 10/09/16 16:30 11/08/16 16:29 10/09/16 22:28 GISSELLE DALY Oct 16, 2016 13:30
--- NOTE | 2016-10-16 13:35 | General Progress Note ---
Assessment/Plan Status: stable - from renal stand Assessment/Plan status; Proteinuria- HypoNatremia- HypoKalemia- HypoPhosphatemia HyperGlycemia Elevated Cancer Markers ( CEA and CA19-9) Pneumonia COPD Cachexia Plan: mag supplement resume IV NS +KCL K and Na and Phos replacement as needed BS control Monitor renal parameters- Urine studies- GI FU - Lomotil prn per order Subjective ROS Limited/Unobtainable: No Allergies: Coded Allergies: No Known Allergies (Unverified , 12/17/15) Objective Last 24 Hour Vital Signs Date Time Temp Pulse Resp B/P Pulse Ox O2 Delivery O2 Flow Rate FiO2 10/16/16 11:38 68 18 100 Room Air 21 10/16/16 11:35 98.1 78 20 112/74 97 Room Air 10/16/16 11:28 63 16 100 Room Air 21 10/16/16 08:18 97.4 88 20 125/84 98 Room Air 10/16/16 07:16 72 18 99 Room Air 21 10/16/16 07:08 65 16 99 Room Air 21 10/16/16 04:00 98.2 74 19 114/71 95 Room Air 10/16/16 03:14 Room Air 10/16/16 03:13 Room Air 21 10/16/16 00:33 98.2 74 21 133/73 94 Room Air 10/15/16 23:17 84 18 99 Room Air 21 10/15/16 23:17 84 18 99 Room Air 21 10/15/16 20:30 97.5 81 18 126/65 97 Room Air 10/15/16 19:28 79 18 97 Room Air 21 10/15/16 19:27 87 18 96 Room Air 21 10/15/16 16:05 97.3 79 19 103/78 95 10/15/16 14:35 72 18 99 Room Air 21 10/15/16 14:30 70 18 97 Room Air 21 Intake and Output 10/15/16 10/16/16 19:00 07:00 Intake Total 720 ml 600 ml Balance 720 ml 600 ml Intake Oral 720 ml 600 ml # Voids 3 6 # Bowel Movements 2 Laboratory Tests 10/16/16 07:35: White Blood Count 8.6, Red Blood Count 2.97L, Hemoglobin 10.8L, Hematocrit 32.0L , Mean Corpuscular Volume 108H, Mean Corpuscular Hemoglobin 36.4H, Mean Corpuscular Hemoglobin Concent 33.8, Red Cell Distribution Width 12.2, Platelet Count 275, Mean Platelet Volume 6.9, Neutrophils (%) (Auto) 66.4, Lymphocytes (% ) (Auto) 27.1, Monocytes (%) (Auto) 5.6, Eosinophils (%) (Auto) 0.3, Basophils ( %) (Auto) 0.5, Sodium Level 136, Potassium Level 4.6, Chloride Level 95L, Carbon Dioxide Level 29, Anion Gap 12, Blood Urea Nitrogen 7, Creatinine 0.7, Estimat Glomerular Filtration Rate > 60, Glucose Level 271H, Uric Acid [Pending] , Calcium Level 9.0, Phosphorus Level 4.5, Magnesium Level 1.5L, Total Bilirubin < 0.2, Aspartate Amino Transf (AST/SGOT) 20, Alanine Aminotransferase (ALT/SGPT) 17, Alkaline Phosphatase 125, C-Reactive Protein, Quantitative [ Pending], Pro-B-Type Natriuretic Peptide 557H, Total Protein 6.0L, Albumin 2.9L , Globulin 3.1, Albumin/Globulin Ratio 0.9L Height (Feet): 6 Height (Inches): 2.00 Weight (Pounds): 132 General Appearance: no apparent distress Abdomen: soft Objective other PE not changed EMELINA STOVER Oct 16, 2016 13:35
[2016-10-16 14:00] LABS: CRP QUANT 1.7 mg/dL (< 0.5); URIC ACID 2.8 mg/dL (3.0-7.5)
[2016-10-16 15:57] VITALS: BP 116/80
--- NOTE | 2016-10-17 12:08 | Discharge Summary ---
Discharge Summary Hospital Course Date of Admission Oct 07, 2016 at 13:12 Date of Discharge Oct 16, 2016 at 20:35 Admitting Diagnosis PNEUMONIA HPI Felipe Bailey is a 51 year old male who was admitted on Oct 07, 2016 at 13:12 for Pneumonia Hospital Course [id number] Discharge Discharge Disposition Patient was discharged to Home (01) Discharge Diagnoses: Eva Mark NP Oct 17, 2016 12:08
--- NOTE | 2016-10-17 23:48 | Discharge Summary 2 SIG ---
DATE OF ADMISSION: 10/07/2016 DATE OF DISCHARGE: 10/16/2016 CONSULTANTS: 1. Mike Patterson M.D. 2. Pio Stover M.D. 3. Odilon Nick M.D. 4. Sebastien Stanley M.D. 5. Kee Dixon M.D. BRIEF HOSPITAL COURSE: The patient is a 51-year-old male, who presented to ED complaining of cough with congestion, generalized weakness and questionable low-grade fever. Symptoms has been ongoing for the past four days with increased nausea and vomiting. Denies diarrhea. Cough was productive. There is no history of recent travel. No neck pain or photophobia. On evaluation at ED, chest x-ray showed right lower lobe infiltrate. Glucose was elevated and had electrolyte imbalance. Dr. Stanley was consulted for antibiotic management. The patient has leukocytosis with left shift and was initially started on empiric cefepime. He was pancultured and was given azithromycin. Sputum culture showed growth of normal opal with yeast colonizer. CT showed bilateral patchy and reticular borderline mass with mediastinal lymphadenopathy concerned for neoplastic process. Dr. Stover was consulted. The patient underwent CT-guided biopsy of the right lower lung mass. Dr. Nick was also consulted. The biopsy result showed atypical appearing tissue on microscope and per pathologist does not appear to be malignancy, possible alveolar proteinosis or atypical infection. He also had elevated tumor marker CEA and CA-19-9, which could be secondary to inflammation. The pathology report is still pending. His blood glucose was monitored. Glycemic control improved with Levemir 20 units b.i.d. and NovoLog 8 units a.c. t.i.d. He was given Mobic supplements, IV hydration with NS and potassium. Sodium, potassium and phosphate were repleted. He was eventually discharged home. FINAL DIAGNOSES: 1. Pneumonia. 2. Chronic obstructive pulmonary disease. 3. Hyponatremia. 4. Hypokalemia. 5. Diabetes mellitus out of control with possible diabetic nephropathy. 6. Cachexia with severe protein-calorie malnutrition. 7. Elevated tumor markers. 8. Dehydration. 9. Lung mass. 10. Anemia secondary to chronic disease. 11. Thrombocytopenia. 12. Diarrhea improved on Lomotil, negative Clostridium difficile. Pio Stover M.D. I have been assigned to dictate discharge summary on this account and I was not involved in the patient's management. Eva Mark N.P. DR: TERESA JOB#: [id number] CC: DARRELL
--- NOTE | 2016-11-01 09:36 | Diagnostic Imaging Report ---
Indication: Lung mass Technique: Prior imaging studies reviewed. Right lower lobe mask selected as target lesion. Informed consent obtained prior to commencing the procedure. Procedure timeout performed. Localizing slices obtained. Intended puncture site what is sterilely prepped and draped. Local anesthesia with 1% lidocaine. A 17-gauge guide needle was directed into the periphery of the target lesion, satisfactory positioning confirmed by CT slices. Total 4 core specimens obtained using coaxially inserted 18-gauge automated biopsy gun. 3 specimens were submitted in formalin for histology, and one submitted for microbial analysis. A followup scan was obtained, demonstrating no evidence of hemorrhage or pneumothorax. The patient tolerated the procedure well, without immediate complication. Total dose length product 551 mGycm. CTDIvol(s) 12, 13x3 mGy Comparison: Reference to prior CT scan 10/10/2012 Findings: As above Impression: Apparently successful biopsy right lower lobe lung mass, as described Pathology report is available, demonstrating findings consistent with pneumonia, no evidence of malignancy. This is concordant with the imaging findings. However, further followup imaging is recommended to exclude the possibility of sampling error
== END 2016-10-16 20:35 | disposition home or self-care (01) | DRG 139 ==
LOC: ENRESERVDT → ENRESERVTM → EDBD 10:36 → EMR 11:55 → 3E 13:12 → EDBEDREQ 15:55
PROC: 0BBK3ZX Excision of Right Lung, Percutaneous Approach, Diagnostic (ICD-10-PCS; principal; 2016-10-14)
DX: J18.9 Pneumonia, unspecified organism (principal); J84.01 Alveolar proteinosis; R64 Cachexia; R78.81 Bacteremia; I82.409 Acute embolism and thrombosis of unspecified deep veins of unspecified lower extremity; K86.1 Other chronic pancreatitis; E11.21 Type 2 diabetes mellitus with diabetic nephropathy; E86.0 Dehydration; E87.1 Hypo-osmolality and hyponatremia; J44.9 Chronic obstructive pulmonary disease, unspecified; D64.9 Anemia, unspecified; K44.9 Diaphragmatic hernia without obstruction or gangrene; N40.0 Benign prostatic hyperplasia without lower urinary tract symptoms; E87.6 Hypokalemia; R91.8 Other nonspecific abnormal finding of lung field; B96.5 Pseudomonas (aeruginosa) (mallei) (pseudomallei) as the cause of diseases classified elsewhere; R63.4 Abnormal weight loss; Z68.1 Body mass index [BMI] 19.9 or less, adult; R59.0 Localized enlarged lymph nodes; D63.8 Anemia in other chronic diseases classified elsewhere; R97.8 Other abnormal tumor markers; D69.6 Thrombocytopenia, unspecified; R19.7 Diarrhea, unspecified; E11.65 Type 2 diabetes mellitus with hyperglycemia; Z72.0 Tobacco use; K05.6 Periodontal disease, unspecified
CPT/HCPCS: 36415; 71010; 71260; 74177; 76700; 80053; 80061; 80069; 81003; 82378; 82550; 82553; 82607; 82728; 82746; 82962; 82977; 83036; 83540; 83550; 83605; 83690; 83735; 83880; 84100; 84153; 84300; 84443; 84484; 84550; 85025; 85610; 85730; 86140; 86301; 86580; 86703; 86710; 87040; 87045; 87070; 87086; 87181; 87205; 87493; 93005; 93306; 94640; 94664; J1815; J2405; J7620; J8499; S5561

== ENCOUNTER 2017-03-22 23:26 | Inpatient (IN) | payer OTHER ==
[~2017-03-22] VITALS: Ht 185.4 cm; Wt 55.5 kg
[~2017-03-22 23:26] MED LIST changes: +HUMALOG100 UNIT/4 SUBQ
[2017-03-22 23:31] VITALS: BP 111/68
[2017-03-23] VITALS (20 sets, daily range): BP systolic 110–125; BP diastolic 61–107
[2017-03-23 00:01] LABS: APPEARANCE,URINE CLEAR; BASOPHILS % (AUTO) 1.3 % (0.0-2.0); EOSINOPHILS % (AUTO) 0.2 % (0.0-3.0); KETONES,URINE 1+ (NEGATIVE); LEUKOCYTE ESTERASE ,URINE NEGATIVE (NEGATIVE); LYMPHOCYTES % (AUTO) 36.5 % (20.0-45.0); MEAN CORPUSCULAR HEMOGLOBIN 35.1 PG (27.0-31.0); MEAN CORPUSCULAR HGB CONC 34.8 G/DL (32.0-36.0); MEAN CORPUSCULAR VOLUME 101 FL (80-99); MEAN PLATELET VOLUME 7.6 FL (6.5-10.1); MONOCYTES % (AUTO) 7.5 % (1.0-10.0); NEUTROPHILS % (AUTO) 54.5 % (45.0-75.0); NITRITE,URINE NEGATIVE (NEGATIVE); PH,URINE 6 (4.5-8.0); PLATELET COUNT 168 K/UL (150-450); PROTEIN,URINE NEGATIVE (NEGATIVE); RED BLOOD COUNT 3.69 M/UL (4.70-6.10); RED CELL DISTRIBUTION WIDTH 10.9 % (11.6-14.8); UROBILINOGEN,URINE NORMAL MG/DL (0.0-1.0); WHITE BLOOD COUNT 5.3 K/UL (4.8-10.8)
[2017-03-23 00:01] LABS: O2 CONTENT VENOUS < 64.0
[2017-03-23 00:18] LABS: ALANINE AMINOTRANSFERASE 30 U/L (3-41); ANION GAP 22 (5-15); ASPARTATE AMINO TRANSFERASE 33 U/L (5-40); CALCIUM 9.2 mg/dL (8.6-10.2); CARBON DIOXIDE 16 mEQ/L (20-30); CHLORIDE 90 mEQ/L (98-107); CREATININE 1.1 mg/dL (0.7-1.2); GLOMERULAR FILTRATION RATE > 60 mL/min (>60); HEMOLYSIS 47; MAGNESIUM 1.8 mg/dL (1.7-2.5); POTASSIUM 3.8 mEQ/L (3.4-4.9); SODIUM 128 mEQ/L (135-145); TOTAL PROTEIN 6.6 g/dL (6.6-8.7)
[2017-03-23] MEDS ORDERED: Dicyclomine HCl 10mg/5ml oral soln ORAL ONE (01:45)
--- NOTE | 2017-03-23 03:20 | Emergency Room Report ---
History of Present Illness General Chief Complaint: General Complaint Source: Patient Present Illness HPI Patient's 51-year-old male presented after increased generalized abdominal pain as well as high blood sugar. The patient reportedly had been having diarrheal stools for the past 6 months. He reports having prior history of type diabetes and takes Lantus insulin as well as regular insulin. He reports taking 20 units at night as well as 20 to the day. Lantus and sliding scale regular insulin. The patient reports having a blood sugar greater than detectable on his glucometer. He denies any fever. Any bloody stools. Patient states he thinks he has Crohn's disease Allergies: Coded Allergies: No Known Allergies (Unverified , 12/17/15) Patient History Past Medical History: see triage record Reviewed Nursing Documentation: PMH: Agreed, PSxH: Agreed Nursing Documentation-PMH Hx Cardiac Problems: No Hx Hypertension: No Hx Pacemaker: No Hx Asthma: No Hx COPD: No Hx Diabetes: Yes Hx Cancer: No Hx Gastrointestinal Problems: No Hx Dialysis: No Hx Neurological Problems: No Hx Cerebrovascular Accident: No Hx Seizures: No Hx Peripheral Neuropathy: Yes Hx Neurologic Surgery: No Review of Systems All Other Systems: negative except mentioned in HPI Physical Exam Vital Signs Date Time Temp Pulse Resp B/P Pulse Ox O2 Delivery O2 Flow Rate FiO2 03/22/17 22:55 99.0 102 16 110/80 98 Room Air Sp02 EP Interpretation: reviewed, normal General Appearance: normal inspection, well appearing, no apparent distress, alert, thin, Chronically Ill Head: atraumatic ENT: normal ENT inspection, hearing grossly normal, normal voice Neck: normal inspection, full range of motion, supple, no bony tend Respiratory: normal inspection, lungs clear, normal breath sounds, no respiratory distress, no retraction, no wheezing Cardiovascular #1: regular rate, rhythm, no edema Gastrointestinal: normal inspection, normal bowel sounds, non tender, soft, no guarding, no hernia Genitourinary: no CVA tenderness Musculoskeletal: normal inspection, back normal, normal range of motion Neurologic: normal inspection, alert, oriented x3, responsive, medical customer service representative III-XII nml as tested, speech normal Psychiatric: normal inspection, judgement/insight normal, mood/affect normal Skin: normal inspection, normal color, no rash Procedures Critical Care Time Critical Care Time Patient had a critical medical condition which untreated could potentially result in life or limb threatening injury. Total critical care time excluding procedures approximately 45 minutes. Medical Decision Making Diagnostic Impression: Primary Impression: DKA (diabetic ketoacidoses) ER Course Patient presented for abdominal pain. Differential diagnoses included ischemic bowel, diabetic ketoacidosis, appendicitis, perforated viscus, abdominal aortic aneurysm, inferior myocardial infarction, viral gastroenteritis. Because of complexity of patient's case laboratory testing and imaging studies were ordered. EKG interpreted by me showed sinus tachycardia with a rate of 104 QTC was noted before 54. The J-point elevation is noted on the septal leads. Patient was given IV fluids as well as IV insulin and insulin drip. Dr. Stover was contacted for inpatient management due to complexity of medical condition. Labs Test 03/22/17 23:31 03/22/17 23:53 White Blood Count 5.3 K/UL (4.8-10.8) Red Blood Count 3.69 M/UL (4.70-6.10) Hemoglobin 13.0 G/DL (14.2-18.0) Hematocrit 37.3 % (42.0-52.0) Mean Corpuscular Volume 101 FL (80-99) Mean Corpuscular Hemoglobin 35.1 PG (27.0-31.0) Mean Corpuscular Hemoglobin Concent 34.8 G/DL (32.0-36.0) Red Cell Distribution Width 10.9 % (11.6-14.8) Platelet Count 168 K/UL (150-450) Mean Platelet Volume 7.6 FL (6.5-10.1) Neutrophils (%) (Auto) 54.5 % (45.0-75.0) Lymphocytes (%) (Auto) 36.5 % (20.0-45.0) Monocytes (%) (Auto) 7.5 % (1.0-10.0) Eosinophils (%) (Auto) 0.2 % (0.0-3.0) Basophils (%) (Auto) 1.3 % (0.0-2.0) Urine Color Yellow Urine Appearance Clear Urine pH 6 (4.5-8.0) Urine Specific [place] 1.010 (1.005-1.035) Urine Protein Negative (NEGATIVE) Urine Glucose (UA) 4+ (NEGATIVE) Urine Ketones 1+ (NEGATIVE) Urine Occult Blood Negative (NEGATIVE) Urine Nitrite Negative (NEGATIVE) Urine Bilirubin Negative (NEGATIVE) Urine Urobilinogen Normal MG/DL (0.0-1.0) Urine Leukocyte Esterase Negative (NEGATIVE) Sodium Level 128 mEQ/L (135-145) Potassium Level 3.8 mEQ/L (3.4-4.9) Chloride Level 90 mEQ/L (98-107) Carbon Dioxide Level 16 mEQ/L (20-30) Anion Gap 22 (5-15) Blood Urea Nitrogen 10 mg/dL (7-23) Creatinine 1.1 mg/dL (0.7-1.2) Estimat Glomerular Filtration Rate > 60 mL/min (>60) Glucose Level 732 mg/dL (74-106) Calcium Level 9.2 mg/dL (8.6-10.2) Magnesium Level 1.8 mg/dL (1.7-2.5) Total Bilirubin 0.3 mg/dL (0.0-1.2) Aspartate Amino Transf (AST/SGOT) 33 U/L (5-40) Alanine Aminotransferase (ALT/SGPT) 30 U/L (3-41) Alkaline Phosphatase 168 U/L (40-129) Total Protein 6.6 g/dL (6.6-8.7) Albumin 4.4 g/dL (3.5-5.2) Globulin 2.2 g/dL Albumin/Globulin Ratio 2.0 (1.0-2.7) Acetone Level Negative (NEGATIVE) Venous Bld O2 Saturation (Measured) < 64.0 Methemoglobin 0.6 EKG Diagnostic Results Rate: tachycardiac Rhythm: NSR ST Segments: no acute changes Rhythm Strip Diag. Results EP Interpretation: yes Rhythm: NSR, no PVC's, no ectopy Last Vital Signs Date Time Temp Pulse Resp B/P Pulse Ox O2 Delivery O2 Flow Rate FiO2 03/23/17 01:30 99.0 88 16 110/88 98 Room Air Status: unchanged Disposition: ADMITTED INPATIENT Condition: Critical Referrals: NOT CHOSEN IPA/,REFERRING (PCP) Yuniel Jimenez Mar 23, 2017 03:20
[2017-03-23] MEDS ORDERED: Insulin Rate Change 1 Each MISC PRN (04:00)
[2017-03-23 05:23] LABS: EOSINOPHILS % (AUTO) 0.6 % (0.0-3.0); LYMPHOCYTES % (AUTO) 40.6 % (20.0-45.0); MEAN CORPUSCULAR HGB CONC 34.7 G/DL (32.0-36.0); MEAN CORPUSCULAR VOLUME 101 FL (80-99); MEAN PLATELET VOLUME 7.8 FL (6.5-10.1); NEUTROPHILS % (AUTO) 52.8 % (45.0-75.0); PLATELET COUNT 174 K/UL (150-450); RED BLOOD COUNT 3.32 M/UL (4.70-6.10); RED CELL DISTRIBUTION WIDTH 10.9 % (11.6-14.8); WHITE BLOOD COUNT 4.9 K/UL (4.8-10.8)
[2017-03-23 05:33] LABS: ANION GAP 20 (5-15); CALCIUM 8.7 mg/dL (8.6-10.2); CARBON DIOXIDE 19 mEQ/L (20-30); CHLORIDE 100 mEQ/L (98-107); CREATININE 0.6 mg/dL (0.7-1.2); GLOMERULAR FILTRATION RATE > 60 mL/min (>60); HEMOLYSIS 4; SODIUM 139 mEQ/L (135-145)
[2017-03-23 06:25] LABS: ALANINE AMINOTRANSFERASE 25 U/L (3-41); ALBUMIN/GLOBULIN RATIO 2.1 (1.0-2.7); ANION GAP 16 (5-15); ASPARTATE AMINO TRANSFERASE 22 U/L (5-40); CALCIUM 8.7 mg/dL (8.6-10.2); CARBON DIOXIDE 19 mEQ/L (20-30); CHLORIDE 101 mEQ/L (98-107); CREATININE 0.6 mg/dL (0.7-1.2); GLOMERULAR FILTRATION RATE > 60 mL/min (>60); HEMOLYSIS 4; POTASSIUM 2.9 mEQ/L (3.4-4.9); SODIUM 136 mEQ/L (135-145)
[2017-03-23 09:45] LABS: ABG ALLEN TEST POSITIVE; ABG BASE EXCESS -3.7; ABG PCO2 35.3 mmHg (35.0-45.0)
[2017-03-23 10:29] LABS: BASOPHILS % (AUTO) 0.9 % (0.0-2.0); EOSINOPHILS % (AUTO) 0.5 % (0.0-3.0); LYMPHOCYTES % (AUTO) 32.3 % (20.0-45.0); MEAN CORPUSCULAR HEMOGLOBIN 34.8 PG (27.0-31.0); MEAN CORPUSCULAR HGB CONC 34.6 G/DL (32.0-36.0); MEAN CORPUSCULAR VOLUME 101 FL (80-99); MONOCYTES % (AUTO) 6.8 % (1.0-10.0); NEUTROPHILS % (AUTO) 59.5 % (45.0-75.0); PLATELET COUNT 178 K/UL (150-450); RED BLOOD COUNT 3.62 M/UL (4.70-6.10); RED CELL DISTRIBUTION WIDTH 11.2 % (11.6-14.8); WHITE BLOOD COUNT 6.9 K/UL (4.8-10.8)
[2017-03-23 10:54] LABS: ALANINE AMINOTRANSFERASE 23 U/L (3-41); ALBUMIN/GLOBULIN RATIO 1.7 (1.0-2.7); ANION GAP 18 (5-15); ASPARTATE AMINO TRANSFERASE 25 U/L (5-40); CALCIUM 8.9 mg/dL (8.6-10.2); CARBON DIOXIDE 21 mEQ/L (20-30); CHLORIDE 103 mEQ/L (98-107); CREATININE 0.5 mg/dL (0.7-1.2); GLOMERULAR FILTRATION RATE > 60 mL/min (>60); HEMOLYSIS 6; MAGNESIUM 1.6 mg/dL (1.7-2.5); PHOSPHORUS 3.3 mg/dL (2.5-4.8); POTASSIUM 2.9 mEQ/L (3.4-4.9); SODIUM 142 mEQ/L (135-145)
[2017-03-23 10:55] LABS: REFLEX LACTIC ACID YES OR NO YES
--- NOTE | 2017-03-23 10:57 | History and Physical ---
History of Present Illness General Date patient seen: Mar 23, 2017 Reason for Hospitalization: General Complaint Present Illness HPI 51-year-old male with hx of CM presented after increased generalized abdominal pain as well as high blood sugar. The patient reportedly had been having diarrheal stools for the past 6 months. He reports taking 20 units at night as well as 20 to the day. He had a blood sugar greater than detectable on his glucometer. He denies any fever. He admitted to ICU for DKA. Allergies: Coded Allergies: No Known Allergies (Unverified , 12/17/15) Medication History Scheduled Fluconazole (Fluconazole), 100 MG ORAL DAILY Insulin Aspart (Novolog Flexpen), 12 UNITS SUBQ NOVOTIAC Insulin Glargine (Lantus), 20 UNIT SUBQ BEDTIME Insulin Regular, Human* (Novolin R*), 0 SUBQ .SLIDING SCALE, (Reported) Pantoprazole* (Protonix*), 40 MG ORAL DAILY Miscellaneous Medications Docusate Sodium (Dok), 100 MG PO, (Reported) Insulin Lispro (Humalog), 0 SUBQ, (Reported) Patient History Healthcare decision maker Resuscitation status Full Code Advanced Directive on File Past Medical/Surgical History Past Medical/Surgical History: (1) COPD (chronic obstructive pulmonary disease) (2) Kidney stones Review of Systems All Other Systems: negative except mentioned in HPI Physical Exam General Appearance: cachetic Lines, tubes and drains: peripheral HEENT: normocephalic, atraumatic Neck: non-tender, normal alignment Respiratory/Chest: chest wall non-tender, lungs clear Cardiovascular/Chest: normal peripheral pulses, normal rate Abdomen: normal bowel sounds, non tender Genitourinary/Rectal: normal genital exam Extremities: normal range of motion Skin Exam: normal pigmentation Last 24 Hour Vital Signs Date Time Temp Pulse Resp B/P Pulse Ox O2 Delivery O2 Flow Rate FiO2 03/23/17 10:00 82 16 116/86 100 Room Air 03/23/17 09:00 87 16 113/73 100 Room Air 03/23/17 08:00 98.4 81 16 112/78 100 Room Air 03/23/17 07:00 83 17 111/70 99 Room Air 03/23/17 06:00 89 16 114/81 100 Room Air 03/23/17 05:00 69 23 124/76 100 Room Air 03/23/17 04:00 98.8 87 16 118/73 100 Room Air 03/23/17 04:00 93 03/23/17 03:39 99.0 89 16 116/78 98 Room Air 03/23/17 03:27 99.0 89 16 116/78 98 Room Air 03/23/17 01:30 99.0 88 16 110/88 98 Room Air 03/22/17 23:31 99.0 98 16 111/68 98 Room Air 03/22/17 22:55 99.0 102 16 110/80 98 Room Air Intake and Output 03/22/17 03/23/17 19:00 07:00 Intake Total 2401 ml Balance 2401 ml Intake Oral 0 ml IV Total 2401 ml # Voids 1 # Bowel Movements 3 Laboratory Tests Test 03/22/17 23:31 03/22/17 23:53 03/23/17 04:43 03/23/17 09:34 White Blood Count 5.3 K/UL (4.8-10.8) 4.9 K/UL (4.8-10.8) Red Blood Count 3.69 M/UL (4.70-6.10) L 3.32 M/UL (4.70-6.10) L Hemoglobin 13.0 G/DL (14.2-18.0) L 11.6 G/DL (14.2-18.0) L Hematocrit 37.3 % (42.0-52.0) L 33.5 % (42.0-52.0) L Mean Corpuscular Volume 101 FL (80-99) H 101 FL (80-99) H Mean Corpuscular Hemoglobin 35.1 PG (27.0-31.0) H 35.0 PG (27.0-31.0) H Mean Corpuscular Hemoglobin Concent 34.8 G/DL (32.0-36.0) 34.7 G/DL (32.0-36.0) Red Cell Distribution Width 10.9 % (11.6-14.8) L 10.9 % (11.6-14.8) L Platelet Count 168 K/UL (150-450) 174 K/UL (150-450) Mean Platelet Volume 7.6 FL (6.5-10.1) 7.8 FL (6.5-10.1) Neutrophils (%) (Auto) 54.5 % (45.0-75.0) 52.8 % (45.0-75.0) Lymphocytes (%) (Auto) 36.5 % (20.0-45.0) 40.6 % (20.0-45.0) Monocytes (%) (Auto) 7.5 % (1.0-10.0) 5.0 % (1.0-10.0) Eosinophils (%) (Auto) 0.2 % (0.0-3.0) 0.6 % (0.0-3.0) Basophils (%) (Auto) 1.3 % (0.0-2.0) 1.0 % (0.0-2.0) Urine Color Yellow Urine Appearance Clear Urine pH 6 (4.5-8.0) Urine Specific [place] 1.010 (1.005-1.035) Urine Protein Negative (NEGATIVE) Urine Glucose (UA) 4+ (NEGATIVE) H Urine Ketones 1+ (NEGATIVE) H Urine Occult Blood Negative (NEGATIVE) Urine Nitrite Negative (NEGATIVE) Urine Bilirubin Negative (NEGATIVE) Urine Urobilinogen Normal MG/DL (0.0-1.0) Urine Leukocyte Esterase Negative (NEGATIVE) Sodium Level 128 mEQ/L (135-145) L 139 mEQ/L (135-145) # Potassium Level 3.8 mEQ/L (3.4-4.9) 3.0 mEQ/L (3.4-4.9) L Chloride Level 90 mEQ/L (98-107) L 100 mEQ/L (98-107) Carbon Dioxide Level 16 mEQ/L (20-30) L 19 mEQ/L (20-30) L Anion Gap 22 (5-15) H 20 (5-15) H Blood Urea Nitrogen 10 mg/dL (7-23) 9 mg/dL (7-23) Creatinine 1.1 mg/dL (0.7-1.2) 0.6 mg/dL (0.7-1.2) L Estimat Glomerular Filtration Rate > 60 mL/min (>60) > 60 mL/min (>60) Glucose Level 732 mg/dL (74-106) *H 316 mg/dL (74-106) #H Calcium Level 9.2 mg/dL (8.6-10.2) 8.7 mg/dL (8.6-10.2) Magnesium Level 1.8 mg/dL (1.7-2.5) Total Bilirubin 0.3 mg/dL (0.0-1.2) 0.3 mg/dL (0.0-1.2) Aspartate Amino Transf (AST/SGOT) 33 U/L (5-40) 22 U/L (5-40) Alanine Aminotransferase (ALT/SGPT) 30 U/L (3-41) 25 U/L (3-41) Alkaline Phosphatase 168 U/L (40-129) H 110 U/L (40-129) Total Protein 6.6 g/dL (6.6-8.7) 6.0 g/dL (6.6-8.7) L Albumin 4.4 g/dL (3.5-5.2) 4.1 g/dL (3.5-5.2) Globulin 2.2 g/dL 1.9 g/dL Albumin/Globulin Ratio 2.0 (1.0-2.7) 2.1 (1.0-2.7) Acetone Level Negative (NEGATIVE) Negative (NEGATIVE) Venous Blood pH Pending Venous Blood Partial Pressure CO2 Pending Venous Blood Partial Pressure O2 Pending Venous Blood HCO3 Pending Venous Blood Total Carbon Dioxide Pending Venous Bld O2 Saturation (Measured) < 64.0 Venous Blood Oxygen Saturation Pending Venous Blood Base Excess Pending Methemoglobin 0.6 Sodium (Blood Gas) Pending Hemoglobin A1c 14.9 % (< 6.0) H Arterial Blood pH 7.380 (7.350-7.450) Arterial Blood Partial Pressure CO2 35.3 mmHg (35.0-45.0) Arterial Blood Partial Pressure O2 93.4 mmHg (75.0-100.0) Arterial Blood HCO3 20.7 mmol/L (22.0-26.0) L Arterial Blood Oxygen Saturation 96.1 % (92.0-98.0) Arterial Blood Base Excess -3.7 [place] Test Positive Test 03/23/17 09:45 White Blood Count 6.9 K/UL (4.8-10.8) Red Blood Count 3.62 M/UL (4.70-6.10) L Hemoglobin 12.6 G/DL (14.2-18.0) L Hematocrit 36.4 % (42.0-52.0) L Mean Corpuscular Volume 101 FL (80-99) H Mean Corpuscular Hemoglobin 34.8 PG (27.0-31.0) H Mean Corpuscular Hemoglobin Concent 34.6 G/DL (32.0-36.0) Red Cell Distribution Width 11.2 % (11.6-14.8) L Platelet Count 178 K/UL (150-450) Mean Platelet Volume 8.0 FL (6.5-10.1) Neutrophils (%) (Auto) 59.5 % (45.0-75.0) Lymphocytes (%) (Auto) 32.3 % (20.0-45.0) Monocytes (%) (Auto) 6.8 % (1.0-10.0) Eosinophils (%) (Auto) 0.5 % (0.0-3.0) Basophils (%) (Auto) 0.9 % (0.0-2.0) Sodium Level Pending Potassium Level Pending Chloride Level Pending Carbon Dioxide Level Pending Blood Urea Nitrogen Pending Creatinine Pending Estimat Glomerular Filtration Rate Pending Glucose Level Pending Lactic Acid Level Pending Calcium Level Pending Phosphorus Level Pending Magnesium Level Pending Total Bilirubin Pending Aspartate Amino Transf (AST/SGOT) Pending Alanine Aminotransferase (ALT/SGPT) Pending Alkaline Phosphatase Pending Lactate Dehydrogenase Pending Total Protein Pending Albumin Pending Globulin Pending Triglycerides Level Pending Cholesterol Level Pending LDL Cholesterol Pending HDL Cholesterol Pending Cholesterol/HDL Ratio Pending Hepatitis A IgM Antibody Pending Hepatitis B Surface Antigen Pending Hepatitis B Core IgM Antibody Pending Hepatitis C Antibody Pending Height (Feet): 6 Height (Inches): 1.00 Weight (Pounds): 122 Medications Current Medications Medications (Trade) Dose Ordered Sig/Suzette Route PRN Reason Start Time Stop Time Status Last Admin Dose Admin Dextrose (Dextrose 50%) PRN PRN IV HYPOGLYCEMIA 03/23/17 04:00 04/22/17 03:59 03/23/17 06:50 Dextrose/ Electrolytes (D5 0.45%NS W/ KCl 20mEq) 1,000 ml @ 100 mls/hr Q10H IV 03/23/17 11:00 04/22/17 10:59 UNV Insulin Human Regular (NovoLIN R) 5 units PRN PRN IV BS 200-299 03/23/17 04:00 04/22/17 03:59 03/23/17 05:01 Insulin Human Regular (NovoLIN R) 10 units PRN PRN IV BS=>300 03/23/17 04:00 04/22/17 03:59 03/23/17 04:46 Insulin Human Regular 100 units/ Sodium Chloride 101 ml @ 0 mls/hr Q24H IV 03/23/17 08:30 04/22/17 08:29 03/23/17 09:28 Miscellaneous Medication 1 ea 1 ea PRN PRN MISC Hypoglycemia 03/23/17 04:00 04/22/17 03:59 03/23/17 06:02 Assessment/Plan Problem List: (1) DKA (diabetic ketoacidoses) ICD Codes: E13.10 - Other specified diabetes mellitus with ketoacidosis without coma SNOMED: 794134935 (2) Cachectic ICD Codes: R64 - Cachexia SNOMED: 785154577 (3) COPD (chronic obstructive pulmonary disease) ICD Codes: J44.9 - Chronic obstructive pulmonary disease, unspecified SNOMED: 39543933 Assessment/Plan Insulin drip accucheck hourly GI consult for chronic diarrhea dvt prophylaxis GISSELLE DALY Mar 23, 2017 10:57
[2017-03-23 11:16] LABS: CHOLESTEROL 84 mg/dL (< 200); CHOLESTEROL/HDL RATIO 2.3 (3.3-4.4); LDL CHOLESTEROL (CALC.) 31 mg/dL (60-99)
--- NOTE | 2017-03-23 11:23 | Diagnostic Imaging Report ---
Indication: Cough, abnormal chest sounds Technique: Single portable AP view of the chest. Findings: Comparison: 10/14/2016 Previous bilateral pulmonary parenchymal opacities have resolved. The bones and extra pulmonary soft tissues, cardiomediastinal silhouette, pulmonary vasculature and parenchyma, and pleural surfaces are unremarkable. IMPRESSION: Negative portable AP chest Resolution of prior lung opacities
[2017-03-23] MEDS: D5 1/2NS w/KCl 20mEq 1,000 ML IV SCH ×3 (11:30→22:15)
[2017-03-23 11:34] LABS: LACTATE DEHYDROGENASE 150 U/L (135-230)
[2017-03-23 11:53] LABS: CRP QUANT < 0.3 mg/dL (< 0.5)
[2017-03-23] MEDS ORDERED: Morphine Sulfate 2mg/ml Inj IVP PRN (12:00)
[2017-03-23] MEDS ORDERED: LORazepam Inj 2mg/ml 1ml IV PRN (12:00)
[2017-03-23] MEDS ORDERED: Mylanta II UD 30ml ORAL PRN (12:00)
--- NOTE | 2017-03-23 12:30 | Consultation ---
Consult Note Consult Note HEMATOLOGY/ONCOLOGY CONSULTATION CONSULTING PHYSICIAN: Sandoval Sweet M.D. REFERRING PHYSICIAN: Pio Stover M.D. REASON FOR CONSULTATION: Evaluation of weight loss, prior elevated tumor markers DOS: 03/23/17 IDENTIFICATION: Dear Dr. Pio Stover, The patient is a pleasant 51-year-old male who is an active smoker has been admitted before approximately 6 months ago, at this time presents to [facility] with cough and congestion. He has been complaining of weight loss recently. He does not have any diarrhea or subsequent gi symptoms, however he does complain of nausea and vomiting. Upon presentation to the ER, he has been complaining of generalized abdominal pain as well as high blood sugar. The patient reportedly had been having diarrheal stools for the past 6 months. He reports taking 20 units at night as well as 20 to the day. He had a blood sugar greater than detectable on his glucometer. He denies any fever. He admitted to ICU for DKA. Has a history of weight loss of approximately 20lbs over the past 6 months and also had a elevated tumor markers and therefore hematology/oncology was consulted. PAST MEDICAL HISTORY: Chronic pancreatitis, hiatal hernia, BPH, right-sided empyema. PAST SURGICAL HISTORY: VATS on the right side SOCIAL HISTORY: He is an active smoker. No illicit drugs or alcohol use. FAMILY HISTORY: Noncontributory. MEDICATIONS: Cefepime, heparin, DuoNebs. ALLERGIES: No known drug allergies. REVIEW OF SYSTEMS: Constitutional: No fever, chills, or night sweats. Skin: No rash, lumps, or itching. HEENT: No headache, hearing, or vision changes. Breasts: No lumps, pain, or discharge. Pulmonary: No cough, sputum, or shortness of breath. Cardiovascular: No chest pain, tightness, or palpitations. Gastrointestinal: Nausea and vomiting continues to persist. No diarrhea noted. Genitourinary: No dysuria, frequency, or urgency. Musculoskeletal: No joint swelling, muscle pain, or trauma. Neurologic: No dizziness, fainting, or seizures. PE: GENERAL: He is in no distress. VITAL SIGNS: Temperature 98.3 degrees Fahrenheit, pulse 83, respiratory rate of 18, blood pressure 91/66, and pulse oximetry 97% on room air. PULMONARY: Decreased breath sounds. CV: Regular rate. No S3 or S4. ABDOMEN: Soft, nontender, and nondistended. EXTREMITIES: No cyanosis, clubbing, or edema. The patient is generally cachectic. NEUROLOGIC: Nonfocal. Cranial nerves II through XII are intact. Laboratory Tests Test 03/22/17 23:31 03/22/17 23:53 03/23/17 04:43 03/23/17 09:34 White Blood Count 5.3 K/UL (4.8-10.8) 4.9 K/UL (4.8-10.8) Red Blood Count 3.69 M/UL (4.70-6.10) L 3.32 M/UL (4.70-6.10) L Hemoglobin 13.0 G/DL (14.2-18.0) L 11.6 G/DL (14.2-18.0) L Hematocrit 37.3 % (42.0-52.0) L 33.5 % (42.0-52.0) L Mean Corpuscular Volume 101 FL (80-99) H 101 FL (80-99) H Mean Corpuscular Hemoglobin 35.1 PG (27.0-31.0) H 35.0 PG (27.0-31.0) H Mean Corpuscular Hemoglobin Concent 34.8 G/DL (32.0-36.0) 34.7 G/DL (32.0-36.0) Red Cell Distribution Width 10.9 % (11.6-14.8) L 10.9 % (11.6-14.8) L Platelet Count 168 K/UL (150-450) 174 K/UL (150-450) Mean Platelet Volume 7.6 FL (6.5-10.1) 7.8 FL (6.5-10.1) Neutrophils (%) (Auto) 54.5 % (45.0-75.0) 52.8 % (45.0-75.0) Lymphocytes (%) (Auto) 36.5 % (20.0-45.0) 40.6 % (20.0-45.0) Monocytes (%) (Auto) 7.5 % (1.0-10.0) 5.0 % (1.0-10.0) Eosinophils (%) (Auto) 0.2 % (0.0-3.0) 0.6 % (0.0-3.0) Basophils (%) (Auto) 1.3 % (0.0-2.0) 1.0 % (0.0-2.0) Urine Color Yellow Urine Appearance Clear Urine pH 6 (4.5-8.0) Urine Specific [place] 1.010 (1.005-1.035) Urine Protein Negative (NEGATIVE) Urine Glucose (UA) 4+ (NEGATIVE) H Urine Ketones 1+ (NEGATIVE) H Urine Occult Blood Negative (NEGATIVE) Urine Nitrite Negative (NEGATIVE) Urine Bilirubin Negative (NEGATIVE) Urine Urobilinogen Normal MG/DL (0.0-1.0) Urine Leukocyte Esterase Negative (NEGATIVE) Sodium Level 128 mEQ/L (135-145) L 139 mEQ/L (135-145) # Potassium Level 3.8 mEQ/L (3.4-4.9) 3.0 mEQ/L (3.4-4.9) L Chloride Level 90 mEQ/L (98-107) L 100 mEQ/L (98-107) Carbon Dioxide Level 16 mEQ/L (20-30) L 19 mEQ/L (20-30) L Anion Gap 22 (5-15) H 20 (5-15) H Blood Urea Nitrogen 10 mg/dL (7-23) 9 mg/dL (7-23) Creatinine 1.1 mg/dL (0.7-1.2) 0.6 mg/dL (0.7-1.2) L Estimat Glomerular Filtration Rate > 60 mL/min (>60) > 60 mL/min (>60) Glucose Level 732 mg/dL (74-106) *H 316 mg/dL (74-106) #H Calcium Level 9.2 mg/dL (8.6-10.2) 8.7 mg/dL (8.6-10.2) Magnesium Level 1.8 mg/dL (1.7-2.5) Total Bilirubin 0.3 mg/dL (0.0-1.2) 0.3 mg/dL (0.0-1.2) Aspartate Amino Transf (AST/SGOT) 33 U/L (5-40) 22 U/L (5-40) Alanine Aminotransferase (ALT/SGPT) 30 U/L (3-41) 25 U/L (3-41) Alkaline Phosphatase 168 U/L (40-129) H 110 U/L (40-129) Total Protein 6.6 g/dL (6.6-8.7) 6.0 g/dL (6.6-8.7) L Albumin 4.4 g/dL (3.5-5.2) 4.1 g/dL (3.5-5.2) Globulin 2.2 g/dL 1.9 g/dL Albumin/Globulin Ratio 2.0 (1.0-2.7) 2.1 (1.0-2.7) Acetone Level Negative (NEGATIVE) Negative (NEGATIVE) Venous Blood pH Pending Venous Blood Partial Pressure CO2 Pending Venous Blood Partial Pressure O2 Pending Venous Blood HCO3 Pending Venous Blood Total Carbon Dioxide Pending Venous Bld O2 Saturation (Measured) < 64.0 Venous Blood Oxygen Saturation Pending Venous Blood Base Excess Pending Methemoglobin 0.6 Sodium (Blood Gas) Pending Erythrocyte Sedimentation Rate Pending Hemoglobin A1c 14.9 % (< 6.0) H C-Reactive Protein, Quantitative < 0.3 mg/dL (< 0.5) Carcinoembryonic Antigen 13.3 ng/mL H CA 19-9 Antigen 95.56 U/mL (< 37) H Thyroid Stimulating Hormone (TSH) 1.290 uIU/mL (0.300-4.500) Arterial Blood pH 7.380 (7.350-7.450) Arterial Blood Partial Pressure CO2 35.3 mmHg (35.0-45.0) Arterial Blood Partial Pressure O2 93.4 mmHg (75.0-100.0) Arterial Blood HCO3 20.7 mmol/L (22.0-26.0) L Arterial Blood Oxygen Saturation 96.1 % (92.0-98.0) Arterial Blood Base Excess -3.7 Cedrick Test Positive Test 03/23/17 09:45 White Blood Count 6.9 K/UL (4.8-10.8) Red Blood Count 3.62 M/UL (4.70-6.10) L Hemoglobin 12.6 G/DL (14.2-18.0) L Hematocrit 36.4 % (42.0-52.0) L Mean Corpuscular Volume 101 FL (80-99) H Mean Corpuscular Hemoglobin 34.8 PG (27.0-31.0) H Mean Corpuscular Hemoglobin Concent 34.6 G/DL (32.0-36.0) Red Cell Distribution Width 11.2 % (11.6-14.8) L Platelet Count 178 K/UL (150-450) Mean Platelet Volume 8.0 FL (6.5-10.1) Neutrophils (%) (Auto) 59.5 % (45.0-75.0) Lymphocytes (%) (Auto) 32.3 % (20.0-45.0) Monocytes (%) (Auto) 6.8 % (1.0-10.0) Eosinophils (%) (Auto) 0.5 % (0.0-3.0) Basophils (%) (Auto) 0.9 % (0.0-2.0) Sodium Level 142 mEQ/L (135-145) Potassium Level 2.9 mEQ/L (3.4-4.9) L Chloride Level 103 mEQ/L (98-107) Carbon Dioxide Level 21 mEQ/L (20-30) Anion Gap 18 (5-15) H Blood Urea Nitrogen 9 mg/dL (7-23) Creatinine 0.5 mg/dL (0.7-1.2) L Estimat Glomerular Filtration Rate > 60 mL/min (>60) Glucose Level 141 mg/dL (74-106) #H Lactic Acid Level 2.00 mmol/L (0.66-2.22) Calcium Level 8.9 mg/dL (8.6-10.2) Phosphorus Level 3.3 mg/dL (2.5-4.8) Magnesium Level 1.6 mg/dL (1.7-2.5) L Total Bilirubin 0.8 mg/dL (0.0-1.2) Aspartate Amino Transf (AST/SGOT) 25 U/L (5-40) Alanine Aminotransferase (ALT/SGPT) 23 U/L (3-41) Alkaline Phosphatase 75 U/L (40-129) Lactate Dehydrogenase 150 U/L (135-230) Total Protein 6.0 g/dL (6.6-8.7) L Albumin 3.8 g/dL (3.5-5.2) Globulin 2.2 g/dL Albumin/Globulin Ratio 1.7 (1.0-2.7) Triglycerides Level 81 mg/dL (< 150) Cholesterol Level 84 mg/dL (< 200) LDL Cholesterol 31 mg/dL (60-99) L HDL Cholesterol 37 mg/dL (> 60) Cholesterol/HDL Ratio 2.3 (3.3-4.4) L Hepatitis A IgM Antibody Pending Hepatitis B Surface Antigen Pending Hepatitis B Core IgM Antibody Pending Hepatitis C Antibody Pending IMAGING: Reviewed. Chest x-ray on 10/07/2016 shows right basilar pneumonia CT scan shows chronic calcific pancreatitis. ASSESSMENT/RECS: # Bilateral pulmonary masses/opacities - s/p ct-guided biopsy have reviewed and shows atypical appearing tissue on microscope, query alveolar proteinosis v atypical infection. The tissue shows no evidence for malignancy, have reviewed the path again --> can consider re-image in the future as per pulm recs # Elevated tumor markers CEA and CA 19.9. Currently are slightly higher compared to before # Anemia secondary to chronic disease. Ferritin is elevated # Cachexia, malnourishment, and weight loss. # Thrombocytopenia, has improved # Leukocytosis, mild. Has improved # Pneumonia been treated with abx # COPD Kee Nick Mar 23, 2017 12:30
[2017-03-23 16:58] LABS: ANION GAP 11 (5-15); CALCIUM 8.9 mg/dL (8.6-10.2); CARBON DIOXIDE 23 mEQ/L (20-30); CHLORIDE 103 mEQ/L (98-107); CREATININE 0.7 mg/dL (0.7-1.2); GLOMERULAR FILTRATION RATE > 60 mL/min (>60); HEMOLYSIS 9; SODIUM 137 mEQ/L (135-145)
--- NOTE | 2017-03-23 18:02 | Consultation ---
Consult Note Consult Note DATE OF CONSULTATION: 03/23/2016 INFECTIOUS DISEASES CONSULTATION CONSULTING PHYSICIAN: Clifton Galvin M.D., TXM[facility]H, [facility] covering for Dr. Stanley REFERRING PHYSICIAN: Pio Stover M.D. REASON FOR CONSULTATION: chronic watery diarrhea, wasting disease HISTORY OF PRESENT ILLNESS: 51-year-old male, smoker, h/o chronic pancreatitis, IDDM x7 years with HGBA1C 14.9%, remote h/o R empyema requiring VATS, h/o pulmonary nodules now resolved, admitted now in DKA secondary to dehydration. ID consultation requested for evaluation for his chronic watery diarrhea, profound unintentional weight loss. abrupt onset 6 months ago of watery non bloody stools, occasionally yellow, sometimes floats, 20-25 times per day, wakes him up from sleep, with occasional encopresis due to urgency. Denies f/c, n/v, rash, cough, h/a, visual complaints. his appetite is intact, not described as high fat or high protein, but feels he cannot keep up with nutrition and has lost more than 20 lbs over the past 6 months. denies sick contacts, no recent travel, has lived in [place] w/o any travel out of area since moving here from [place] in 2014. Remote h/o travel around the world including [place]. Denies family h/o IBD, and prior to 6 months ago he reports his bowel movement were regular. He had last admission in for these same symptoms, and during the evaluation he had a CT demonstrating bilateral patchy and reticular pulmonary mass/nodules and mediastinal LAD for which he underwent R lung CT guided bx on [id number] with histopath demonstrating alveolar lumen filled with fibrin mixed with acute inflammatory cells (neutrophils, macrophages, and lymphocytes), mildly thickened alveolar wall, and focal organizing pneumonia, but was negative for malignancy and gram stain, PAS, and GMS stains were negative for organisms. Prior PPD negative. HIV rapid test negative in , and he denies high risk sexual behavior. Has a history of weight loss of approximately 20lbs over the past 6 months and also had a elevated tumor markers and therefore hematology/oncology was consulted. PAST MEDICAL HISTORY: IDDM diabetic neuropathy Chronic pancreatitis hiatal hernia BPH right-sided empyema RLL pneumonia with pulmonary nodules--[id number]--m/p 7 days cefepime--resolved on CXR now. DVT HIV negative-- h/o Pseudomonas bacteremia periodontal disease Elevated CEA and CA-19-19 h/o PPD negative Past Surgical History: R VATS ALLERGIES: No known drug allergies. Antibiotics: None Home medications reviewed. SOCIAL HISTORY: The patient lives at home. He is an active smoker. No illicit drugs or alcohol use. FAMILY HISTORY: Noncontributory REVIEW OF SYSTEMS: 11 point ROS negative except for that mentioned in HPI above. PHYSICAL EXAMINATION: VITAL SIGNS: GEN: awake, alert, non toxic appearing HEENT: Mild pale conjunctiva. oral mucosa dry. No icterus. Head, normocephalic. neck supple. angular cheilitis NECK: shotty anterior cervical lymphadenopathy. CHEST: cta b/l. old healed R flank scar from prior empyema HEART: S1 and S2, no murmurs ABDOMEN: scaphoid. No organomegaly. EXTREMITIES: No cyanosis. No BLE. no rash. old healed scars on ble. no picc line in place NEUROLOGIC: awake, alert. No focal neurologic motor deficits. decreased sensation to BLE. : no scrotal edema, no testicular mass, no rash, no discharge from penis. Lymph: subcm non tender b/l axillary nodes. shotty b/l inguinal LAD. rectal: deferred LABORATORY AND DIAGNOSTIC DATA: Admission WBC 5.3, 0.2% eosinophils, hgb 13.0, plt 168. ESR 5mm/hr. CRP <0.3mg/dL. Na 139, K 3, CO2 19, SCr 0.6, gluc 316, anion gap 20, HGBa1c 14.9%. Ca 8.7 amylase and lipase pending. t bili 0.8, nl AST and ALT, alk phos 75, LDH nl at 150. TSH 1.29, CEA 13.3, CA 19-9 95.56 U/A with + LE, + nitrites and too numberous to count WBCx Blood and ucx pending. Hepatitis panel pending CXR: no infiltrate, no residual pulmonary nodules, no effusion. Assessment/Plan ASSESSMENT: 51 y/o male with insulin dependent DM x7 years, prior imaging demonstrating calcific chronic pancreatitis, and persistently elevated CEA and CA19-9, is now admitted for DKA. CXR and u/a do not suggest UTI or pneumonia, and patient is afebrile w/o leukocytosis. However, he does have chronic watery diarrhea and 6 months of profound weight loss for which prior evaluation has been non diagnostic. His prior lung bx from is interesting, showing non specific inflammation , and some foamy macrophages, which can be found in the lung (or lymph nodes) in patient's with Whipple's disease, but I think this diagnosis is not likely here for two reasons: 1) His admission CXR now demonstrates that prior pulmonary nodules have resolved in the interim s/p ~1 week of IV antibiotics back in ; 2) probably more likely he has chronic malabsorption from failing exocrine pancreas function. I think an infectious etiology in for his chronic diarrhea and wasting in this HIV negative patient w/o known active malignancy and not on immunosuppressant therapy is less likely, but should r/o low likelihood of cryptosporidial diarrhea. Because he's HIV negative, I don't recommend asking for a modified trichrome stain on stool to r/o microsporidia, but the stool O&P with modified acid fast stain is reasonable to look for Cyclospora, Isospora, and Giardia. He lacks a travel history nor any blood in stool that would suggest entamoebic colitis. He has not had any rash or h/o dementia that might suggest pellagra, and he has an alternative explanation for his peripheral neuropathy (DM). //Chronic Diarrhea, watery, non bloody //Cachexia //Unintentional weight loss x 6 months //DKA, no acute infectious cause identified PLAN: Stool lactoferrin, Cryptosporidium DFA, and Stool Ova and Parasite exam with modified acid fast staining (to r/o Giardia, Cyclospora, and Isospora). further recs pending results of above and fecal fat testing. If his evaluation is negative for IBD or chronic malabsorption due to absence of pancreas exocrine function, only then would I consider recommending ruling out Whipple's disease with duodenal bx to look for diastase-resistant, PAS- positive, [id number] granules of intestinal macrophages. Thank you for this consultation. Will continue to follow. Clifton Galvin M.D. Mar 23, 2017 18:02
[2017-03-23] MEDS ORDERED: KCl 10% 40mEq/30ml liquid ORAL ONE (19:00)
[2017-03-23] MEDS ORDERED: Levemir Flexpen SUBQ SCH (20:00)
[2017-03-23] MEDS ORDERED: NovoLOG Insulin Flexpen SUBQ SCH (21:00)
[2017-03-23] MEDS ORDERED: Zolpidem 5mg tab ORAL PRN (21:00)
[2017-03-23] MEDS ORDERED: Miralax 17gm pkt ORAL PRN (21:00)
--- NOTE | 2017-03-23 22:30 | Consultation ---
DATE OF CONSULTATION: 03/23/2017 GASTROENTEROLOGY CONSULTATION CHIEF COMPLAINT: Diarrhea and anemia. HISTORY OF PRESENT ILLNESS: This is a very pleasant 51-year-old male with prior admission to the hospital with pneumonia and questionable lung mass at that time. Biopsies were negative for malignancy. He is admitted to the hospital with acute diabetic ketoacidosis. The patient also complained of weight loss and diarrhea. PAST MEDICAL HISTORY: 1. Diabetes. 2. Calcified atrophic pancreas. 3. Anemia. 4. Elevated tumor markers including CEA and CA-19-9. 5. History of alcohol usage. MEDICATIONS: Please see medication reconciliation list. ALLERGIES: No known drug allergies. SOCIAL HISTORY: The patient smokes about half a pack per day. He also drinks beer and also vodka. He states he drinks beer two or three per day and vodka may be one or two shots or three shots per week. No intravenous drug abuse. FAMILY HISTORY: Noncontributory. REVIEW OF SYSTEMS: A 10-point review of systems was performed and pertinent positives in the history of present illness. PHYSICAL EXAMINATION: VITAL SIGNS: Temperature 98.4 degrees, pulse 81, respirations 16, and blood pressure 112/78. HEENT: Normocephalic and atraumatic. Sclerae anicteric. NECK: Supple. No lymphadenopathy. CARDIOVASCULAR: Regular rhythm. Plus S1 and S2. No obvious murmur. LUNGS: Decreased breath sounds bilaterally. ABDOMEN: Bowel sounds are present. Soft and nontender. No rebound. No guarding. No peritoneal sign. EXTREMITIES: No cyanosis. No clubbing. No edema. LABORATORY DATA: White count 6.9, hemoglobin 12, hematocrit 36, and platelets 178,000. Chem-7, sodium 134, potassium 3.1, BUN 5, creatinine 0.6, and glucose 446. ASSESSMENT: 1. The patient is a 51-year-old male with diarrhea, weight loss, elevated tumor markers, questionable history of lung mass before, and calcified atrophic pancreas on the imaging studies. 2. Diverticulosis. PLAN: Diarrhea might be from the atrophic pancreas and pancreatic insufficiency. The patient has a history of diabetes and admitted with diabetic ketoacidosis. The pancreatic insufficiency is a very high risk for this patient. Also on the top, the patient drinks alcohol and he drinks beer and vodka. So, plan will be to send stool for fat, send stool for OB, and send stool for C. difficile. I see the order for read CT. I agree with a stat CT of the chest, abdomen, and pelvis to evaluate for elevated CEA. When the patient gets off of diabetic ketoacidosis and off of the intensive care unit and if the CT is nondiagnostic, we will consider GI procedures for evaluation of weight loss. We also consider adding pancreatic enzymes after the stool studies are done. I want to thank Dr. Stover for this kind referral. Pio Sotver M.D. Geovanni Cedeño M.D. DR: NISHI JOB#: [id number] CC:
[2017-03-24] MEDS ORDERED: LORazepam Inj 2mg/ml 1ml IV PRN
[2017-03-24] MEDS ORDERED: Mylanta II UD 30ml ORAL PRN
[2017-03-24 00:26] VITALS: BP 121/84
[2017-03-24 04:00] VITALS: BP 113/73
[2017-03-24] MEDS: Morphine Sulfate 2mg/ml Inj IVP PRN ×4 (04:05→21:29)
[2017-03-24] MEDS: NovoLOG Insulin Flexpen SUBQ SCH ×4 (06:29→18:53)
[2017-03-24 07:27] LABS: BASOPHILS % (AUTO) 0.7 % (0.0-2.0); EOSINOPHILS % (AUTO) 0.7 % (0.0-3.0); LYMPHOCYTES % (AUTO) 44.3 % (20.0-45.0); MEAN CORPUSCULAR HEMOGLOBIN 34.6 PG (27.0-31.0); MEAN CORPUSCULAR HGB CONC 33.9 G/DL (32.0-36.0); MEAN CORPUSCULAR VOLUME 102 FL (80-99); MEAN PLATELET VOLUME 7.6 FL (6.5-10.1); NEUTROPHILS % (AUTO) 48.4 % (45.0-75.0); PLATELET COUNT 167 K/UL (150-450); RED BLOOD COUNT 3.48 M/UL (4.70-6.10); RED CELL DISTRIBUTION WIDTH 11.5 % (11.6-14.8); WHITE BLOOD COUNT 6.4 K/UL (4.8-10.8)
[2017-03-24 07:48] LABS: ALANINE AMINOTRANSFERASE 26 U/L (3-41); ALBUMIN/GLOBULIN RATIO 2.3 (1.0-2.7); ANION GAP 9 (5-15); ASPARTATE AMINO TRANSFERASE 32 U/L (5-40); CALCIUM 8.7 mg/dL (8.6-10.2); CARBON DIOXIDE 23 mEQ/L (20-30); CHLORIDE 103 mEQ/L (98-107); CHOLESTEROL 88 mg/dL (< 200); CREATININE 0.7 mg/dL (0.7-1.2); GLOMERULAR FILTRATION RATE > 60 mL/min (>60); HEMOLYSIS 6; LDL CHOLESTEROL (CALC.) 31 mg/dL (60-99); MAGNESIUM 1.9 mg/dL (1.7-2.5); PHOSPHORUS 2.8 mg/dL (2.5-4.8); POTASSIUM 4.5 mEQ/L (3.4-4.9); SODIUM 135 mEQ/L (135-145); TOTAL PROTEIN 5.7 g/dL (6.6-8.7)
[2017-03-24 08:00] VITALS: BP 108/74
[2017-03-24] MEDS: D5 1/2NS w/KCl 20mEq 1,000 ML IV SCH ×2 (08:30→18:32)
--- NOTE | 2017-03-24 09:10 | Diagnostic Imaging Report ---
Indication: Abdominal pain Technique: Patient given oral contrast. Multiphasic spiral acquisitions obtained through the chest, abdomen, and pelvis. Multiplanar reconstructions were generated. Total dose length product 1006 mGycm. CTDIvol(s) 8, 105, 9, 10 mGy. Radiation dose was minimized using automated exposure control Comparison: 10/10/2016 Findings: Generalized mild soft tissue edema, aspect body habitus somewhat limits inherent soft tissue contrast and therefore somewhat limits evaluation. Chest: Small cystic space is again demonstrated in the subpleural posterior right upper lobe. Small pleural-based opacity is again demonstrated at the apex of the right lower lobe. Enlarging pleural-based opacity is seen at the base of the right lower lobe a 4 mm nodular opacity is seen in the inferior left upper lobe, image 35 of series 6. No other left lung opacity demonstrated. Previously demonstrated bilateral parenchymal opacities have cleared. The heart size is normal. No pericardial effusion. No mediastinal or hilar mass or adenopathy. Previously demonstrated pretracheal and subcarinal adenopathy has resolved. No axillary or chest wall mass or adenopathy. Unremarkable esophagus. Abdomen pelvis: The appendix is normal. There is colonic diverticulosis. No evidence of diverticulitis. No small bowel distention. No free or loculated intraperitoneal air or fluid is evident. Liver is mildly enlarged. Low-attenuation area again demonstrated adjacent to the fissure for the ligamentum teres is consistent with focal fatty deposition. The gallbladder is nondistended. There is no biliary ductal dilatation. The pancreas is markedly atrophic, with calcifications and ectasia of the pancreatic duct, also previously demonstrated. The spleen, adrenals, right kidney are unremarkable. Left kidney demonstrates a subcentimeter low-attenuation lesion which is too small to characterize. No pelvic mass or adenopathy. No retroperitoneal or mesenteric mass or adenopathy. The bones are unremarkable. Impression: Generalized mild soft tissue edema again demonstrated, somewhat limits evaluation Since 10/10/2016, interim resolution of most of the previously demonstrated parenchymal opacities. Residual scattered opacities, as described, may reflect post inflammatory changes. Consider further followup CT imaging in 6-12 months of there is high risk for lung carcinoma Interim resolution of previously demonstrated mediastinal lymphadenopathy. Right upper lung cystic space, may reflect COPD changes Colonic diverticulosis. No evidence of diverticulitis Borderline hepatomegaly Focal hepatic low attenuation, consistent with focal fatty deposition Evidence of chronic ossified pancreatitis, also previously described Subcentimeter low-attenuation left renal lesion, too small to characterize, most likely benign simple cyst. This agrees with the preliminary interpretation provided overnight by Dr. Wynn The CT scanner at [facility] is accredited by the [employer] and the scans are performed using protocols designed to limit radiation exposure to as low as reasonably achievable to attain images of sufficient resolution adequate for diagnostic evaluation.
[2017-03-24] MEDS: Levemir Flexpen SUBQ SCH ×2 (10:12→21:19)
[2017-03-24 12:00] VITALS: BP 123/81
--- NOTE | 2017-03-24 13:11 | GI Progress Note ---
Assessment/Plan Problems: (1) Diabetes mellitus out of control ICD Codes: E11.65 - Type 2 diabetes mellitus with hyperglycemia SNOMED: 509227048 (2) Lung mass ICD Codes: R91.8 - Other nonspecific abnormal finding of lung field SNOMED: 188306503 (3) Vomiting ICD Codes: R11.10 - Vomiting, unspecified SNOMED: 560930611 (4) Abdominal pain ICD Codes: R10.9 - Unspecified abdominal pain SNOMED: 15508228 (5) Diarrhea ICD Codes: R19.7 - Diarrhea, unspecified SNOMED: 57947277 Status: unchanged Status Narrative Discussed with Dr. Cedeño. Assessment/Plan Elevated CA19-9 and CEA OB stool negative read CT reviewed stool studies pending EGD/colonoscopy given elevated CEA, weight loss and diarrhea x 8 months. >> REFUSED by patient to have it done tomorrow, request for Friday. - resume diet, prep patient tomorrow for procedure friday. - CLD for lunch tomorrow. DM mgmt ordered Pancrease Lomotil ATC fu stool for fat fu labs Subjective Subjective weight loss diarrhea x 8 months smoker ETOH use socially Objective Last 24 Hour Vital Signs Date Time Temp Pulse Resp B/P Pulse Ox O2 Delivery O2 Flow Rate FiO2 03/24/17 12:00 97.4 74 19 123/81 100 Room Air 03/24/17 08:00 97.9 79 20 108/74 99 Room Air 03/24/17 04:00 97.3 73 18 113/73 100 Room Air 03/24/17 00:26 98.1 78 16 121/84 98 Room Air 03/23/17 21:00 91 15 121/65 100 Room Air 03/23/17 20:00 97.6 80 16 125/107 99 Room Air 03/23/17 20:00 86 03/23/17 19:00 90 18 120/80 100 Room Air 03/23/17 18:00 88 18 118/80 100 Room Air 03/23/17 17:00 91 15 121/65 100 Room Air 03/23/17 16:00 97.8 92 23 113/77 100 Room Air 03/23/17 16:00 89 03/23/17 15:00 91 16 121/65 100 Room Air 03/23/17 14:00 97 16 115/61 100 Room Air Intake and Output 03/23/17 03/24/17 19:00 07:00 Intake Total 2131.28 ml 1700 ml Output Total 200 ml Balance 2131.28 ml 1500 ml Intake Oral 960 ml 600 ml IV Total 1171.28 ml 1100 ml Output Emesis 200 ml # Voids 8 1 # Bowel Movements 7 3 Laboratory Tests Test 03/23/17 14:00 03/23/17 16:20 03/23/17 17:09 03/24/17 05:30 Stool Fat Screen Pending Stool Occult Blood Pending Sodium Level 137 mEQ/L (135-145) 135 mEQ/L (135-145) Potassium Level 3.0 mEQ/L (3.4-4.9) L 4.5 mEQ/L (3.4-4.9) Chloride Level 103 mEQ/L (98-107) 103 mEQ/L (98-107) Carbon Dioxide Level 23 mEQ/L (20-30) 23 mEQ/L (20-30) Anion Gap 11 (5-15) 9 (5-15) Blood Urea Nitrogen 10 mg/dL (7-23) 10 mg/dL (7-23) Creatinine 0.7 mg/dL (0.7-1.2) 0.7 mg/dL (0.7-1.2) Estimat Glomerular Filtration Rate > 60 mL/min (>60) > 60 mL/min (>60) Glucose Level 138 mg/dL (74-106) H 389 mg/dL (74-106) #H Calcium Level 8.9 mg/dL (8.6-10.2) 8.7 mg/dL (8.6-10.2) Amylase Level 12 U/L (10-110) Lipase 15 U/L (< 60) Folate Pending Cryptosporidium Exam (LAB) Pending White Blood Count 6.4 K/UL (4.8-10.8) Red Blood Count 3.48 M/UL (4.70-6.10) L Hemoglobin 12.0 G/DL (14.2-18.0) L Hematocrit 35.5 % (42.0-52.0) L Mean Corpuscular Volume 102 FL (80-99) H Mean Corpuscular Hemoglobin 34.6 PG (27.0-31.0) H Mean Corpuscular Hemoglobin Concent 33.9 G/DL (32.0-36.0) Red Cell Distribution Width 11.5 % (11.6-14.8) L Platelet Count 167 K/UL (150-450) Mean Platelet Volume 7.6 FL (6.5-10.1) Neutrophils (%) (Auto) 48.4 % (45.0-75.0) Lymphocytes (%) (Auto) 44.3 % (20.0-45.0) Monocytes (%) (Auto) 6.0 % (1.0-10.0) Eosinophils (%) (Auto) 0.7 % (0.0-3.0) Basophils (%) (Auto) 0.7 % (0.0-2.0) Phosphorus Level 2.8 mg/dL (2.5-4.8) Magnesium Level 1.9 mg/dL (1.7-2.5) Total Bilirubin 0.3 mg/dL (0.0-1.2) Aspartate Amino Transf (AST/SGOT) 32 U/L (5-40) Alanine Aminotransferase (ALT/SGPT) 26 U/L (3-41) Alkaline Phosphatase 84 U/L (40-129) Total Protein 5.7 g/dL (6.6-8.7) L Albumin 4.0 g/dL (3.5-5.2) Globulin 1.7 g/dL Albumin/Globulin Ratio 2.3 (1.0-2.7) Triglycerides Level 60 mg/dL (< 150) Cholesterol Level 88 mg/dL (< 200) LDL Cholesterol 31 mg/dL (60-99) L HDL Cholesterol 45 mg/dL (> 60) Cholesterol/HDL Ratio 2.0 (3.3-4.4) L Vitamin B12 Level 431 pg/mL (211-946) Microbiology Date/Time Source Procedure Growth Status 03/23/17 14:00 Stool Stool Culture Pending Resulted 03/23/17 14:00 Stool Clostridium difficile Toxin Assay - Final Resulted Height (Feet): 6 Height (Inches): 1.00 Weight (Pounds): 122 General Appearance: no apparent distress, alert, thin Cardiovascular: normal rate Respiratory/Chest: normal breath sounds, no respiratory distress Abdominal Exam: normal bowel sounds, non tender, soft Extremities: normal range of motion Chasity Jacques N.PNicole Mar 24, 2017 13:10
--- NOTE | 2017-03-24 14:28 | Diagnostic Imaging Report ---
APPROVED REPORT CPT Code: 84745 Present Symptoms Comments: R/O DVT BILATERAL: Imaging reveals a patent deep venous system bilaterally. There is no evidence of thrombus within the femoral, popliteal or tibial segments. The greater saphenous veins are also within normal limits. Doppler indicates normal spontaneous flow within these segments.
[2017-03-24 16:00] VITALS: BP 126/85
[2017-03-24] MEDS ORDERED: Bisacodyl EC 5mg tab ORAL ONE (16:00)
[2017-03-24] MEDS ORDERED: Nulytely 4L ORAL ONE (16:00)
--- NOTE | 2017-03-24 17:02 | Infectious Diseases Prog Note ---
Assessment/Plan Assessment/Plan ASSESSMENT: 51 y/o male with insulin dependent DM x7 years, prior imaging demonstrating calcific chronic pancreatitis, and persistently elevated CEA and CA19-9, admitted for DKA, undergoing evaluation for chronic watery diarrhea and significant unintention weight loss resulting in cachexia for which prior evaluation has been non diagnostic. CXR and u/a do not suggest UTI or pneumonia , and patient is afebrile w/o leukocytosis. 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 I think an infectious etiology in for his chronic diarrhea and wasting in this HIV negative patient (HIV neg and multiple prior) w/o known active malignancy and not on immunosuppressant therapy is less likely, but the differential could include Cryptosporidia, Giardia, Cyclospora, or Isospora. Because he's HIV negative, I don't recommend asking for a modified trichrome stain on stool to r/o microsporidia, but the stool O&P with modified acid fast stain is reasonable to look for Cyclospora, Isospora, and Giardia. He lacks a travel history nor any blood in stool that would suggest entamoebic colitis. He has not had any rash or h/o dementia that might suggest pellagra, and he has an alternative explanation for his peripheral neuropathy (DM). //Chronic Diarrhea, watery, non bloody //Cachexia //Unintentional weight loss x 6 months //DKA, no acute infectious cause identified //Pulmonary nodules () and mediasinal LAD, now resolved PLAN: Monitor results of: Stool lactoferrin, Cryptosporidium DFA, Giardia Ag, and Stool Ova and Parasite exam with modified acid fast staining (to r/o Giardia, Cyclospora, and Isospora). further recs pending results of above and fecal fat testing. monitor results of pending EGD/colonoscopy friday for eval of his chronically elevated CEA and CA 19-9. If his evaluation is negative for IBD or chronic malabsorption due to absence of pancreas exocrine function, only then would I consider recommending ruling out Whipple's disease with duodenal bx to look for diastase-resistant, PAS- positive, [id number] granules of intestinal macrophages. Subjective Allergies: Coded Allergies: No Known Allergies (Unverified , 12/17/15) Subjective no change in symptoms from yesterday. transferred out of ICU with closure of anion gap. Objective Vital Signs Last 24 Hour Vital Signs Date Time Temp Pulse Resp B/P Pulse Ox O2 Delivery O2 Flow Rate FiO2 03/24/17 12:00 97.4 74 19 123/81 100 Room Air 03/24/17 08:00 97.9 79 20 108/74 99 Room Air 03/24/17 04:00 97.3 73 18 113/73 100 Room Air 03/24/17 00:26 98.1 78 16 121/84 98 Room Air 03/23/17 21:00 91 15 121/65 100 Room Air 03/23/17 20:00 97.6 80 16 125/107 99 Room Air 03/23/17 20:00 86 03/23/17 19:00 90 18 120/80 100 Room Air 03/23/17 18:00 88 18 118/80 100 Room Air 03/23/17 17:00 91 15 121/65 100 Room Air Height (Feet): 6 Height (Inches): 1.00 Weight (Pounds): 122 General Appearance: no acute distress HEENT: atraumatic, anicteric Objective VITAL SIGNS: reviewed GEN: awake, alert, non toxic appearing HEENT: Mild pale conjunctiva. oral mucosa dry. No icterus. Head, normocephalic. neck supple. angular cheilitis NECK: shotty anterior cervical lymphadenopathy. CHEST: cta b/l. old healed R flank scar from prior empyema HEART: S1 and S2, no murmurs ABDOMEN: scaphoid. No organomegaly. EXTREMITIES: No cyanosis. No BLE. no rash. old healed scars on ble. no picc line in place NEUROLOGIC: awake, alert. No focal neurologic motor deficits. decreased sensation to BLE. : no scrotal edema, no testicular mass, no rash, no discharge from penis. Lymph: subcm non tender b/l axillary nodes. shotty b/l inguinal LAD. rectal: deferred Microbiology Date/Time Source Procedure Growth Status 03/23/17 14:00 Stool Stool Culture Pending Resulted 03/23/17 14:00 Stool Clostridium difficile Toxin Assay - Final Resulted Laboratory Tests Test 03/23/17 17:09 03/24/17 05:30 Cryptosporidium Exam (LAB) Pending White Blood Count 6.4 K/UL (4.8-10.8) Red Blood Count 3.48 M/UL (4.70-6.10) L Hemoglobin 12.0 G/DL (14.2-18.0) L Hematocrit 35.5 % (42.0-52.0) L Mean Corpuscular Volume 102 FL (80-99) H Mean Corpuscular Hemoglobin 34.6 PG (27.0-31.0) H Mean Corpuscular Hemoglobin Concent 33.9 G/DL (32.0-36.0) Red Cell Distribution Width 11.5 % (11.6-14.8) L Platelet Count 167 K/UL (150-450) Mean Platelet Volume 7.6 FL (6.5-10.1) Neutrophils (%) (Auto) 48.4 % (45.0-75.0) Lymphocytes (%) (Auto) 44.3 % (20.0-45.0) Monocytes (%) (Auto) 6.0 % (1.0-10.0) Eosinophils (%) (Auto) 0.7 % (0.0-3.0) Basophils (%) (Auto) 0.7 % (0.0-2.0) Sodium Level 135 mEQ/L (135-145) Potassium Level 4.5 mEQ/L (3.4-4.9) Chloride Level 103 mEQ/L (98-107) Carbon Dioxide Level 23 mEQ/L (20-30) Anion Gap 9 (5-15) Blood Urea Nitrogen 10 mg/dL (7-23) Creatinine 0.7 mg/dL (0.7-1.2) Estimat Glomerular Filtration Rate > 60 mL/min (>60) Glucose Level 389 mg/dL (74-106) #H Calcium Level 8.7 mg/dL (8.6-10.2) Phosphorus Level 2.8 mg/dL (2.5-4.8) Magnesium Level 1.9 mg/dL (1.7-2.5) Total Bilirubin 0.3 mg/dL (0.0-1.2) Aspartate Amino Transf (AST/SGOT) 32 U/L (5-40) Alanine Aminotransferase (ALT/SGPT) 26 U/L (3-41) Alkaline Phosphatase 84 U/L (40-129) Total Protein 5.7 g/dL (6.6-8.7) L Albumin 4.0 g/dL (3.5-5.2) Globulin 1.7 g/dL Albumin/Globulin Ratio 2.3 (1.0-2.7) Triglycerides Level 60 mg/dL (< 150) Cholesterol Level 88 mg/dL (< 200) LDL Cholesterol 31 mg/dL (60-99) L HDL Cholesterol 45 mg/dL (> 60) Cholesterol/HDL Ratio 2.0 (3.3-4.4) L Vitamin B12 Level 431 pg/mL (211-946) Radiology Patient : PEARL CAMP Referring Physician: GISSELLE DALY ID Number: [id number] Service Date: 03/23/17 : 1965 Report Date: 03/23/17 Gender: M Accession No.: [id number] Location: Procedure: CT Chest Abdomen Pelvis W/Cont Indication: Abdominal pain Technique: Patient given oral contrast. Multiphasic spiral acquisitions obtained through the chest, abdomen, and pelvis. Multiplanar reconstructions were generated. Total dose length product 1006 mGycm. CTDIvol(s) 8, 105, 9, 10 mGy. Radiation dose was minimized using automated exposure control Comparison: 10/10/2016 Findings: Generalized mild soft tissue edema, aspect body habitus somewhat limits inherent soft tissue contrast and therefore somewhat limits evaluation. Chest: Small cystic space is again demonstrated in the subpleural posterior right upper lobe. Small pleural-based opacity is again demonstrated at the apex of the right lower lobe. Enlarging pleural-based opacity is seen at the base of the right lower lobe a 4 mm nodular opacity is seen in the inferior left upper lobe, image 35 of series 6. No other left lung opacity demonstrated. Previously demonstrated bilateral parenchymal opacities have cleared. The heart size is normal. No pericardial effusion. No mediastinal or hilar mass or adenopathy. Previously demonstrated pretracheal and subcarinal adenopathy has resolved. No axillary or chest wall mass or adenopathy. Unremarkable esophagus. Abdomen pelvis: The appendix is normal. There is colonic diverticulosis. No evidence of diverticulitis. No small bowel distention. No free or loculated intraperitoneal air or fluid is evident. Liver is mildly enlarged. Low-attenuation area again demonstrated adjacent to the fissure for the ligamentum teres is consistent with focal fatty deposition. The gallbladder is nondistended. There is no biliary ductal dilatation. The pancreas is markedly atrophic, with calcifications and ectasia of the pancreatic duct, also previously demonstrated. The spleen, adrenals, right kidney are unremarkable. Left kidney demonstrates a subcentimeter low-attenuation lesion which is too small to characterize. No pelvic mass or adenopathy. No retroperitoneal or mesenteric mass or adenopathy. The bones are unremarkable. Impression: Generalized mild soft tissue edema again demonstrated, somewhat limits evaluation Since 10/10/2016, interim resolution of most of the previously demonstrated parenchymal opacities. Residual scattered opacities, as described, may reflect post inflammatory changes. Consider further followup CT imaging in 6-12 months of thereis high risk for lung carcinoma Interim resolution of previously demonstrated mediastinal lymphadenopathy. Right upper lung cystic space, may reflect COPD changes Colonic diverticulosis. No evidence of diverticulitis Borderline hepatomegaly Focal hepatic low attenuation, consistent with focal fatty deposition Evidence of chronic ossified pancreatitis, also previously described Subcentimeter low-attenuation left renal lesion, too small to characterize, most likely benign simple cyst. Current Medications Medications (Trade) Dose Ordered Sig/Suzette Route PRN Reason Start Time Stop Time Status Last Admin Dose Admin Acetaminophen (Tylenol) 650 mg Q4H PRN ORAL fever 03/24/17 00:00 04/23/17 00:00 Al Hydroxide/Mg Hydroxide (Mylanta II) 30 ml Q6H PRN ORAL dyspepsia 03/24/17 00:00 04/23/17 00:00 Amylase/Lipase/ Protease (Pancrease) 2 ea THREE TIMES A DAY ORAL 03/24/17 18:00 04/23/17 17:59 Dextrose (Dextrose 50%) STAT PRN IV Hypoglycemia 03/24/17 12:00 04/23/17 11:59 Dextrose/ Electrolytes (D5 0.45%NS W/ KCl 20mEq) 1,000 ml @ 100 mls/hr Q10H IV 03/23/17 22:15 04/22/17 22:14 03/24/17 08:30 Diphenoxylate HCl/ Atropine (Lomotil) 2.5 mg Q4H PRN ORAL Diarrhea 03/24/17 15:45 04/23/17 15:44 Insulin Aspart (NovoLOG) BEFORE MEALS AND HS SUBQ 03/24/17 06:30 04/23/17 06:29 03/24/17 11:57 Insulin Detemir (Levemir) 10 units Q12HR SUBQ 03/24/17 09:00 04/23/17 08:59 03/24/17 10:12 Lorazepam (Ativan 2mg/ml 1ml) 0.5 mg Q4H PRN IV For Anxiety 03/24/17 00:00 03/31/17 00:00 Morphine Sulfate (Morphine Sulfate) 1 mg Q4H PRN IVP For Pain 03/24/17 01:00 03/31/17 00:59 03/24/17 11:50 Ondansetron HCl (Zofran) 4 mg Q6H PRN IVP Nausea & Vomiting 03/24/17 00:00 04/23/17 00:00 Polyethylene Glycol (Miralax) 17 gm HSPRN PRN ORAL Constipation 03/24/17 21:00 04/23/17 20:59 Sodium Phosphate (Fleet's Sodium Phosl Enema) 133 ml ONCE ONCE RECTAL 03/24/17 23:00 03/24/17 23:01 Zolpidem Tartrate (Ambien) 5 mg HSPRN PRN ORAL Insomnia 03/24/17 21:00 04/23/17 20:59 Clifton Galvin M.D. Mar 24, 2017 17:02
[2017-03-24 20:00] VITALS: BP 114/78
[2017-03-24] MEDS: Pancrease Cap ORAL SCH (20:43)
[2017-03-24] MEDS ORDERED: NovoLOG Insulin Flexpen SUBQ SCH (21:00)
[2017-03-24] MEDS ORDERED: Miralax 17gm pkt ORAL PRN (21:00)
[2017-03-24] MEDS ORDERED: Zolpidem 5mg tab ORAL PRN (21:00)
--- NOTE | 2017-03-24 22:46 | General Progress Note ---
Assessment/Plan Assessment/Plan ASSESSMENT/RECS: # Elevated tumor markers CEA and CA 19.9. Currently are slightly higher compared to before --> imaging reviewed, no evidence of occult malignancy at this time, will need reimaging in the future # Anemia secondary to chronic disease. Ferritin is elevated # Bilateral pulmonary masses/opacities - have resolved since prior admission # Cachexia, malnourishment, and weight loss. # Thrombocytopenia, has improved # Leukocytosis, mild. Has improved # BS elevation --> likely diet related # Pneumonia been treated with abx # COPD Subjective Constitutional: Reports: no symptoms HEENT: Reports: no symptoms Cardiovascular: Reports: no symptoms Respiratory: Reports: no symptoms Gastrointestinal/Abdominal: Reports: no symptoms Genitourinary: Reports: no symptoms Neurologic/Psychiatric: Reports: no symptoms Endocrine: Reports: no symptoms Allergies: Coded Allergies: No Known Allergies (Unverified , 12/17/15) Subjective bs is elevated Objective Last 24 Hour Vital Signs Date Time Temp Pulse Resp B/P Pulse Ox O2 Delivery O2 Flow Rate FiO2 03/24/17 20:00 97.8 63 18 114/78 100 Room Air 03/24/17 16:00 97.7 96 19 126/85 03/24/17 12:00 97.4 74 19 123/81 100 Room Air 03/24/17 08:00 97.9 79 20 108/74 99 Room Air 03/24/17 04:00 97.3 73 18 113/73 100 Room Air 03/24/17 00:26 98.1 78 16 121/84 98 Room Air Intake and Output 03/23/17 03/24/17 19:00 07:00 Intake Total 2131.28 ml 1700 ml Output Total 200 ml Balance 2131.28 ml 1500 ml Intake Oral 960 ml 600 ml IV Total 1171.28 ml 1100 ml Output Emesis 200 ml # Voids 8 1 # Bowel Movements 7 3 Laboratory Tests 03/24/17 05:30: White Blood Count 6.4, Red Blood Count 3.48L, Hemoglobin 12.0L, Hematocrit 35.5L , Mean Corpuscular Volume 102H, Mean Corpuscular Hemoglobin 34.6H, Mean Corpuscular Hemoglobin Concent 33.9, Red Cell Distribution Width 11.5L, Platelet Count 167, Mean Platelet Volume 7.6, Neutrophils (%) (Auto) 48.4, Lymphocytes (%) (Auto) 44.3, Monocytes (%) (Auto) 6.0, Eosinophils (%) (Auto) 0.7, Basophils (%) (Auto) 0.7, Sodium Level 135, Potassium Level 4.5, Chloride Level 103, Carbon Dioxide Level 23, Anion Gap 9, Blood Urea Nitrogen 10, Creatinine 0.7, Estimat Glomerular Filtration Rate > 60, Glucose Level 389#H, Calcium Level 8.7, Phosphorus Level 2.8, Magnesium Level 1.9, Total Bilirubin 0.3, Aspartate Amino Transf (AST/SGOT) 32, Alanine Aminotransferase (ALT/SGPT) 26, Alkaline Phosphatase 84, Total Protein 5.7L, Albumin 4.0, Globulin 1.7, Albumin/Globulin Ratio 2.3, Triglycerides Level 60, Cholesterol Level 88, LDL Cholesterol 31L, HDL Cholesterol 45, Cholesterol/HDL Ratio 2.0L, Vitamin B12 Level 431 Height (Feet): 6 Height (Inches): 1.00 Weight (Pounds): 122 General Appearance: alert EENT: normal ENT inspection Neck: normal alignment Cardiovascular: normal rate Respiratory/Chest: normal breath sounds Abdomen: normal bowel sounds Genitourinary/Rectal: normal rectal exam Edema: 1+ Leg (L), 1+ Leg (R) Edema: mild edema Neurologic: alert Skin: warm/dry Kee Nick Mar 24, 2017 22:46
[2017-03-24] MEDS ORDERED: Fleet's Enema 133ml RECTAL ONE (23:00)
[2017-03-25] VITALS: BP 100/70
[2017-03-25 04:00] VITALS: BP 122/81
[2017-03-25] MEDS: D5 1/2NS w/KCl 20mEq 1,000 ML IV SCH (04:30)
[2017-03-25] MEDS: NovoLOG Insulin Flexpen SUBQ SCH ×4 (06:28→20:41)
[2017-03-25 06:32] LABS: BASOPHILS % (AUTO) 0.8 % (0.0-2.0); EOSINOPHILS % (AUTO) 0.7 % (0.0-3.0); MEAN CORPUSCULAR HEMOGLOBIN 35.1 PG (27.0-31.0); MEAN CORPUSCULAR HGB CONC 34.2 G/DL (32.0-36.0); MEAN CORPUSCULAR VOLUME 103 FL (80-99); MEAN PLATELET VOLUME 8.7 FL (6.5-10.1); MONOCYTES % (AUTO) 6.2 % (1.0-10.0); NEUTROPHILS % (AUTO) 59.4 % (45.0-75.0); PLATELET COUNT 142 K/UL (150-450); RED BLOOD COUNT 3.21 M/UL (4.70-6.10); RED CELL DISTRIBUTION WIDTH 11.4 % (11.6-14.8); WHITE BLOOD COUNT 5.7 K/UL (4.8-10.8)
[2017-03-25 06:41] LABS: PROTHROMBIN TIME 10.7 SEC (9.30-11.50)
[2017-03-25 07:26] LABS: ANION GAP 14 (5-15); CALCIUM 8.8 mg/dL (8.6-10.2); CARBON DIOXIDE 19 mEQ/L (20-30); CHLORIDE 102 mEQ/L (98-107); CREATININE 0.5 mg/dL (0.7-1.2); GLOMERULAR FILTRATION RATE > 60 mL/min (>60); HEMOLYSIS 3; POTASSIUM 4.5 mEQ/L (3.4-4.9); SODIUM 135 mEQ/L (135-145)
[2017-03-25 08:00] VITALS: BP 120/84
[2017-03-25] MEDS: 1/2NS w/KCl 20mEq 1000ml 1,000 ML IV SCH ×2 (08:51→18:28)
[2017-03-25] MEDS: Pancrease Cap ORAL SCH ×3 (08:51→17:35)
[2017-03-25] MEDS: Levemir Flexpen SUBQ SCH ×2 (08:53→21:17)
[2017-03-25] MEDS: Lomotil 2.5mg tab ORAL PRN (09:45)
[2017-03-25] MEDS: Morphine Sulfate 2mg/ml Inj IVP PRN ×3 (09:46→22:56)
--- NOTE | 2017-03-25 11:07 | Infectious Diseases Prog Note ---
Assessment/Plan Assessment/Plan ASSESSMENT: 51 y/o male wit Pulmonary nodules () and mediasinal LAD, now resolved chronic watery diarrhea Cachexia Unintentional weight loss x 6 months DM chronic pancreatitis, persistently elevated CEA and CA19-9, SP DKA, PLAN: Monitor results of: Stool lactoferrin, Cryptosporidium DFA, Giardia Ag, and Stool Ova and Parasite exam with modified acid fast staining (to r/o Giardia, Cyclospora, and Isospora). monitor results of pending EGD/colonoscopy Subjective Constitutional: Denies: anorexia, chills, drenching sweats, fatigue, fever, no symptoms, other Allergies: Coded Allergies: No Known Allergies (Unverified , 12/17/15) Objective Vital Signs Last 24 Hour Vital Signs Date Time Temp Pulse Resp B/P Pulse Ox O2 Delivery O2 Flow Rate FiO2 03/25/17 10:16 98.2 03/25/17 08:00 98.2 81 20 120/84 100 Room Air 03/25/17 04:00 97.8 78 18 122/81 100 Room Air 03/25/17 00:00 97.9 84 18 100/70 99 Room Air 03/24/17 20:00 97.8 63 18 114/78 100 Room Air 03/24/17 16:00 97.7 96 19 126/85 03/24/17 12:00 97.4 74 19 123/81 100 Room Air Height (Feet): 6 Height (Inches): 1.00 Weight (Pounds): 122 HEENT: mucous membranes moist Respiratory/Chest: respiratory distress Cardiovascular: no JVD Abdomen: no scars Microbiology Date/Time Source Procedure Growth Status 03/23/17 14:00 Stool Stool Culture - Preliminary NO SALMONELLA,SHIGELLA,OR CAMPYLOBACT... Resulted 03/23/17 14:00 Stool Clostridium difficile Toxin Assay - Final Resulted Laboratory Tests Test 03/25/17 02:00 03/25/17 05:20 03/25/17 05:25 Giardia Antigen Pending White Blood Count 5.7 K/UL (4.8-10.8) Red Blood Count 3.21 M/UL (4.70-6.10) L Hemoglobin 11.2 G/DL (14.2-18.0) L Hematocrit 32.9 % (42.0-52.0) L Mean Corpuscular Volume 103 FL (80-99) H Mean Corpuscular Hemoglobin 35.1 PG (27.0-31.0) H Mean Corpuscular Hemoglobin Concent 34.2 G/DL (32.0-36.0) Red Cell Distribution Width 11.4 % (11.6-14.8) L Platelet Count 142 K/UL (150-450) L Mean Platelet Volume 8.7 FL (6.5-10.1) Neutrophils (%) (Auto) 59.4 % (45.0-75.0) Lymphocytes (%) (Auto) 33.0 % (20.0-45.0) Monocytes (%) (Auto) 6.2 % (1.0-10.0) Eosinophils (%) (Auto) 0.7 % (0.0-3.0) Basophils (%) (Auto) 0.8 % (0.0-2.0) Sodium Level 135 mEQ/L (135-145) Potassium Level 4.5 mEQ/L (3.4-4.9) Chloride Level 102 mEQ/L (98-107) Carbon Dioxide Level 19 mEQ/L (20-30) L Anion Gap 14 (5-15) Blood Urea Nitrogen 9 mg/dL (7-23) Creatinine 0.5 mg/dL (0.7-1.2) L Estimat Glomerular Filtration Rate > 60 mL/min (>60) Glucose Level 325 mg/dL (74-106) H Calcium Level 8.8 mg/dL (8.6-10.2) Prothrombin Time 10.7 SEC (9.30-11.50) Prothromb Time International Ratio 1.0 (0.9-1.1) Activated Partial Thromboplast Time 27 SEC (23-33) Current Medications Medications (Trade) Dose Ordered Sig/Suzette Route PRN Reason Start Time Stop Time Status Last Admin Dose Admin Acetaminophen (Tylenol) 650 mg Q4H PRN ORAL fever 03/24/17 00:00 04/23/17 00:00 Al Hydroxide/Mg Hydroxide (Mylanta II) 30 ml Q6H PRN ORAL dyspepsia 03/24/17 00:00 04/23/17 00:00 Amylase/Lipase/ Protease (Pancrease) 2 ea THREE TIMES A DAY ORAL 03/24/17 18:00 04/23/17 17:59 7/11/17 08:51 Bisacodyl (Dulcolax) 10 mg ONCE ONCE ORAL 03/25/17 16:00 03/25/17 16:01 Dextrose (Dextrose 50%) STAT PRN IV Hypoglycemia 03/24/17 12:00 04/23/17 11:59 Diphenoxylate HCl/ Atropine (Lomotil) 2.5 mg Q4H PRN ORAL Diarrhea 03/24/17 15:45 04/23/17 15:44 03/25/17 09:45 Insulin Aspart AC+HS SUBQ 03/25/17 06:30 04/24/17 06:29 03/25/17 06:28 Insulin Detemir (Levemir) 10 units Q12HR SUBQ 03/24/17 09:00 04/23/17 08:59 03/25/17 08:53 Lorazepam (Ativan 2mg/ml 1ml) 0.5 mg Q4H PRN IV For Anxiety 03/24/17 00:00 03/31/17 00:00 Morphine Sulfate (Morphine Sulfate) 1 mg Q4H PRN IVP For Pain 03/24/17 01:00 03/31/17 00:59 03/25/17 09:46 Ondansetron HCl (Zofran) 4 mg Q6H PRN IVP Nausea & Vomiting 03/24/17 00:00 04/23/17 00:00 Polyethylene Glycol (Miralax) 17 gm HSPRN PRN ORAL Constipation 03/24/17 21:00 04/23/17 20:59 Polyethylene Glycol/ Electrolytes (Nulytely) 4,000 ml ONCE ONCE ORAL 03/25/17 16:00 03/25/17 16:01 Sodium (0.45%NS w/KCl 20mEq 1000ml) 1,000 ml @ 100 mls/hr Q10H IV 03/25/17 09:00 04/24/17 08:59 03/25/17 08:51 Sodium Phosphate (Fleet's Sodium Phosl Enema) 133 ml ONCE ONCE RECTAL 03/25/17 23:00 03/25/17 23:01 Zolpidem Tartrate (Ambien) 5 mg HSPRN PRN ORAL Insomnia 03/24/17 21:00 04/23/17 20:59 EDEN RUIZ M.D. Mar 25, 2017 11:07
[2017-03-25 12:00] VITALS: BP 111/74
--- NOTE | 2017-03-25 12:12 | Pulmonology Progress Note ---
Assessment/Plan Problems: (1) DKA (diabetic ketoacidoses) (2) Chronic diarrhea (3) COPD (chronic obstructive pulmonary disease) (4) Cachectic Assessment/Plan bs better GI and ID f/u appreciated. Subjective ROS Limited/Unobtainable: No Constitutional: Reports: no symptoms HEENT: Repors: no symptoms Respiratory: Reports: no symptoms Allergies: Coded Allergies: No Known Allergies (Unverified , 12/17/15) Objective Last 24 Hour Vital Signs Date Time Temp Pulse Resp B/P Pulse Ox O2 Delivery O2 Flow Rate FiO2 03/25/17 10:16 98.2 03/25/17 08:00 98.2 81 20 120/84 100 Room Air 03/25/17 04:00 97.8 78 18 122/81 100 Room Air 03/25/17 00:00 97.9 84 18 100/70 99 Room Air 03/24/17 20:00 97.8 63 18 114/78 100 Room Air 03/24/17 16:00 97.7 96 19 126/85 Intake and Output 03/24/17 03/25/17 19:00 07:00 Intake Total 850 ml 1900 ml Balance 850 ml 1900 ml Intake Oral 800 ml IV Total 850 ml 1100 ml # Voids 2 7 # Bowel Movements 2 8 General Appearance: WD/WN HEENT: normocephalic Respiratory/Chest: chest wall non-tender, lungs clear Cardiovascular: normal peripheral pulses, normal rate Abdomen: normal bowel sounds, soft, non tender Genitourinary: normal external genitalia Extremities: no clubbing Skin: no lesions, no ulcers Microbiology Date/Time Source Procedure Growth Status 03/23/17 14:00 Stool Stool Culture - Preliminary NO SALMONELLA,SHIGELLA,OR CAMPYLOBACT... Resulted 03/23/17 14:00 Stool Clostridium difficile Toxin Assay - Final Resulted Laboratory Tests 03/25/17 02:00: Giardia Antigen [Pending] 03/25/17 05:20: White Blood Count 5.7, Red Blood Count 3.21L, Hemoglobin 11.2L, Hematocrit 32.9L , Mean Corpuscular Volume 103H, Mean Corpuscular Hemoglobin 35.1H, Mean Corpuscular Hemoglobin Concent 34.2, Red Cell Distribution Width 11.4L, Platelet Count 142L, Mean Platelet Volume 8.7, Neutrophils (%) (Auto) 59.4, Lymphocytes (%) (Auto) 33.0, Monocytes (%) (Auto) 6.2, Eosinophils (%) (Auto) 0.7, Basophils (%) (Auto) 0.8, Sodium Level 135, Potassium Level 4.5, Chloride Level 102, Carbon Dioxide Level 19L, Anion Gap 14, Blood Urea Nitrogen 9, Creatinine 0.5L, Estimat Glomerular Filtration Rate > 60, Glucose Level 325H, Calcium Level 8.8 03/25/17 05:25: Prothrombin Time 10.7, Prothromb Time International Ratio 1.0, Activated Partial Thromboplast Time 27 Current Medications Medications (Trade) Dose Ordered Sig/Suzette Route PRN Reason Start Time Stop Time Status Last Admin Dose Admin Acetaminophen (Tylenol) 650 mg Q4H PRN ORAL fever 03/24/17 00:00 04/23/17 00:00 Al Hydroxide/Mg Hydroxide (Mylanta II) 30 ml Q6H PRN ORAL dyspepsia 03/24/17 00:00 04/23/17 00:00 Amylase/Lipase/ Protease (Pancrease) 2 ea THREE TIMES A DAY ORAL 03/24/17 18:00 04/23/17 17:59 03/25/17 12:07 Bisacodyl (Dulcolax) 10 mg ONCE ONCE ORAL 03/25/17 16:00 03/25/17 16:01 Dextrose (Dextrose 50%) STAT PRN IV Hypoglycemia 03/24/17 12:00 04/23/17 11:59 Diphenoxylate HCl/ Atropine (Lomotil) 2.5 mg Q4H PRN ORAL Diarrhea 03/24/17 15:45 04/23/17 15:44 03/25/17 09:45 Insulin Aspart AC+HS SUBQ 03/25/17 06:30 04/24/17 06:29 03/25/17 12:08 Insulin Detemir (Levemir) 10 units Q12HR SUBQ 03/24/17 09:00 04/23/17 08:59 03/25/17 08:53 Lorazepam (Ativan 2mg/ml 1ml) 0.5 mg Q4H PRN IV For Anxiety 03/24/17 00:00 03/31/17 00:00 Morphine Sulfate (Morphine Sulfate) 1 mg Q4H PRN IVP For Pain 03/24/17 01:00 03/31/17 00:59 03/25/17 09:46 Ondansetron HCl (Zofran) 4 mg Q6H PRN IVP Nausea & Vomiting 03/24/17 00:00 04/23/17 00:00 Polyethylene Glycol (Miralax) 17 gm HSPRN PRN ORAL Constipation 03/24/17 21:00 04/23/17 20:59 Polyethylene Glycol/ Electrolytes (Nulytely) 4,000 ml ONCE ONCE ORAL 03/25/17 16:00 03/25/17 16:01 Sodium (0.45%NS w/KCl 20mEq 1000ml) 1,000 ml @ 100 mls/hr Q10H IV 03/25/17 09:00 04/24/17 08:59 03/25/17 08:51 Sodium Phosphate (Fleet's Sodium Phosl Enema) 133 ml ONCE ONCE RECTAL 03/25/17 23:00 03/25/17 23:01 Zolpidem Tartrate (Ambien) 5 mg HSPRN PRN ORAL Insomnia 03/24/17 21:00 04/23/17 20:59 GISSELLE DALY Mar 25, 2017 12:12
--- NOTE | 2017-03-25 12:13 | Pulmonology Progress Note ---
Assessment/Plan Problems: (1) DKA (diabetic ketoacidoses) (2) Chronic diarrhea (3) COPD (chronic obstructive pulmonary disease) (4) Cachectic Assessment/Plan bs better GI and ID f/u appreciated. for colonoscopy in am check labs stool cultures pending Subjective ROS Limited/Unobtainable: No Constitutional: Reports: no symptoms HEENT: Repors: no symptoms Allergies: Coded Allergies: No Known Allergies (Unverified , 12/17/15) Objective Last 24 Hour Vital Signs Date Time Temp Pulse Resp B/P Pulse Ox O2 Delivery O2 Flow Rate FiO2 03/25/17 10:16 98.2 03/25/17 08:00 98.2 81 20 120/84 100 Room Air 03/25/17 04:00 97.8 78 18 122/81 100 Room Air 03/25/17 00:00 97.9 84 18 100/70 99 Room Air 03/24/17 20:00 97.8 63 18 114/78 100 Room Air 03/24/17 16:00 97.7 96 19 126/85 Intake and Output 03/24/17 03/25/17 19:00 07:00 Intake Total 850 ml 1900 ml Balance 850 ml 1900 ml Intake Oral 800 ml IV Total 850 ml 1100 ml # Voids 2 7 # Bowel Movements 2 8 General Appearance: WD/WN HEENT: normocephalic Respiratory/Chest: chest wall non-tender, normal breath sounds Cardiovascular: normal peripheral pulses, regular rhythm Abdomen: normal bowel sounds, soft, non tender Extremities: no cyanosis, no clubbing Microbiology Date/Time Source Procedure Growth Status 03/23/17 14:00 Stool Stool Culture - Preliminary NO SALMONELLA,SHIGELLA,OR CAMPYLOBACT... Resulted 03/23/17 14:00 Stool Clostridium difficile Toxin Assay - Final Resulted Laboratory Tests 03/25/17 02:00: Giardia Antigen [Pending] 03/25/17 05:20: White Blood Count 5.7, Red Blood Count 3.21L, Hemoglobin 11.2L, Hematocrit 32.9L , Mean Corpuscular Volume 103H, Mean Corpuscular Hemoglobin 35.1H, Mean Corpuscular Hemoglobin Concent 34.2, Red Cell Distribution Width 11.4L, Platelet Count 142L, Mean Platelet Volume 8.7, Neutrophils (%) (Auto) 59.4, Lymphocytes (%) (Auto) 33.0, Monocytes (%) (Auto) 6.2, Eosinophils (%) (Auto) 0.7, Basophils (%) (Auto) 0.8, Sodium Level 135, Potassium Level 4.5, Chloride Level 102, Carbon Dioxide Level 19L, Anion Gap 14, Blood Urea Nitrogen 9, Creatinine 0.5L, Estimat Glomerular Filtration Rate > 60, Glucose Level 325H, Calcium Level 8.8 03/25/17 05:25: Prothrombin Time 10.7, Prothromb Time International Ratio 1.0, Activated Partial Thromboplast Time 27 Current Medications Medications (Trade) Dose Ordered Sig/Suzette Route PRN Reason Start Time Stop Time Status Last Admin Dose Admin Acetaminophen (Tylenol) 650 mg Q4H PRN ORAL fever 03/24/17 00:00 04/23/17 00:00 Al Hydroxide/Mg Hydroxide (Mylanta II) 30 ml Q6H PRN ORAL dyspepsia 03/24/17 00:00 04/23/17 00:00 Amylase/Lipase/ Protease (Pancrease) 2 ea THREE TIMES A DAY ORAL 03/24/17 18:00 04/23/17 17:59 03/25/17 12:07 Bisacodyl (Dulcolax) 10 mg ONCE ONCE ORAL 03/25/17 16:00 03/25/17 16:01 Dextrose (Dextrose 50%) STAT PRN IV Hypoglycemia 03/24/17 12:00 04/23/17 11:59 Diphenoxylate HCl/ Atropine (Lomotil) 2.5 mg Q4H PRN ORAL Diarrhea 03/24/17 15:45 04/23/17 15:44 03/25/17 09:45 Insulin Aspart AC+HS SUBQ 03/25/17 06:30 04/24/17 06:29 03/25/17 12:08 Insulin Detemir (Levemir) 10 units Q12HR SUBQ 03/24/17 09:00 04/23/17 08:59 03/25/17 08:53 Lorazepam (Ativan 2mg/ml 1ml) 0.5 mg Q4H PRN IV For Anxiety 03/24/17 00:00 03/31/17 00:00 Morphine Sulfate (Morphine Sulfate) 1 mg Q4H PRN IVP For Pain 03/24/17 01:00 03/31/17 00:59 03/25/17 09:46 Ondansetron HCl (Zofran) 4 mg Q6H PRN IVP Nausea & Vomiting 03/24/17 00:00 04/23/17 00:00 Polyethylene Glycol (Miralax) 17 gm HSPRN PRN ORAL Constipation 03/24/17 21:00 04/23/17 20:59 Polyethylene Glycol/ Electrolytes (Nulytely) 4,000 ml ONCE ONCE ORAL 03/25/17 16:00 03/25/17 16:01 Sodium (0.45%NS w/KCl 20mEq 1000ml) 1,000 ml @ 100 mls/hr Q10H IV 03/25/17 09:00 04/24/17 08:59 03/25/17 08:51 Sodium Phosphate (Fleet's Sodium Phosl Enema) 133 ml ONCE ONCE RECTAL 03/25/17 23:00 03/25/17 23:01 Zolpidem Tartrate (Ambien) 5 mg HSPRN PRN ORAL Insomnia 03/24/17 21:00 04/23/17 20:59 GISSELLE DALY Mar 25, 2017 12:13
--- NOTE | 2017-03-25 14:20 | GI Progress Note ---
Assessment/Plan Problems: (1) Diabetes mellitus out of control ICD Codes: E11.65 - Type 2 diabetes mellitus with hyperglycemia SNOMED: 949992912 (2) Lung mass ICD Codes: R91.8 - Other nonspecific abnormal finding of lung field SNOMED: 791895200 (3) Vomiting ICD Codes: R11.10 - Vomiting, unspecified SNOMED: 547676756 (4) Abdominal pain ICD Codes: R10.9 - Unspecified abdominal pain SNOMED: 70576393 (5) Diarrhea ICD Codes: R19.7 - Diarrhea, unspecified SNOMED: 01257762 Status: unchanged Status Narrative Discussed with Dr. Cedeño. Assessment/Plan Elevated CA19-9 and CEA OB stool negative cdiff negative stool culture negative read CT reviewed hep panel negative EGD/colonoscopy scheduled tomorrow given elevated CEA, weight loss and diarrhea x 8 months. - CLD, NPO @ [place]. - hold all blood thinners DM mgmt pancrease Lomotil prn fu stool for fat fu labs Subjective Subjective weight loss diarrhea x 8 months smoker ETOH use socially Objective Last 24 Hour Vital Signs Date Time Temp Pulse Resp B/P Pulse Ox O2 Delivery O2 Flow Rate FiO2 03/25/17 12:00 98.2 87 20 111/74 99 Room Air 03/25/17 10:16 98.2 03/25/17 08:00 98.2 81 20 120/84 100 Room Air 03/25/17 04:00 97.8 78 18 122/81 100 Room Air 03/25/17 00:00 97.9 84 18 100/70 99 Room Air 03/24/17 20:00 97.8 63 18 114/78 100 Room Air 03/24/17 16:00 97.7 96 19 126/85 Intake and Output 03/24/17 03/25/17 19:00 07:00 Intake Total 850 ml 1900 ml Balance 850 ml 1900 ml Intake Oral 800 ml IV Total 850 ml 1100 ml # Voids 2 7 # Bowel Movements 2 8 Laboratory Tests Test 03/25/17 02:00 03/25/17 05:20 03/25/17 05:25 Giardia Antigen Pending White Blood Count 5.7 K/UL (4.8-10.8) Red Blood Count 3.21 M/UL (4.70-6.10) L Hemoglobin 11.2 G/DL (14.2-18.0) L Hematocrit 32.9 % (42.0-52.0) L Mean Corpuscular Volume 103 FL (80-99) H Mean Corpuscular Hemoglobin 35.1 PG (27.0-31.0) H Mean Corpuscular Hemoglobin Concent 34.2 G/DL (32.0-36.0) Red Cell Distribution Width 11.4 % (11.6-14.8) L Platelet Count 142 K/UL (150-450) L Mean Platelet Volume 8.7 FL (6.5-10.1) Neutrophils (%) (Auto) 59.4 % (45.0-75.0) Lymphocytes (%) (Auto) 33.0 % (20.0-45.0) Monocytes (%) (Auto) 6.2 % (1.0-10.0) Eosinophils (%) (Auto) 0.7 % (0.0-3.0) Basophils (%) (Auto) 0.8 % (0.0-2.0) Sodium Level 135 mEQ/L (135-145) Potassium Level 4.5 mEQ/L (3.4-4.9) Chloride Level 102 mEQ/L (98-107) Carbon Dioxide Level 19 mEQ/L (20-30) L Anion Gap 14 (5-15) Blood Urea Nitrogen 9 mg/dL (7-23) Creatinine 0.5 mg/dL (0.7-1.2) L Estimat Glomerular Filtration Rate > 60 mL/min (>60) Glucose Level 325 mg/dL (74-106) H Calcium Level 8.8 mg/dL (8.6-10.2) Prothrombin Time 10.7 SEC (9.30-11.50) Prothromb Time International Ratio 1.0 (0.9-1.1) Activated Partial Thromboplast Time 27 SEC (23-33) Height (Feet): 6 Height (Inches): 1.00 Weight (Pounds): 122 General Appearance: no apparent distress, alert, thin Cardiovascular: normal rate Respiratory/Chest: normal breath sounds, no respiratory distress Abdominal Exam: normal bowel sounds, non tender, soft Extremities: normal range of motion Chasity Jacques N.P. Mar 25, 2017 14:20
[2017-03-25 16:00] VITALS: BP 107/77
[2017-03-25] MEDS ORDERED: Nulytely 4L ORAL ONE ×2 (16:00)
[2017-03-25] MEDS ORDERED: Bisacodyl EC 5mg tab ORAL ONE (16:00)
--- NOTE | 2017-03-25 19:52 | General Progress Note ---
Assessment/Plan Assessment/Plan ASSESSMENT/RECS: # Elevated tumor markers CEA and CA 19.9. Currently are slightly higher compared to before --> imaging reviewed, no evidence of occult malignancy at this time, will need reimaging in the future --> colo and egd for tomorrow # Anemia secondary to chronic disease. Ferritin elevated # Bilateral pulmonary masses/opacities - have resolved since prior admission # Cachexia, malnourishment, and weight loss. # Thrombocytopenia, has improved # Leukocytosis, mild. Has improved # BS elevation --> likely diet related # Pneumonia been treated with abx # COPD Subjective Constitutional: Reports: no symptoms HEENT: Reports: no symptoms Cardiovascular: Reports: no symptoms Respiratory: Reports: no symptoms Gastrointestinal/Abdominal: Reports: no symptoms Genitourinary: Reports: no symptoms Neurologic/Psychiatric: Reports: no symptoms Endocrine: Reports: no symptoms Hematologic/Lymphatic: Reports: anemia Allergies: Coded Allergies: No Known Allergies (Unverified , 12/17/15) Subjective bs is elevated, no fevers, no chills, no nights Objective Last 24 Hour Vital Signs Date Time Temp Pulse Resp B/P Pulse Ox O2 Delivery O2 Flow Rate FiO2 03/25/17 16:00 97.7 76 18 107/77 100 Room Air 03/25/17 12:00 98.2 87 20 111/74 99 Room Air 03/25/17 10:16 98.2 03/25/17 08:00 98.2 81 20 120/84 100 Room Air 03/25/17 04:00 97.8 78 18 122/81 100 Room Air 03/25/17 00:00 97.9 84 18 100/70 99 Room Air 03/24/17 20:00 97.8 63 18 114/78 100 Room Air Intake and Output 03/24/17 03/25/17 19:00 07:00 Intake Total 850 ml 1900 ml Balance 850 ml 1900 ml Intake Oral 800 ml IV Total 850 ml 1100 ml # Voids 2 7 # Bowel Movements 2 8 Laboratory Tests 03/25/17 02:00: Giardia Antigen [Pending] 03/25/17 05:20: White Blood Count 5.7, Red Blood Count 3.21L, Hemoglobin 11.2L, Hematocrit 32.9L , Mean Corpuscular Volume 103H, Mean Corpuscular Hemoglobin 35.1H, Mean Corpuscular Hemoglobin Concent 34.2, Red Cell Distribution Width 11.4L, Platelet Count 142L, Mean Platelet Volume 8.7, Neutrophils (%) (Auto) 59.4, Lymphocytes (%) (Auto) 33.0, Monocytes (%) (Auto) 6.2, Eosinophils (%) (Auto) 0.7, Basophils (%) (Auto) 0.8, Sodium Level 135, Potassium Level 4.5, Chloride Level 102, Carbon Dioxide Level 19L, Anion Gap 14, Blood Urea Nitrogen 9, Creatinine 0.5L, Estimat Glomerular Filtration Rate > 60, Glucose Level 325H, Calcium Level 8.8 03/25/17 05:25: Prothrombin Time 10.7, Prothromb Time International Ratio 1.0, Activated Partial Thromboplast Time 27 Height (Feet): 6 Height (Inches): 1.00 Weight (Pounds): 122 General Appearance: alert EENT: TMs normal Neck: supple Cardiovascular: regular rhythm Respiratory/Chest: normal breath sounds Abdomen: no mass Extremities: non-tender Neurologic: alert Skin: warm/dry Kee Nick Mar 25, 2017 19:52
[2017-03-25 20:00] VITALS: BP 121/82
[2017-03-25] MEDS ORDERED: Fleet's Enema 133ml RECTAL ONE (23:00)
[2017-03-26] VITALS (10 sets, daily range): BP systolic 98–124; BP diastolic 62–84
[2017-03-26] MEDS: 1/2NS w/KCl 20mEq 1000ml 1,000 ML IV SCH ×2 (04:52→14:53)
[2017-03-26] MEDS: NovoLOG Insulin Flexpen SUBQ SCH ×7 (06:14→20:10)
[2017-03-26 07:16] LABS: BASOPHILS % (AUTO) 0.5 % (0.0-2.0); EOSINOPHILS % (AUTO) 0.7 % (0.0-3.0); LYMPHOCYTES % (AUTO) 44.9 % (20.0-45.0); MEAN CORPUSCULAR HEMOGLOBIN 35.6 PG (27.0-31.0); MEAN CORPUSCULAR HGB CONC 34.6 G/DL (32.0-36.0); MEAN CORPUSCULAR VOLUME 103 FL (80-99); MEAN PLATELET VOLUME 8.2 FL (6.5-10.1); MONOCYTES % (AUTO) 5.6 % (1.0-10.0); NEUTROPHILS % (AUTO) 48.3 % (45.0-75.0); PLATELET COUNT 151 K/UL (150-450); RED BLOOD COUNT 3.11 M/UL (4.70-6.10); RED CELL DISTRIBUTION WIDTH 11.6 % (11.6-14.8)
[2017-03-26 07:22] LABS: PROTHROMBIN TIME 10.5 SEC (9.30-11.50)
[2017-03-26 07:29] LABS: ANION GAP 9 (5-15); CALCIUM 8.6 mg/dL (8.6-10.2); CARBON DIOXIDE 24 mEQ/L (20-30); CHLORIDE 106 mEQ/L (98-107); CREATININE 0.6 mg/dL (0.7-1.2); GLOMERULAR FILTRATION RATE > 60 mL/min (>60); HEMOLYSIS 5; POTASSIUM 4.3 mEQ/L (3.4-4.9); SODIUM 139 mEQ/L (135-145)
[2017-03-26] MEDS ORDERED: Lidocaine 1% MPF 10mg/ml 5ml ONE (07:30)
[2017-03-26] MEDS ORDERED: Propofol 10mg/ml 20ml IV ONE (07:30)
--- NOTE | 2017-03-26 07:41 | Anethesia Preoperative Eval ---
Anesthesia Pre-op PMH/ROS General Date of Evaluation: Mar 26, 2017 Time of Evaluation: 07:38 Anesthesiologist: omar ASA Score: ASA 3 Mallampati Score Class I : Soft palate, uvula, fauces, pillars visible Class II: Soft palate, uvula, fauces visible Class III: Soft palate, base of uvula visible Class IV: Only hard plate visible Mallampati Classification: Class II Surgeon: kaci Diagnosis: elevated CEA Surgical Procedure: egd/colonoscopy Anesthesia History: none Family History: no anesthesia problems Allergies: Coded Allergies: No Known Allergies (Unverified , 12/17/15) Medications: see eMAR Past Medical History Pulmonary: Reports: COPD Neurologic/Psychiatric: Reports: other - etoh use, peripheral neuropathy Endocrine: Reports: DM Anesthesia Pre-op Phys. Exam Physician Exam Labs Test 03/23/17 09:34 03/23/17 09:45 03/23/17 11:30 03/23/17 14:00 Arterial Blood pH 7.380 (7.350-7.450) Arterial Blood Partial Pressure CO2 35.3 mmHg (35.0-45.0) Arterial Blood Partial Pressure O2 93.4 mmHg (75.0-100.0) Arterial Blood HCO3 20.7 mmol/L (22.0-26.0) Arterial Blood Oxygen Saturation 96.1 % (92.0-98.0) Arterial Blood Base Excess -3.7 Cedrick Test Positive White Blood Count 6.9 K/UL (4.8-10.8) Red Blood Count 3.62 M/UL (4.70-6.10) Hemoglobin 12.6 G/DL (14.2-18.0) Hematocrit 36.4 % (42.0-52.0) Mean Corpuscular Volume 101 FL (80-99) Mean Corpuscular Hemoglobin 34.8 PG (27.0-31.0) Mean Corpuscular Hemoglobin Concent 34.6 G/DL (32.0-36.0) Red Cell Distribution Width 11.2 % (11.6-14.8) Platelet Count 178 K/UL (150-450) Mean Platelet Volume 8.0 FL (6.5-10.1) Neutrophils (%) (Auto) 59.5 % (45.0-75.0) Lymphocytes (%) (Auto) 32.3 % (20.0-45.0) Monocytes (%) (Auto) 6.8 % (1.0-10.0) Eosinophils (%) (Auto) 0.5 % (0.0-3.0) Basophils (%) (Auto) 0.9 % (0.0-2.0) Sodium Level 142 mEQ/L (135-145) Potassium Level 2.9 mEQ/L (3.4-4.9) Chloride Level 103 mEQ/L (98-107) Carbon Dioxide Level 21 mEQ/L (20-30) Anion Gap 18 (5-15) Blood Urea Nitrogen 9 mg/dL (7-23) Creatinine 0.5 mg/dL (0.7-1.2) Estimat Glomerular Filtration Rate > 60 mL/min (>60) Glucose Level 141 mg/dL (74-106) Lactic Acid Level 2.00 mmol/L (0.66-2.22) Calcium Level 8.9 mg/dL (8.6-10.2) Phosphorus Level 3.3 mg/dL (2.5-4.8) Magnesium Level 1.6 mg/dL (1.7-2.5) Total Bilirubin 0.8 mg/dL (0.0-1.2) Aspartate Amino Transf (AST/SGOT) 25 U/L (5-40) Alanine Aminotransferase (ALT/SGPT) 23 U/L (3-41) Alkaline Phosphatase 75 U/L (40-129) Lactate Dehydrogenase 150 U/L (135-230) Total Protein 6.0 g/dL (6.6-8.7) Albumin 3.8 g/dL (3.5-5.2) Globulin 2.2 g/dL Albumin/Globulin Ratio 1.7 (1.0-2.7) Triglycerides Level 81 mg/dL (< 150) Cholesterol Level 84 mg/dL (< 200) LDL Cholesterol 31 mg/dL (60-99) HDL Cholesterol 37 mg/dL (> 60) Cholesterol/HDL Ratio 2.3 (3.3-4.4) Hepatitis A IgM Antibody Negative (Negative) Hepatitis B Surface Antigen Negative (Negative) Hepatitis B Core IgM Antibody Negative (Negative) Hepatitis C Antibody 0.1 s/co ratio (0.0-0.9) Stool Occult Blood Negative (NEGATIVE) Negative (NEGATIVE) Test 03/23/17 16:20 79/17 17:09 03/24/17 05:30 03/25/17 02:00 Sodium Level 137 mEQ/L (135-145) 135 mEQ/L (135-145) Potassium Level 3.0 mEQ/L (3.4-4.9) 4.5 mEQ/L (3.4-4.9) Chloride Level 103 mEQ/L (98-107) 103 mEQ/L (98-107) Carbon Dioxide Level 23 mEQ/L (20-30) 23 mEQ/L (20-30) Anion Gap 11 (5-15) 9 (5-15) Blood Urea Nitrogen 10 mg/dL (7-23) 10 mg/dL (7-23) Creatinine 0.7 mg/dL (0.7-1.2) 0.7 mg/dL (0.7-1.2) Estimat Glomerular Filtration Rate > 60 mL/min (>60) > 60 mL/min (>60) Glucose Level 138 mg/dL (74-106) 389 mg/dL (74-106) Calcium Level 8.9 mg/dL (8.6-10.2) 8.7 mg/dL (8.6-10.2) Amylase Level 12 U/L (10-110) Lipase 15 U/L (< 60) Folate 17.3 ng/mL (>3.0) White Blood Count 6.4 K/UL (4.8-10.8) Red Blood Count 3.48 M/UL (4.70-6.10) Hemoglobin 12.0 G/DL (14.2-18.0) Hematocrit 35.5 % (42.0-52.0) Mean Corpuscular Volume 102 FL (80-99) Mean Corpuscular Hemoglobin 34.6 PG (27.0-31.0) Mean Corpuscular Hemoglobin Concent 33.9 G/DL (32.0-36.0) Red Cell Distribution Width 11.5 % (11.6-14.8) Platelet Count 167 K/UL (150-450) Mean Platelet Volume 7.6 FL (6.5-10.1) Neutrophils (%) (Auto) 48.4 % (45.0-75.0) Lymphocytes (%) (Auto) 44.3 % (20.0-45.0) Monocytes (%) (Auto) 6.0 % (1.0-10.0) Eosinophils (%) (Auto) 0.7 % (0.0-3.0) Basophils (%) (Auto) 0.7 % (0.0-2.0) Phosphorus Level 2.8 mg/dL (2.5-4.8) Magnesium Level 1.9 mg/dL (1.7-2.5) Total Bilirubin 0.3 mg/dL (0.0-1.2) Aspartate Amino Transf (AST/SGOT) 32 U/L (5-40) Alanine Aminotransferase (ALT/SGPT) 26 U/L (3-41) Alkaline Phosphatase 84 U/L (40-129) Total Protein 5.7 g/dL (6.6-8.7) Albumin 4.0 g/dL (3.5-5.2) Globulin 1.7 g/dL Albumin/Globulin Ratio 2.3 (1.0-2.7) Triglycerides Level 60 mg/dL (< 150) Cholesterol Level 88 mg/dL (< 200) LDL Cholesterol 31 mg/dL (60-99) HDL Cholesterol 45 mg/dL (> 60) Cholesterol/HDL Ratio 2.0 (3.3-4.4) Vitamin B12 Level 431 pg/mL (211-946) Test 03/25/17 05:20 03/25/17 05:25 03/26/17 06:20 White Blood Count 5.7 K/UL (4.8-10.8) 5.0 K/UL (4.8-10.8) Red Blood Count 3.21 M/UL (4.70-6.10) 3.11 M/UL (4.70-6.10) Hemoglobin 11.2 G/DL (14.2-18.0) 11.1 G/DL (14.2-18.0) Hematocrit 32.9 % (42.0-52.0) 32.1 % (42.0-52.0) Mean Corpuscular Volume 103 FL (80-99) 103 FL (80-99) Mean Corpuscular Hemoglobin 35.1 PG (27.0-31.0) 35.6 PG (27.0-31.0) Mean Corpuscular Hemoglobin Concent 34.2 G/DL (32.0-36.0) 34.6 G/DL (32.0-36.0) Red Cell Distribution Width 11.4 % (11.6-14.8) 11.6 % (11.6-14.8) Platelet Count 142 K/UL (150-450) 151 K/UL (150-450) Mean Platelet Volume 8.7 FL (6.5-10.1) 8.2 FL (6.5-10.1) Neutrophils (%) (Auto) 59.4 % (45.0-75.0) 48.3 % (45.0-75.0) Lymphocytes (%) (Auto) 33.0 % (20.0-45.0) 44.9 % (20.0-45.0) Monocytes (%) (Auto) 6.2 % (1.0-10.0) 5.6 % (1.0-10.0) Eosinophils (%) (Auto) 0.7 % (0.0-3.0) 0.7 % (0.0-3.0) Basophils (%) (Auto) 0.8 % (0.0-2.0) 0.5 % (0.0-2.0) Sodium Level 135 mEQ/L (135-145) 139 mEQ/L (135-145) Potassium Level 4.5 mEQ/L (3.4-4.9) 4.3 mEQ/L (3.4-4.9) Chloride Level 102 mEQ/L (98-107) 106 mEQ/L (98-107) Carbon Dioxide Level 19 mEQ/L (20-30) 24 mEQ/L (20-30) Anion Gap 14 (5-15) 9 (5-15) Blood Urea Nitrogen 9 mg/dL (7-23) 5 mg/dL (7-23) Creatinine 0.5 mg/dL (0.7-1.2) 0.6 mg/dL (0.7-1.2) Estimat Glomerular Filtration Rate > 60 mL/min (>60) > 60 mL/min (>60) Glucose Level 325 mg/dL (74-106) 101 mg/dL (74-106) Calcium Level 8.8 mg/dL (8.6-10.2) 8.6 mg/dL (8.6-10.2) Prothrombin Time 10.7 SEC (9.30-11.50) 10.5 SEC (9.30-11.50) Prothromb Time International Ratio 1.0 (0.9-1.1) 1.0 (0.9-1.1) Activated Partial Thromboplast Time 27 SEC (23-33) 26 SEC (23-33) Constitutional: NAD Neurologic: CN 2-12 intact Cardiovascular: RRR Respiratory: CTA Airway Exam Mallampati Score: Class II MO: full Neck: supple TMD: 2fb ROM: full Teeth: loose - last one on top in the back according to patient Anesthesia Pre-op A/P Labs Hematology Test 03/26/17 06:20 White Blood Count 5.0 K/UL (4.8-10.8) Red Blood Count 3.11 M/UL (4.70-6.10) L Hemoglobin 11.1 G/DL (14.2-18.0) L Hematocrit 32.1 % (42.0-52.0) L Mean Corpuscular Volume 103 FL (80-99) H Mean Corpuscular Hemoglobin 35.6 PG (27.0-31.0) H Mean Corpuscular Hemoglobin Concent 34.6 G/DL (32.0-36.0) Red Cell Distribution Width 11.6 % (11.6-14.8) Platelet Count 151 K/UL (150-450) Mean Platelet Volume 8.2 FL (6.5-10.1) Neutrophils (%) (Auto) 48.3 % (45.0-75.0) Lymphocytes (%) (Auto) 44.9 % (20.0-45.0) Monocytes (%) (Auto) 5.6 % (1.0-10.0) Eosinophils (%) (Auto) 0.7 % (0.0-3.0) Basophils (%) (Auto) 0.5 % (0.0-2.0) Coagulation Test 03/26/17 06:20 Prothrombin Time 10.5 SEC (9.30-11.50) Prothromb Time International Ratio 1.0 (0.9-1.1) Activated Partial Thromboplast Time 26 SEC (23-33) Chemistry Test 03/26/17 06:20 Sodium Level 139 mEQ/L (135-145) Potassium Level 4.3 mEQ/L (3.4-4.9) Chloride Level 106 mEQ/L (98-107) Carbon Dioxide Level 24 mEQ/L (20-30) Anion Gap 9 (5-15) Blood Urea Nitrogen 5 mg/dL (7-23) L Creatinine 0.6 mg/dL (0.7-1.2) L Estimat Glomerular Filtration Rate > 60 mL/min (>60) Glucose Level 101 mg/dL (74-106) # Calcium Level 8.6 mg/dL (8.6-10.2) Risk Assessment & Plan Assessment: elevated CEA Plan: egd/colonoscopy Status Change Before Surgery: No Pre-Antibiotics Drug: TRE Schmitt Mar 26, 2017 07:41
--- NOTE | 2017-03-26 07:52 | Pre-Procedure Note/Attestation ---
Pre-Procedure Note/Attestation Complete Prior to Procedure Planned Procedure: not applicable Procedure Narrative: egd/colon Indications for Procedure Pre-Operative Diagnosis: elevated CEA Attestation I attest that I discussed the nature of the procedure; its benefits; risks and complications; and alternatives (and the risks and benefits of such alternatives ), prior to the procedure, with the patient (or the patient's legal roofing sales representative). I attest that, if there was a reasonable possibility of needing a blood transfusion, the patient (or the patient's legal roofing sales representative) was given the [facility] standardized written summary, pursuant to the Shlomo Edvin Blood Safety Act ([place] Health and Safety Code # 1645, as amended). I attest that I re-evaluated the patient just prior to the surgery and that there has been no change in the patient's H&P, except as documented below: ANA FROST Mar 26, 2017 07:52
[2017-03-26] MEDS ORDERED: Atropine Inj 1mg/10ml Syr IV PRN (08:00)
[2017-03-26] MEDS ORDERED: DiphenhydrAMINE 50mg/ml Inj IVP PRN (08:00)
[2017-03-26] MEDS ORDERED: Hydromorphone 0.5mg/0.5ml inj IVP PRN (08:00)
[2017-03-26] MEDS ORDERED: NS 550ML IV ONE (08:00)
[2017-03-26] MEDS ORDERED: Midazolam 2mg/2ml Inj IVP PRN (08:00)
--- NOTE | 2017-03-26 08:18 | Immediate Post-Op Evaluation ---
Immediate Post-Op Evalulation Immediate Post-Op Evalulation Procedure: egd/colonoscopy Date of Evaluation: Mar 26, 2017 Time of Evaluation: 08:51 IV Fluids: 0.9 ns Blood Products: none Estimated Blood Loss: negligible Blood Pressure Systolic: 105 Blood Pressure Diastolic: 70 Pulse Rate: 63 Respiratory Rate: 18 O2 Sat by Pulse Oximetry: 100 Temperature (Fahrenheit): 97.5 Pain Score (1-10): 0 Nausea: No Vomiting: No Complications none Patient Status: awake, reacts, patent Hydration Status: adequate Drug: TRE Schmitt Mar 26, 2017 08:18
--- NOTE | 2017-03-26 08:43 | Endoscopy Procedure Note ---
Endoscopy Procedure Note Indication for Procedure: anemia, elevated cEA Procedures Performed: EGD, colonoscopy Operative Findings/Diagnosis: michelle esophagitis, colon polyp x2 Specimen: yes Pt Tolerated Procedure Well: Yes Estimated Blood Loss: none Anesthesiologist: callie sales Anesthesia: MAC Implant(s) used?: No 50 yrs or older w/o bx or poly: Not Applicable 10yrs. F/U not recommended: Not Applicable ANA FROST Mar 26, 2017 08:43
[2017-03-26] MEDS ORDERED: Fluconazole 100mg tab ORAL SCH (09:30)
[2017-03-26] MEDS: Pancrease Cap ORAL SCH ×3 (09:54→17:24)
[2017-03-26] MEDS: Levemir Flexpen SUBQ SCH ×2 (09:57→20:17)
[2017-03-26] MEDS: Morphine Sulfate 2mg/ml Inj IVP PRN ×2 (11:37→16:57)
[2017-03-26] MEDS ORDERED: PANCREASE1 EA ORAL (14:34)
--- NOTE | 2017-03-26 14:51 | Pulmonology Progress Note ---
Assessment/Plan Problems: (1) DKA (diabetic ketoacidoses) (2) Chronic diarrhea (3) COPD (chronic obstructive pulmonary disease) (4) Cachectic Assessment/Plan bs better GI and ID f/u appreciated. colonoscopy done, showed only michelle esophagitis, colon intract stool for ova/parasites pending Subjective Constitutional: Reports: no symptoms Respiratory: Reports: no symptoms Allergies: Coded Allergies: No Known Allergies (Unverified , 12/17/15) Objective Last 24 Hour Vital Signs Date Time Temp Pulse Resp B/P Pulse Ox O2 Delivery O2 Flow Rate FiO2 03/26/17 12:07 97.5 03/26/17 11:42 97.5 69 20 98/62 97 Room Air 03/26/17 09:30 98.1 64 20 124/82 100 Room Air 03/26/17 09:06 63 18 100 03/26/17 09:00 68 20 113/84 100 Room Air 03/26/17 08:50 71 20 108/82 100 Room Air 03/26/17 08:40 63 20 105/70 100 Nasal Cannula 2.0 03/26/17 08:35 97.6 66 20 111/71 100 Nasal Cannula 2.0 03/26/17 08:17 97.9 58 18 117/81 100 Room Air 03/26/17 04:00 96.7 63 18 121/83 99 Room Air 03/26/17 00:00 96.6 72 20 105/77 100 Room Air 03/25/17 20:00 96.4 63 19 121/82 98 Room Air 03/25/17 16:00 97.7 76 18 107/77 100 Room Air Intake and Output 03/25/17 03/26/17 19:00 07:00 Intake Total 1130 ml 1560 ml Balance 1130 ml 1560 ml Intake Oral 1130 ml 360 ml IV Total 1200 ml # Voids 2 7 # Bowel Movements 4 10 General Appearance: WD/WN HEENT: normocephalic, anicteric Respiratory/Chest: chest wall non-tender, lungs clear Cardiovascular: normal peripheral pulses, normal rate Abdomen: normal bowel sounds, soft, non tender Extremities: no cyanosis, no clubbing Skin: no lesions Microbiology Date/Time Source Procedure Growth Status 03/23/17 17:09 Stool Ova and Parasites - Final Complete 03/23/17 17:09 Stool Ova and Parasite Result 1 - Final Complete Laboratory Tests 03/26/17 06:20: White Blood Count 5.0, Red Blood Count 3.11L, Hemoglobin 11.1L, Hematocrit 32.1L , Mean Corpuscular Volume 103H, Mean Corpuscular Hemoglobin 35.6H, Mean Corpuscular Hemoglobin Concent 34.6, Red Cell Distribution Width 11.6, Platelet Count 151, Mean Platelet Volume 8.2, Neutrophils (%) (Auto) 48.3, Lymphocytes (% ) (Auto) 44.9, Monocytes (%) (Auto) 5.6, Eosinophils (%) (Auto) 0.7, Basophils ( %) (Auto) 0.5, Prothrombin Time 10.5, Prothromb Time International Ratio 1.0, Activated Partial Thromboplast Time 26, Sodium Level 139, Potassium Level 4.3, Chloride Level 106, Carbon Dioxide Level 24, Anion Gap 9, Blood Urea Nitrogen 5L , Creatinine 0.6L, Estimat Glomerular Filtration Rate > 60, Glucose Level 101#, Calcium Level 8.6, HIV (1&2) Antibody Rapid Negative Current Medications Medications (Trade) Dose Ordered Sig/Suzette Route PRN Reason Start Time Stop Time Status Last Admin Dose Admin Acetaminophen (Tylenol) 650 mg Q4H PRN ORAL fever 03/24/17 00:00 04/23/17 00:00 Al Hydroxide/Mg Hydroxide (Mylanta II) 30 ml Q6H PRN ORAL dyspepsia 03/24/17 00:00 04/23/17 00:00 Amylase/Lipase/ Protease (Pancrease) 2 ea THREE TIMES A DAY ORAL 03/24/17 18:00 04/23/17 17:59 03/26/17 12:32 Dextrose (Dextrose 50%) STAT PRN IV Hypoglycemia 03/26/17 06:30 04/25/17 06:29 Diphenoxylate HCl/ Atropine (Lomotil) 2.5 mg Q4H PRN ORAL Diarrhea 03/24/17 15:45 04/23/17 15:44 03/25/17 09:45 Fluconazole (Diflucan) 100 mg DAILY ORAL 03/26/17 09:30 04/02/17 09:29 03/26/17 09:54 Insulin Aspart (NovoLOG) 6 units NOVOTIAC SUBQ 03/26/17 06:30 04/25/17 06:29 03/26/17 11:41 Insulin Aspart AC+HS SUBQ 03/25/17 06:30 04/24/17 06:29 03/26/17 11:42 Insulin Detemir (Levemir) 10 units Q12HR SUBQ 03/24/17 09:00 04/23/17 08:59 03/26/17 09:57 Lorazepam (Ativan 2mg/ml 1ml) 0.5 mg Q4H PRN IV For Anxiety 03/24/17 00:00 03/31/17 00:00 Morphine Sulfate (Morphine Sulfate) 1 mg Q4H PRN IVP For Pain 03/24/17 01:00 03/31/17 00:59 03/26/17 11:37 Ondansetron HCl (Zofran) 4 mg Q6H PRN IVP Nausea & Vomiting 03/24/17 00:00 04/23/17 00:00 Polyethylene Glycol (Miralax) 17 gm HSPRN PRN ORAL Constipation 03/24/17 21:00 04/23/17 20:59 Sodium (0.45%NS w/KCl 20mEq 1000ml) 1,000 ml @ 100 mls/hr Q10H IV 03/25/17 09:00 04/24/17 08:59 03/26/17 04:52 Zolpidem Tartrate (Ambien) 5 mg HSPRN PRN ORAL Insomnia 03/24/17 21:00 04/23/17 20:59 GISSELLE DALY Mar 26, 2017 14:51
--- NOTE | 2017-03-26 14:59 | Cardiology Report ---
APPROVED REPORT EKG Measurement Heart [id number] Sinus tachycardia Otherwise normal ECG
[2017-03-26] MEDS ORDERED: IMODIUM A-D2 M2 PO (16:24)
[2017-03-26] MEDS ORDERED: CREON DR 24,001 EACH PO (16:27)
--- NOTE | 2017-03-26 16:38 | General Progress Note ---
Assessment/Plan Assessment/Plan ASSESSMENT/RECS: # Elevated tumor markers CEA and CA 19.9. Currently are slightly higher compared to before --> imaging reviewed, no evidence of occult malignancy at this time, will need reimaging in the future --> colo and egd completed shows esophagitis michelle --> treatment as per gi # Anemia secondary to chronic disease. Ferritin elevated # Bilateral pulmonary masses/opacities - have resolved since prior admission # Cachexia, malnourishment, and weight loss since 2016 # Thrombocytopenia, has improved # Leukocytosis, mild. Has improved # BS elevation --> likely diet related # Pneumonia been treated with abx # COPD Subjective Constitutional: Reports: no symptoms HEENT: Reports: no symptoms Cardiovascular: Reports: no symptoms Respiratory: Reports: no symptoms Gastrointestinal/Abdominal: Reports: poor appetite Genitourinary: Reports: no symptoms Neurologic/Psychiatric: Reports: no symptoms Endocrine: Reports: no symptoms Hematologic/Lymphatic: Reports: anemia Allergies: Coded Allergies: No Known Allergies (Unverified , 12/17/15) Subjective bs is elevated, no fevers, no chills, no nights reported Objective Last 24 Hour Vital Signs Date Time Temp Pulse Resp B/P Pulse Ox O2 Delivery O2 Flow Rate FiO2 03/26/17 16:01 97.6 78 20 116/78 98 Room Air 03/26/17 12:07 97.5 03/26/17 11:42 97.5 69 20 98/62 97 Room Air 03/26/17 09:30 98.1 64 20 124/82 100 Room Air 03/26/17 09:06 63 18 100 03/26/17 09:00 68 20 113/84 100 Room Air 03/26/17 08:50 71 20 108/82 100 Room Air 03/26/17 08:40 63 20 105/70 100 Nasal Cannula 2.0 03/26/17 08:35 97.6 66 20 111/71 100 Nasal Cannula 2.0 03/26/17 08:17 97.9 58 18 117/81 100 Room Air 03/26/17 04:00 96.7 63 18 121/83 99 Room Air 03/26/17 00:00 96.6 72 20 105/77 100 Room Air 03/25/17 20:00 96.4 63 19 121/82 98 Room Air Intake and Output 03/25/17 03/26/17 19:00 07:00 Intake Total 1130 ml 1560 ml Balance 1130 ml 1560 ml Intake Oral 1130 ml 360 ml IV Total 1200 ml # Voids 2 7 # Bowel Movements 4 10 Laboratory Tests 03/26/17 06:20: White Blood Count 5.0, Red Blood Count 3.11L, Hemoglobin 11.1L, Hematocrit 32.1L , Mean Corpuscular Volume 103H, Mean Corpuscular Hemoglobin 35.6H, Mean Corpuscular Hemoglobin Concent 34.6, Red Cell Distribution Width 11.6, Platelet Count 151, Mean Platelet Volume 8.2, Neutrophils (%) (Auto) 48.3, Lymphocytes (% ) (Auto) 44.9, Monocytes (%) (Auto) 5.6, Eosinophils (%) (Auto) 0.7, Basophils ( %) (Auto) 0.5, Prothrombin Time 10.5, Prothromb Time International Ratio 1.0, Activated Partial Thromboplast Time 26, Sodium Level 139, Potassium Level 4.3, Chloride Level 106, Carbon Dioxide Level 24, Anion Gap 9, Blood Urea Nitrogen 5L , Creatinine 0.6L, Estimat Glomerular Filtration Rate > 60, Glucose Level 101#, Calcium Level 8.6, HIV (1&2) Antibody Rapid Negative Height (Feet): 6 Height (Inches): 1.00 Weight (Pounds): 122 General Appearance: alert EENT: TMs normal Neck: supple Cardiovascular: normal rate Respiratory/Chest: normal breath sounds Abdomen: non tender Neurologic: alert Skin: warm/dry Kee Nick Mar 26, 2017 16:38
[2017-03-26] MEDS: Lomotil 2.5mg tab ORAL PRN (16:59)
--- NOTE | 2017-03-26 21:40 | Procedure Note ---
DATE OF PROCEDURE: 03/26/2017 PROCEDURE: Upper endoscopy with biopsy and colonoscopy with biopsy. SURGEON: Geovanni Cedeño M.D. ANESTHESIOLOGIST: Margot Arredondo M.D. INSTRUMENT: Olympus adult flexible upper endoscope and colonoscope. INDICATION: Anemia with CEA. REASON FOR PROCEDURE: The procedure, risks, benefits, and possible consequences, including hemorrhage, aspiration, perforation and infection, and alternative treatments, were explained to the patient/legal guardian by Dr. Geovanni Cedeño and the patient/legal guardian understood and accepted these risks. DESCRIPTION OF PROCEDURE: After informed consent was obtained and the patient was adequately sedated, Olympus upper endoscope was advanced from the mouth into the second portion of the duodenum and retroflexion was performed in the stomach. The patient has severe Michelle esophagitis. [place] biopsy of the michelle was obtained. In the stomach, there was diffuse gastritis. Random biopsy from antrum was obtained to rule out H. pylori infection. At this time, the upper endoscope was retrieved and the patient was turned over for colonoscopy. First, a rectal exam was performed, which was normal. Then, the scope was advanced from rectum into the cecum documented by appendiceal orifice, ileocecal valve, and upper quadrant palpation. Actually quality of prep was poor in the left colon. So examination of the left colon especially sigmoid and descending colon was not adequate given this prep. The patient had a prominent ileocecal valve due to one polyp seen on the ileocecal valve, which was biopsied. The patient had two polyps in the transverse colon, both removed with cold biopsy forceps technique. These polyps were less than 1 cm and were sessile. The patient had evidence of diverticulosis actually both in the left and right colon, very prominent in the proximal ascending colon and cecum. Retroflexion of rectum showed evidence of internal hemorrhoids. SUMMARY FINDINGS: 1. Gastritis, status post biopsy. 2. Michelle esophagitis, status post brush biopsy. 3. Poor colonic prep in the left colon. So examination of the left colon was limited. 4. Two colonic polyps removed, see above for details. 5. Diverticulosis. 6. Internal hemorrhoids. RECOMMENDATIONS: 1. Follow up biopsy and treat accordingly. 2. Treat for Michelle esophagitis. 3. Check HIV. 4. The patient most probably will need a repeat colonoscopy with a better prep, given elevated CEA, anemia to rule out left colon tumor. Also the patient is to follow as an outpatient for further workup because of weight loss and elevated CEA. Geovanni Cedeño M.D. DR: KYA JOB#: [id number] CC:
--- NOTE | 2017-03-26 21:40 | Consultation ---
DATE OF CONSULTATION: 03/26/2017 ENDOCRINOLOGY CONSULTATION REFERRING PHYSICIAN: Pio Stover M.D. REASON FOR CONSULTATION: Diabetes management. HISTORY OF PRESENT ILLNESS: This is a 51-year-old male with past medical history of insulin-dependent diabetes, diagnosed 10 years ago, who presented to the hospital with an abdominal pain and discomfort and diarrhea. He mentions that he lost about 20 pounds in the past couple of months and he has been having diarrhea and generalized weakness. The patient is currently NPO for colonoscopy today and on presentation he was with diabetic ketoacidosis, treated with IV fluid and IV insulin. PAST MEDICAL HISTORY: 1. Diabetes, insulin-dependent. 2. Calcified atrophic pancreas. 3. Anemia. 4. Elevated CEA and CA 19-9. 5. Alcohol use in the past. 6. Weight loss. MEDICATIONS: Medications as an outpatient, he is on Lantus and Humalog. Dosage has not been specified. For the rest, refer to the medication reconciliation form. ALLERGY TO MEDICATIONS: None. SOCIAL HISTORY: The patient smokes about half a pack a day. Drinks beer and vodka. No drug use. FAMILY HISTORY: Positive for diabetes. REVIEW OF SYSTEMS: A 12-point review of systems was performed, the pertinent positives and negatives are as mentioned in the history of present illness. PHYSICAL EXAMINATION: GENERAL: He is awake and alert. VITAL SIGNS: Blood pressure is 112/70, pulse of 80, temperature of 98.2 degrees, and respiratory rate of 18. HEENT: Pupils are equal and reactive to light and accommodation. Sclerae are anicteric. NECK: No JVD. No thyromegaly. No bruit. LUNGS: Clear. HEART: Regular rate and rhythm. ABDOMEN: Positive bowel sounds. EXTREMITIES: No clubbing, cyanosis, or edema. LABORATORY VALUES: WBC 5.7, hemoglobin 11, hematocrit 32.9, and platelet count 142,000. Sodium 135, potassium 4.5, chloride 102, bicarbonate 19, BUN 9, creatinine 0.5, and glucose of 325. Hemoglobin A1c of 14.9. TSH of 1.2. DIAGNOSES: 1. Diabetes, insulin-dependent. 2. Diabetic ketoacidosis, resolved. 3. Calcified pancreas, most likely pancreatic insufficiency. 4. Weight loss. 5. Diarrhea. PLAN: 1. Continue with the IV fluid. 2. I agree with the Levemir 10 units b.i.d. 3. Add NovoLog 5 units before each meal once the patient's colonoscopy is done. 4. Continue with the NovoLog sliding scale. 5. Further adjustment according to the blood glucose values. Thank you, Dr. Stover, for the courtesy of this consultation. Kee Dixon M.D. DR: ENOCH/GRUPO JOB#: [id number] CC: DARRELL
--- NOTE | 2017-03-27 16:36 | Discharge Summary ---
Discharge Summary Hospital Course Date of Admission Mar 23, 2017 at 01:31 Date of Discharge Mar 26, 2017 at 20:42 Admitting Diagnosis DIABETIC KETOACIDOSIS ANTONIO Bailey is a 51 year old male who was admitted on Mar 23, 2017 at 01:31 for Diabetic Ketoacidosis Hospital Course [id number] Discharge Discharge Disposition Patient was discharged to Home (01) Discharge Diagnoses: Eva Mark NP Mar 27, 2017 16:35
--- NOTE | 2017-03-28 05:45 | Discharge Summary 2 SIG ---
DATE OF ADMISSION: 03/23/2017 DATE OF DISCHARGE: 03/26/2017 CONSULTANTS: 1. Geovanni Cedeño M.D. 2. Sebastien Stanley M.D. 3. Kee Dixon M.D. BRIEF HOSPITAL COURSE: The patient is a 51-year-old male with history of cardiomyopathy, presented to ED with increased abdominal pain, as well as high blood sugar. The patient reportedly has been having diarrhea with stools for the past 6 months and has a history of diabetes on Lantus as well as regular insulin. He reported to have high glucose level on his glucometer. On evaluation at ED, EKG showed sinus tachycardia and J point elevation was noted on the septal leads. Glucose level was 732 and anion gap of 22. The patient was started on insulin drip and was admitted to ICU for diabetic ketoacidosis. Blood sugars were monitored hourly. He was given IV hydration as well as IV insulin. He complained of weight loss of approximately 20 pounds over the past 6 months. CEA and CA-19-9 were elevated. He underwent CT of the chest, abdomen, and pelvis showed resolution of previously demonstrated mediastinal lymphadenopathy and interim resolution of previously demonstrated parenchymal opacities. He was recommended need for re-imaging in the future and underwent EGD with colonoscopy on 03/26/2017. Procedure showed gastritis, Kassandra esophagitis, colonic polyps, diverticulosis and internal hemorrhoids. Given the elevated CEA and anemia, recommended repeat colonoscopy as outpatient. His blood sugar improved. Insulin drip was discontinued. He was given Levemir 10 units b.i.d. and NovoLog 5 units before meals on top of sliding scale. Stool culture was negative for Salmonella Shigella and Campylobacter. C. difficile was negative. Ova and parasite was negative. HIV screen was negative. Hepatitis panel was negative. Cryptosporidium and Giardia antigen was negative. He was eventually discharged home. Advised to follow up with PMD. FINAL DIAGNOSES: 1. Diabetic ketoacidosis, resolved. 2. Insulin-dependent diabetes mellitus. 3. Chronic diarrhea. 4. Chronic obstructive pulmonary disease. 5. Elevated tumor markers, CEA and CA-19-9. 6. Thrombocytopenia. 7. Kassandra esophagitis. 8. Gastritis. 9. Colonic polyps. 10. Internal hemorrhoids. 11. Diverticulosis. Pio Stover M.D. I have been assigned to dictate discharge summary on this account and I was not involved in the patient's management. Eva Mark N.P. DR: TERESA JOB#: [id number] CC:
== END 2017-03-26 20:42 | disposition home or self-care (01) | DRG 420 ==
LOC: EDBD 23:26 → EMR 23:55 → ICU 03-23 01:31 → EDBEDREQ 03-23 01:43 → 3E 03-23 22:00
PROC: 0DBL8ZZ Excision of Transverse Colon, Via Natural or Artificial Opening Endoscopic (ICD-10-PCS; 2017-03-26)
PROC: 0DB58ZX Excision of Esophagus, Via Natural or Artificial Opening Endoscopic, Diagnostic (ICD-10-PCS; principal; 2017-03-26 08:06)
PROC: 0DB68ZX Excision of Stomach, Via Natural or Artificial Opening Endoscopic, Diagnostic (ICD-10-PCS; 2017-03-26 08:06)
DX: E13.10 Other specified diabetes mellitus with ketoacidosis without coma (principal); R64 Cachexia; D69.6 Thrombocytopenia, unspecified; B37.81 Candidal esophagitis; K86.1 Other chronic pancreatitis; J44.9 Chronic obstructive pulmonary disease, unspecified; Z79.4 Long term (current) use of insulin; R19.7 Diarrhea, unspecified; R97.0 Elevated carcinoembryonic antigen [CEA]; K29.70 Gastritis, unspecified, without bleeding; K63.5 Polyp of colon; K57.90 Diverticulosis of intestine, part unspecified, without perforation or abscess without bleeding; F17.200 Nicotine dependence, unspecified, uncomplicated; D63.8 Anemia in other chronic diseases classified elsewhere; Z68.1 Body mass index [BMI] 19.9 or less, adult; E11.40 Type 2 diabetes mellitus with diabetic neuropathy, unspecified; K64.8 Other hemorrhoids
CPT/HCPCS: 36415; 36600; 71010; 71260; 74177; 80048; 80053; 80061; 81003; 82009; 82150; 82270; 82378; 82607; 82705; 82746; 82803; 82962; 83036; 83605; 83615; 83690; 83735; 84100; 84443; 85025; 85610; 85651; 85730; 86140; 86301; 86703; 86705; 86709; 86803; 86999; 87045; 87324; 87329; 87340; 93005; 93970; 94003; 94150; J1815; J2405; S5561